=== PATIENT | male | born 1945 | race Caucasian/White ===

== ENCOUNTER 2020-05-25 10:49 | Inpatient (IN) | payer MEDICARE, OTHER, SELFPAY ==
[2020-05-25] VITALS (15 sets, daily range): BP systolic 106–139; BP diastolic 62–114; PULSE 78–140; RESP 18–20; TEMP 36.2–37.1; O2SAT 95–100; BMI 29.7
--- NOTE | ~2020-05-25 | XR_ITS ---
EXAMINATION: XR chest 1V portable INDICATION: Congestive heart failure and atrial fibrillation with RVR TECHNIQUE: Portable AP chest at 1322 hours COMPARISON: 03/06/2009 FINDINGS: The lung volumes are low. The lungs are free of acute opacities. There is no pleural effusi on or pneumothorax. The cardiomediastinal silhouette is normal for technique. There are partially aniya ged surgical changes in the neck and lower thoracic spine. Chronic left acromioclavicular joint separ ation is noted. IMPRESSION: 1. No acute cardiopulmonary abnormality. Reviewed, dictated and finalized at location A.
--- NOTE | 2020-05-25 11:02 | ECG_ITS ---
Measurements Intervals [place] Rate: 113 P: MD: 0 QRS: 28 QRSD: 132 T: 29 QT: 352 QTc: 483 Interpretive Statements ATRIAL FIBRILLATION WITH RAPID VENTRICULAR RESPONSE RIGHT BUNDLE BRANCH BLOCK INFERIOR INFARCT, AGE INDETERMINATE BASELINE ARTIFACT- I, II ABNORMAL ECG Electronically Signed On 05-25-2020 11:18:03 CDT by Ronny Elizondo D.O.
[2020-05-25 11:18] LABS: Basophils Absolute Auto 0.1 K/mm3 (0.0-0.1); Eosinophils Absolute Auto 0.5 K/mm3 (0-0.3); Eosinophils Percent Auto 4.4 % (0-4.4); Hemoglobin 11.1 g/dL (14.0-18.0); Immature Granulocyte Absolute 0.09 K/mm3 (0.00-0.031); Immature Granulocyte Percent A 0.8 % (0-0.5); Lymphocytes Absolute Auto 1.46 K/mm3 (0.9-3.2); Lymphocytes Percent Auto 13.7 % (18.3-44.2); Mean Corpuscular HGB Conc 31.7 g/dl (32-36); Mean Corpuscular Hemoglobin 29.2 pg (26-34); Mean Corpuscular Volume 92.1 fl (80-100); Mean Platelet Volume 9.2 fl (7.4-10.4); Monocytes Absolute Auto 0.7 K/mm3 (0.1-0.6); Monocytes Percent Auto 6.4 % (2.6-8.5); Neutrophils Absolute Auto 7.9 K/mm3 (1.3-6.7); Neutrophils Percent Auto 73.7 % (45.5-73.1); Platelet Count Result 326 k/mm3 (150-375); Red Cell Distribution Width 14.6 % (11.5-14.5); White Blood Count 10.7 K/mm3 (4.5-10.0)
[2020-05-25] MEDS: dilTIAZem HCl INJ 25 MG/5 ML VIAL 10 MG IV PUSH (11:18)
[2020-05-25 11:31] LABS: Anion Gap 12 mmol/L (8-16); Blood Urea Nitrogen 18 mg/dL (9-20); Carbon Dioxide 27 mmol/L (22-30); Chloride 99 mmol/L (98-107); Estimated CRCL calculation 71 ml/min; Estimated Glomerular Filt Rate > 60; Glucose 171 mg/dL (75-110); Potassium 4.1 mmol/L (3.4-5.0); Sodium 138 mmol/L (137-145)
[2020-05-25] MEDS: METOCLOPRAMIDE HCL INJ 10 MG/2 ML VIAL IV PUSH (11:35)
[2020-05-25] MEDS: SODIUM CHLORIDE 0.9% IV 1,000 ML 500 ML IV CONT (11:35)
[2020-05-25] MEDS: FAMOTIDINE 20 MG/2 ML VIAL IV PUSH (11:35)
[2020-05-25] MEDS: MORPHINE SULFATE 4 MG/ML INJ IV PUSH (11:35)
[2020-05-25 11:52] LABS: NT Pro B Type Natriuretic Pept 360 PG/ML (5-100); Troponin I < 0.012 ng/mL (0.000-0.034)
--- NOTE | 2020-05-25 11:54 | ED.SYNCOPE ---
HPI - Syncope General Chief Complaint: Syncope Stated Complaint: light headed Time Seen by Provider: 05/25/20 10:53 Source: patient Mode of arrival: ambulatory Limitations: no limitations History of Present Illness HPI narrative: Patient presents via EMS for near syncope at the rehab center today during physical therapy. His heart rate is A. fib rapid ventricular response, and continues to be high. He said he has had that before they gave him a medicine that stopped it. He does not have any chest pain or shortness of breath. He is in rehab for back surgery at 4 locations. He had the surgery 5 to 6 weeks ago at [facility]. He still in a lot of pain from that. He takes Percocet. complaint: felt faint and almost passed out Onset (ago): hour(s) -: minutes(s) Description of event: other (He sat in a chair at rehab and just felt faint.) Prodromal symptoms: other (Lightheaded and dizzy) Witnessed: Yes - by Bystander Context: during exertion Injuries sustained associated with event: none Current symptoms: lightheaded and other (Postop back pain) History: previous syncopal episode Treatments prior to arrival: other (Oxygen) Related Data Home Medications Medication Instructions Recorded Confirmed Tylenol Extra Strength 500 - 1,000 mg PO Q4-6H PRN 05/25/20 05/25/20 atorvastatin 40 mg PO DAILY 05/25/20 duloxetine 60 mg PO DAILY 05/25/20 enoxaparin 30 mg SUBCUT BID 05/25/20 gabapentin 600 mg PO TID 05/25/20 hydrochlorothiazide 25 mg PO DAILY 05/25/20 lidocaine [Lidoderm] 1 patch TOPICAL DAILY 05/25/20 metformin 1,000 mg PO DAILY 05/25/20 metoprolol succinate 50 mg PO DAILY 05/25/20 auhnukkwxucn-awg-nkvr-FA-vit K tablet PO 05/25/20 [Adults Multivitamin] polyethylene glycol 3350 [Miralax] 17 g PO DAILY 05/25/20 Allergies Allergy/AdvReac Type Severity Reaction Status Date / Time No Known Allergies Allergy Mild Unverified 07/24/18 10:06 Review of Systems Review of Systems: Narrative: CONSTITUTIONAL: Denies fever, chills, or sweats. EYES: Denies visual changes, redness, or discharge. ENT: Denies rhinorrhea, congestion, sore throat, or otalgia. CARDIOVASCULAR: Denies chest pain, palpitations, or edema. RESPIRATORY: Denies cough or dyspnea. GASTROINTESTINAL: Denies abdominal pain, nausea, vomiting, or diarrhea. GENITOURINARY: Denies dysuria or hematuria. SKIN: Denies rash or itching. MUSCULOSKELETAL: Denies back pain, joint pain, or myalgia. NEUROLOGIC: Denies headache, numbness, or weakness. He did have lightheadedness and dizziness. All systems reviewed & are unremarkable except as noted in HPI and below PMFSH Past Medical History Medical History Atrial fibrillation with RVR Surgical History Surgical History (Updated 05/25/20 @ 11:57 by Tashia Light MD) History of back surgery Exam Narrative: Exam Narrative: GENERAL: Looks pale, and sickly. HEAD: Normocephalic, atraumatic. EYES: PERRLA and EOMI. ENT: Nares clear, no rhinorrhea or epistaxis. Mucous membranes moist. NECK: Supple. CHEST: Clear to auscultation. No respiratory distress. Bandage on his upper right chest from the cervical surgery. HEART: Regular rate and rhythm. No murmur heard. Normal peripheral pulses. ABDOMEN: Soft, nontender, nondistended, normal active bowel sounds. EXTREMITIES: No edema. SKIN: Warm, dry, no rash. NEURO: No focal deficits. Alert and oriented x3. PSYCH: Unhappy and sad. 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 His heart rate slowed down his blood pressure was held he can be admitted. Date: 05/25/20 Time: 13:00 Consultations Consultation #1: Calling Mariela to admit to Dr. Arteaga. She accepts. Date: 05/25/20 Time: 13:00 Consultation #2: Calling Tereza Stephen to consult with Dr. Acosta. Date: 05/25/20 Time: 13:00 Vital Signs Vital signs: Vital Signs Temperature 98.7 F 05/25/20 10:49 Pulse Rate 140 H 05/25/20 10:49 Resp
--- NOTE | 2020-05-25 12:24 | PC.NURSE ---
patient refused orthostatic v/s stating he was in too much pain to move
[2020-05-25 14:50] LABS: Troponin I < 0.012 ng/mL (0.000-0.034)
--- NOTE | 2020-05-25 16:35 | ADMGEN ---
This patient, Ayo Judge, was admitted to IMU Room 211-01 on 05-25-2020 at 1555. Patient/family oriented to hospital policies and general routines including ID bracelet, bed and alarms, visiting hours, pain management, procedures, bathroom and other care routines, personal items, smoking policy, room service/diet, and visiting hours. Valuables list has been completed. Information on how to activate the Rapid Response Team has been discussed. Patient/Family are encouraged to report perceived risks to care and to ask questions if they do not understand what they are told or what they should do.
--- NOTE | 2020-05-25 17:16 | ECG_ITS ---
Measurements Intervals [place] Rate: 78 P: 56 HI: 284 QRS: 8 QRSD: 136 T: 63 QT: 401 QTc: 458 Interpretive Statements SINUS RHYTHM WITH FIRST DEGREE AV BLOCK RIGHT BUNDLE BRANCH BLOCK INFERIOR INFARCT, AGE INDETERMINATE ABNORMAL ECG Electronically Signed On 05-25-2020 19:22:41 CDT by Ronny Elizondo D.O.
[2020-05-25 18:03] LABS: Glucose Point of Care 105 (65-105)
--- NOTE | 2020-05-25 18:36 | PM.IMHP ---
H&P: HPI History of Present Illness Date/Time: 05/25/20 18:36 Chief complaint: A FIB RVR,POST OP PAIN,NEAR SYNCOPE Narrative: Ayo Judge is a 74 year old male the patient is currently at [facility] for rehab. Patient stated that he had back surgery approximately 6-8 weeks ago at [facility]. The patient is there for rehab facility. He is not quite sure if he had atrial fibrillation before but he thinks that he had something similar and they gave him Digoxin And then he said his heart rate was back to normal. patient had gotten up for physical therapy felt dizzy and had a near syncopal episode. Patient recently had back surgery in 4 different locations and had been wearing a neck brace. The patient stated that he is in a lot of pain and has been taking Percocet. He did not have any chest pain or palpitations but he felt lightheaded and dizzy. The patient stated that he is in pain today. The patient was found to be in AFib with RVR. The patient was started on a Cardizem drip. patient was given Reglan for nausea as well as Pepcid and IV fluids. Cardiology has been consulted. The patient had converted to sinus rhythm shortly after he was admitted to IMU. Cardiology has been called in orders received. The patient had been on metoprolol succinate are ready. However this dose has been changed by Cardiology. I have spent approximately 45 minutes in the patient's room. Date of service is 05/25/2020. Review of Systems Review of Systems: All systems reviewed & are unremarkable except as noted in HPI and below Constitutional: Constitutional: Reports as per HPI and Reports no additional constitutional complaints Eyes: Eyes: Reports as per HPI and Reports no additional eye complaints ENT: Reports system reviewed and no additional complaints, except as documented and Reports Normal hearing present Cardiovascular: Cardiovascular: Reports no additional cardiovascular complaints Respiratory: Respiratory: Reports no additional respiratory complaints and Reports no additional respiratory complaints Gastrointestinal: Gastrointestinal: Reports as per HPI and Reports no additional gastrointestinal complaints Musculoskeletal: Musculoskeletal: Reports no additional musculoskeletal complaints Integumentary/Breasts: Skin/Breast: Reports system reviewed and no additional complaints, except as docu and Reports as per HPI Neurologic: Reports system reviewed and no additional complaints, except as documented, Reports as per HPI and Reports Normal hearing present Psychiatric: Psychiatric: Reports no additional psychiatric complaints and Reports as per HPI Endocrine: Endocrine: Reports no additional endocrine complaints Hematologic/Lymphatic: Hematologic/Lymphatic: Reports no additional hematologic/lymphatic complaints Allergic/Immunologic: Allergic/Immunologic: Reports no additional allergic/immunologic complaints [facility] Past Medical History Medical History (Updated 05/25/20 @ 19:18 by Mariela Solomon NP) Aftercare following right shoulder joint replacement surgery Atrial fibrillation with RVR CAD (coronary artery disease) DM2 (diabetes mellitus, type 2) [id number] Hyperlipidemia Osteoarthritis Surgical History Surgical History (Updated 05/25/20 @ 19:18 by Mariela Solomon NP) H/O carotid endarterectomy bilat with focal cord injury H/O heart artery stent 2 cardiac stents 0 9 at [facility] History of back surgery for different area is for his back surgery. 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 His had a 3rd right total knee replacement in the s. Family History Family History (Updated 05/25/20 @ 19:03 by Mariela Solomon NP) Mother Cancer Father Cancer Hypertension Cerebrovascular accident Sibling Diabetes mellitus Social History Social History (Updated 05/25/20 @ 19:18 by Mariela Solomon NP) Social History: the [place]
[2020-05-25 18:55] LABS: Troponin I < 0.012 ng/mL (0.000-0.034)
[2020-05-25] MEDS: METOPROLOL TARTRATE 50 MG TAB PO (21:09)
[2020-05-25 21:17] LABS: Glucose Point of Care 134 (65-105)
[2020-05-26] VITALS (20 sets, daily range): BP systolic 99–147; BP diastolic 45–86; PULSE 81–101; RESP 18–85; TEMP 36–36.7; O2SAT 20–99; BMI 29.7
--- NOTE | 2020-05-26 | ECHO_ITS ---
Patient Info Name: Ayo Judge Age: 74 years : 1945 Gender: Male Ht: 68 in Wt: 196 lbs BSA: 2.09 m2 HR: 90 bpm BP: 99 / 74 mmHg Heart Rhythm: Sinus Rhythm Technical Quality: Fair Exam Date: 05/26/2020 11:34 AM Exam Location: [facility] Pulmonary Patient Status: Inpatient Admit Date: 05/25/2020 Staff Ordering Physician: Mariela Solomon NP Property Claims Adjuster: Shiv Kingston RDCS Attending Provider: Jose Arteaga MD Referring Physician: Juanito BEAUCHAMP; Exam Type: CA echo dop color flow w con Study Info Indications I48.0 - Paroxysmal atrial fibrillation Complete two-dimensional, color flow and Doppler transthoracic echocardiogram is performed with contrast to opacify the left ventricle and to improve the deliniation of the left ventricle endocardial borders. Contrast/Agitated Saline Contrast/Ag. Saline: Definity Amount: 3.00 ml Existing IV Access: Yes History/Risk Factors New onset of Afib; CAD s/p stents x2 2009, DM2. Summary 1. Left ventricular systolic function is normal, estimated at 55-60%. 2. There is mildly increased left ventricular wall thickness. 3. The left ventricular diastolic function is grade I diastolic dysfunction. 4. Right ventricular chamber dimension is mildly enlarged. 5. Right ventricular systolic function is normal. 6. Right atrial chamber dimension is mildly enlarged. 7. There is mild aortic valve stenosis with a peak velocity of 185.73 cm/s, mean gradient of 5 mmHg, and aortic valve area of 1.60 cm2. 8. Unable to estimate PA systolic pressure due to poor spectral resolution of tricuspid regurgitant jet velocity. 9. Technically difficult study with limited views despite definity echo contrast enhancement. Left Ventricle Left ventricular chamber dimension is normal. Left ventricular systolic function is normal, estimated at 55-60%. There is mildly increased left ventricular wall thickness. The left ventricular diastolic function is grade I diastolic dysfunction. Right Ventricle Right ventricular chamber dimension is mildly enlarged. Right ventricular systolic function is normal. Left Atria Left atrial chamber dimension is not well visualized. Right Atria Right atrial chamber dimension is mildly enlarged. Aortic Valve The aortic valve is not well visualized. There is mild aortic valve stenosis with a peak velocity of 185.73 cm/s, mean gradient of 5 mmHg, and aortic valve area of 1.60 cm2. Pulmonic Valve The pulmonic valve is not well visualized. Mitral Valve The mitral valve has normal leaflets. There is trace mitral valve regurgitation. The mitral valve annulus is mildly calcified. Tricuspid Valve The tricuspid valve leaflets are not well visualized. Unable to estimate PA systolic pressure due to poor spectral resolution of tricuspid regurgitant jet velocity. Pericardium/Pleural The pericardium appears not well visualized. Aorta The aortic root size at the sinus of Valsalva is normal. Left Ventricular Outflow Tract Name Value Normal LVOT 2D LVOT Diameter 1.96 cm LVOT Doppler LVOT Peak Gradient
[2020-05-26 07:38] LABS: Alanine Aminotransferase 14 U/L (4-50); Albumin Level 3.7 g/dL (3.5-5.1); Alkaline Phosphatase 108 U/L (38-126); Anion Gap 8 mmol/L (8-16); Aspartate Amino Transferase 26 U/L (17-59); Bilirubin,Total 0.6 mg/dL (0.2-1.3); Blood Urea Nitrogen 18 mg/dL (9-20); Calcium 9.1 mg/dL (8.4-10.2); Carbon Dioxide 29 mmol/L (22-30); Chloride 99 mmol/L (98-107); Estimated CRCL calculation 80 ml/min; Estimated Glomerular Filt Rate > 60; Glucose 123 mg/dL (75-110); Magnesium 1.5 mg/dL (1.6-2.3); Potassium 3.9 mmol/L (3.4-5.0); Sodium 136 mmol/L (137-145)
[2020-05-26 07:43] LABS: Glucose Point of Care 131 (65-105)
[2020-05-26 08:37] LABS: Basophils Absolute Auto 0.1 K/mm3 (0.0-0.1); Eosinophils Absolute Auto 0.5 K/mm3 (0-0.3); Eosinophils Percent Auto 4.2 % (0-4.4); Hematocrit 33.4 % (42.0-52.0); Hemoglobin 10.8 g/dL (14.0-18.0); Immature Granulocyte Percent A 0.9 % (0-0.5); Lymphocytes Absolute Auto 1.28 K/mm3 (0.9-3.2); Lymphocytes Percent Auto 11.2 % (18.3-44.2); Mean Corpuscular HGB Conc 32.3 g/dl (32-36); Mean Corpuscular Hemoglobin 29.6 pg (26-34); Mean Corpuscular Volume 91.5 fl (80-100); Mean Platelet Volume 9.1 fl (7.4-10.4); Monocytes Absolute Auto 0.6 K/mm3 (0.1-0.6); Monocytes Percent Auto 5.2 % (2.6-8.5); Neutrophils Absolute Auto 8.8 K/mm3 (1.3-6.7); Neutrophils Percent Auto 77.5 % (45.5-73.1); Platelet Count Result 361 k/mm3 (150-375); Red Blood Count 3.65 M/mm3 (4.6-6.20); Red Cell Distribution Width 14.5 % (11.5-14.5); White Blood Count 11.4 K/mm3 (4.5-10.0)
[2020-05-26] MEDS: ATORVASTATIN 40 MG TABLET PO (09:11)
[2020-05-26] MEDS: SENNA/DOCUSATE SODIUM TABLET 1 TAB PO ×2 (09:12→17:26)
[2020-05-26] MEDS: GABAPENTIN 300 MG CAPSULE 600 MG PO ×3 (09:12→17:26)
[2020-05-26] MEDS: ENOXAPARIN 30 MG/0.3 ML SYRINGE SUB-Q ×2 (09:12→17:26)
[2020-05-26] MEDS: MULTIVITAMINS /C LUTEIN (CENTRUM SILVER) TABLET *BKC 1 TAB PO (09:12)
[2020-05-26] MEDS: DULoxetine HCL 60 MG CAPSULE.DR PO (09:12)
[2020-05-26] MEDS: hydroCHLOROthiazide 25 MG TABLET PO (09:12)
[2020-05-26] MEDS: metFORMIN HCL 500 MG TABLET 1000 MG PO (09:12)
--- NOTE | 2020-05-26 09:12 | PM.IMPN ---
Progress Note: A&P Assessment and Plan (1) Atrial fibrillation with RVR: Code(s): I48.91 - Unspecified atrial fibrillation Status: Acute Assessment and Plan: Started on IV diltiazem from the emergency room which has been discontinued with patient receiving an additional dose of metoprolol overnight. On review of telemetry on 05/26/2020, patient is in sinus rhythm. Still having fluctuating heart rate with heart rate increased into 130s at times. Does also appear to have first-degree AV block. Cardiology consulted and appreciate input. Discussed with Dr. Garcia today. Already on metoprolol succinate ER but will increase dose. Continue to monitor heart rate and adjust treatment as needed. Currently on Lovenox but looking at Eliquis or Xarelto when ready for discharge. PT/OT ordered as patient was already in rehab. COVID-19 testing ordered as patient will need this to return to [facility]. Continue to monitor. Discharge when stable and cleared by Cardiology. (2) Hypomagnesemia: Code(s): E83.42 - Hypomagnesemia Status: Acute Assessment and Plan: Magnesium 1.5 today with IV replacement given. Continue to follow and replace as needed. (3) CAD (coronary artery disease): Qualifiers: Associated angina: without angina Coronary Disease-Associated Artery/Lesion type: [place] artery [place] vs. transplanted heart: [place] heart Qualified Code(s): I25.10 - Atherosclerotic heart disease of [place] coronary artery without angina pectoris Code(s): I25.10 - Atherosclerotic heart disease of [place] coronary artery without angina pectoris Status: Chronic Assessment and Plan: Known heart disease. Currently with no chest pain. Remains on metoprolol with dosage adjustment for heart rate as noted above. Continue atorvastatin. Will continue to monitor. (4) DM2 (diabetes mellitus, type 2): Qualifiers: Diabetes mellitus chcf insulin use: without chcf use Diabetes mellitus complication status: with other specified complication Qualified Code(s): E11.69 - Type 2 diabetes mellitus with other specified complication Code(s): E11.9 - Type 2 diabetes mellitus without complications Status: Chronic Assessment and Plan: Glucose reviewed on 05/26/2020 and presently stable. Remains on home metformin. Sliding scale insulin available as needed. Will continue to monitor and adjust treatment as needed. (5) CHF (congestive heart failure): Qualifiers: Heart failure chronicity: unspecified Heart failure type: unspecified Qualified Code(s): I50.9 - Heart failure, unspecified Code(s): I50.9 - Heart failure, unspecified Status: Acute Assessment and Plan: Echocardiogram has been ordered with results pending. Remains on metoprolol. No fluid overload at this point. (6) Hyperlipidemia: Qualifiers: Hyperlipidemia type: unspecified Qualified Code(s): E78.5 - Hyperlipidemia, unspecified Code(s): E78.5 - Hyperlipidemia, unspecified Status: Chronic Assessment and Plan: Continue atorvastatin. (7) Osteoarthritis: Qualifiers: Osteoarthritis location: unspecified site Osteoarthritis type: unspecified Qualified Code(s): M19.90 - Unspecified osteoarthritis, unspecified site Code(s): M19.90 - Unspecified osteoarthritis, unspecified site Status: Acute Assessment and Plan: No current issue. Will monitor. PT/OT to evaluate and treat. (8) DVT prophylaxis: Code(s): Z29.9 - Encounter for prophylactic measures, unspecified Status: Acute Assessment and Plan: Lovenox. Time Spent With Patient Time with patient: 15 - 25 minutes Subjective Date/time seen: 05/26/20 09:12 Interval history: Date of Service: 05/26/2020. Patient admitted with atrial fibrillation with RVR. Was on IV diltiazem last night but converted. Given additional oral metoprolol.
[2020-05-26] MEDS: METOPROLOL SUCCINATE EXT REL 100 MG TABCR PO (09:13)
[2020-05-26] MEDS: polyethylene glycoL 3350 17 GM POWD.PACK PO (09:13)
--- NOTE | 2020-05-26 11:14 | ECG_ITS ---
Measurements Intervals [place] Rate: 89 P: 66 NV: 304 QRS: 20 QRSD: 142 T: 48 QT: 393 QTc: 480 Interpretive Statements SINUS RHYTHM WITH FIRST DEGREE AV BLOCK FREQUENT ATRIAL PREMATURE COMPLEXES RIGHT BUNDLE BRANCH BLOCK INFERIOR INFARCT, AGE INDETERMINATE BASELINE WANDER- I, II, III, V1, V4-V5 ABNORMAL ECG Electronically Signed On 05-26-2020 16:39:45 CDT by Ronny Elizondo D.O.
[2020-05-26 12:02] LABS: Glucose Point of Care 124 (65-105)
[2020-05-26] MEDS: PERFLUTREN LIPID MICROSPHERES 1.5 ML VIAL DILUTED TO 10 ML TOTAL VOLUME IV PUSH (12:09)
--- NOTE | 2020-05-26 12:24 | PM.CNCAR ---
Assessment and Plan Assessment and plan (1) Atrial flutter with rapid ventricular response: Code(s): I48.92 - Unspecified atrial flutter Status: Acute Assessment and Plan: Paroxysmal. Sinus rhythm with first-degree AV block generally, however, while of episodes of RVR, tolerating reasonably well. Increase Toprol XL to 150 mg daily. Given additional 50 mg p.o. x1 in addition to 100 mg he already received. Systemic anticoagulation. CHADS2 Vasc score 4. discussed embolic stroke risk versus bleeding in great detail. All questions answered to his satisfaction. Discussed options including warfarin, and NOAC's with preference toward Eliquis 5mg BID or Xarelto 20mg daily if able to afford. In which case, we would discontinue enoxaparin and reduce aspirin to 81 mg daily. As he has paroxysmal no indication for cardioversion unless sustained with refractory rate. Medical management and rate control strategy advised at this time. Outpatient considerations for more advanced therapy including ablation of atrial flutter. Will review 2D echocardiogram when available. (2) CAD (coronary artery disease): Qualifiers: Coronary Disease-Associated Artery/Lesion type: [place] artery [place] vs. transplanted heart: [place] heart Associated angina: without angina Qualified Code(s): I25.10 - Atherosclerotic heart disease of [place] coronary artery without angina pectoris Code(s): I25.10 - Atherosclerotic heart disease of [place] coronary artery without angina pectoris Status: Chronic Assessment and Plan: stable, continue current medical therapy. continue statin, beta-huan (3) Hyperlipidemia: Qualifiers: Hyperlipidemia type: unspecified Qualified Code(s): E78.5 - Hyperlipidemia, unspecified Code(s): E78.5 - Hyperlipidemia, unspecified Status: Chronic Assessment and Plan: atorvastatin 40 mg at bedtime. check lipid panel. (4) DM2 (diabetes mellitus, type 2): Code(s): E11.9 - Type 2 diabetes mellitus without complications Status: Chronic Assessment and Plan: Per primary service History of Present Illness History of Present Illness Consult date/time: Date of service: 05/26/20 12:24 This is a cardiology consultation at the request of Mariela Solomon PA of the [facility] for our opinion regarding atrial flutter with RVR. Requesting physician: Mariela Solomon NP Consult reason: atrial fibrillation (atrial flutter) Reason For Visit: A FIB RVR,POST OP PAIN,NEAR SYNCOPE Narrative: Patient is a 74-year-old male past medical history significant for CAD hypertension, diabetes mellitus with recent [place] for rehabilitation after having undergone extensive back surgery at [facility] in the past 2 months. Was noted that prior to arrival he had been participating with physical therapy when he felt dizzy and experienced a near syncopal event. Patient denied palpitations, chest pain or significant shortness of breath and was sent to the emergency room for evaluation. He was found to be in atrial fibrillation w/ RVR, however, telemetry revealed atrial flutter with variable AV block. nonetheless, patient was initiated on a diltiazem infusion when he spontaneously converted to sinus rhythm with a first-degree AV block and PACs. As an outpatient patient was on Toprol XL 50 mg daily which was increased to 100 mg daily. Diltiazem infusion has been discontinued. He states he feels fine with exception of back and knee pain. No chest pain any time. Electrolytes have been stable with exception of magnesium 1.5. TSH 2.450 an troponins negative. He was on enoxaparin 30 mg subcutaneous twice daily at rehabilitation for DVT prophylaxis. Review of Systems Review of Systems: All systems reviewed & are unremarkable except as noted in HPI and below Constitutional: Constitutional: Reports as per HPI, Reports no additional constitutional complaints
[2020-05-26] MEDS: MAGNESIUM SULF 2 GM/WATER 50ML 2 GM/50 ML BAG IVPB (12:35)
[2020-05-26] MEDS: METOPROLOL SUCCINATE EXT REL 50 MG TABCR PO (12:35)
[2020-05-26] MEDS: SILVERGEL (ELTA) 45 ML 1 APPLIC TOPICAL (12:37)
--- NOTE | 2020-05-26 14:55 | PCOTNOTE ---
Attempted OT evaluation, Pt reports would rather do therapy tomorrow due to wanting to eat and having 10/10 pain. RN notified. Will attempt OT evaluation in AM.
[2020-05-26 17:32] LABS: Glucose Point of Care 110 (65-105)
[2020-05-26 20:36] LABS: Glucose Point of Care 152 (65-105)
[2020-05-27] VITALS (14 sets, daily range): BP systolic 116–136; BP diastolic 60–84; PULSE 83–106; RESP 16–20; TEMP 36.2–36.8; O2SAT 95–100
[2020-05-27 05:12] LABS: Anion Gap 8 mmol/L (8-16); Blood Urea Nitrogen 20 mg/dL (9-20); Calcium 8.8 mg/dL (8.4-10.2); Carbon Dioxide 29 mmol/L (22-30); Chloride 99 mmol/L (98-107); Estimated CRCL calculation 70 ml/min; Estimated Glomerular Filt Rate > 60; Glucose 133 mg/dL (75-110); Magnesium 1.7 mg/dL (1.6-2.3); Sodium 136 mmol/L (137-145)
[2020-05-27 08:22] LABS: Glucose Point of Care 121 (65-105)
--- NOTE | 2020-05-27 09:37 | P.CDI_ITS ---
CDI Query Clarification Request - CHF, type unspecified and chronicity unspecified has been documented - 05/26 Echo summary EF 55-60%, grade 1 diastolic dysfunction Please further specify type and acuity of CHF: * Systolic *Acute * Diastolic *Chronic * Both systolic and diastolic *Acute on chronic * Unable to determine *Unable to determine <Coleen Salomon RN - Last Filed: 05/27/20 09:40> ACUTE ON CHRONIC DIASTOLIC CHF EXACERBATION <Mariana Reno MD - Last Filed: 05/28/20 08:59>
--- NOTE | 2020-05-27 09:42 | PCOTNOTE ---
OT evaluation attempted. Per RN patient hold for therapy today. Will follow.
[2020-05-27] MEDS: SILVERGEL (ELTA) 45 ML 1 APPLIC TOPICAL (09:46)
[2020-05-27] MEDS: METOPROLOL SUCCINATE EXT REL 100 MG TABCR PO (09:47)
[2020-05-27] MEDS: MULTIVITAMINS /C LUTEIN (CENTRUM SILVER) TABLET *BKC 1 TAB PO (09:47)
[2020-05-27] MEDS: METOPROLOL SUCCINATE EXT REL 50 MG TABCR PO (09:47)
[2020-05-27] MEDS: hydroCHLOROthiazide 25 MG TABLET PO (09:48)
[2020-05-27] MEDS: metFORMIN HCL 500 MG TABLET 1000 MG PO (09:48)
[2020-05-27] MEDS: ATORVASTATIN 40 MG TABLET PO (09:49)
[2020-05-27] MEDS: ENOXAPARIN 30 MG/0.3 ML SYRINGE SUB-Q ×2 (09:49→17:27)
[2020-05-27] MEDS: DULoxetine HCL 60 MG CAPSULE.DR PO (09:49)
[2020-05-27] MEDS: GABAPENTIN 300 MG CAPSULE 600 MG PO ×3 (09:49→17:27)
[2020-05-27] MEDS: SENNA/DOCUSATE SODIUM TABLET 1 TAB PO ×2 (09:49→17:28)
--- NOTE | 2020-05-27 11:31 | PM.PNCARD ---
Progress Note: A&P Assessment and Plan (1) Atrial flutter with rapid ventricular response: Code(s): I48.92 - Unspecified atrial flutter Status: Acute Assessment and Plan: Paroxysmal. Sinus rhythm with first-degree AV block generally, however, while in episodes of RVR, tolerating reasonably well. Increased Toprol XL to 150 mg daily. Systemic anticoagulation. CHADS2 Vasc score 4. Dr Garcia discussed embolic stroke risk versus bleeding in great detail. Options were discussed as well. Discontinue enoxaparin and reduce aspirin to 81 mg daily when DOAC is started. Will hold off starting until neurological status is sorted out. Medical management and rate control strategy advised at this time. Outpatient considerations for more advanced therapy including ablation of atrial flutter. Echo 05/26/2020: 1. Left ventricular systolic function is normal, estimated at 55-60%. 2. There is mildly increased left ventricular wall thickness. 3. The left ventricular diastolic function is grade I diastolic dysfunction. 4. Right ventricular chamber dimension is mildly enlarged. 5. Right ventricular systolic function is normal. 6. Right atrial chamber dimension is mildly enlarged. 7. There is mild aortic valve stenosis with a peak velocity of 185.73 cm/s, mean gradient of 5 mmHg, and aortic valve area of 1.60 cm2. 8. Unable to estimate PA systolic pressure due to poor spectral resolution of tricuspid regurgitant jet velocity. 9. Technically difficult study with limited views despite definity echo contrast enhancement. (2) CAD (coronary artery disease): Qualifiers: Coronary Disease-Associated Artery/Lesion type: [place] artery [place] vs. transplanted heart: [place] heart Associated angina: without angina Qualified Code(s): I25.10 - Atherosclerotic heart disease of [place] coronary artery without angina pectoris Code(s): I25.10 - Atherosclerotic heart disease of [place] coronary artery without angina pectoris Status: Chronic Assessment and Plan: stable, continue current medical therapy. continue statin, beta-huan (3) Hyperlipidemia: Qualifiers: Hyperlipidemia type: unspecified Qualified Code(s): E78.5 - Hyperlipidemia, unspecified Code(s): E78.5 - Hyperlipidemia, unspecified Status: Chronic Assessment and Plan: atorvastatin 40 mg at bedtime. Check lipid panel. (4) DM2 (diabetes mellitus, type 2): Qualifiers: Diabetes mellitus termite control servicer insulin use: without detention use Diabetes mellitus complication status: with other specified complication Qualified Code(s): E11.69 - Type 2 diabetes mellitus with other specified complication Code(s): E11.9 - Type 2 diabetes mellitus without complications Status: Chronic Assessment and Plan: Per primary service Additional Plan Plan discussed with Dr Acosta [id number] 05/27/2020 Subjective Date/time seen: 05/27/20 11:31 Interval history: Follow up for: atrial flutter with rapid ventricular response. Converted on diltiazem overnight. Date of Service: 05/27/2020. Subjective: Denied chest discomfort or shortness of breath. Concerned about possible seizures. States he was lightheaded when they were trying to get him up this morning. Slightly agitated. Not sure about all the medications he received this morning. Review of Systems Review of Systems: All systems reviewed & are unremarkable except as noted in HPI and below Constitutional: Constitutional: Reports as per HPI and Reports fatigue Eyes: Eyes: Denies blurry vision ENT: Reports Normal hearing present and Denies headache(s) Cardiovascular: Cardiovascular: Denies chest pain, Denies leg edema, Reports lightheadedness ( Dizziness, near syncope), Denies palpitations and Denies dys
--- NOTE | 2020-05-27 12:28 | PM.IMPN ---
Progress Note: A&P Assessment and Plan (1) Atrial fibrillation with RVR: Code(s): I48.91 - Unspecified atrial fibrillation Status: Acute Assessment and Plan: Toprol XL to 150 mg daily. lovenox and ASA. COVID-19 testing ordered as patient will need this to return to [facility]. Continue to monitor. Discharge when stable and cleared by Cardiology. (2) Hypomagnesemia: Code(s): E83.42 - Hypomagnesemia Status: Acute Assessment and Plan: Magnesium is corrected. (3) CAD (coronary artery disease): Qualifiers: Coronary Disease-Associated Artery/Lesion type: [place] artery [place] vs. transplanted heart: [place] heart Associated angina: without angina Qualified Code(s): I25.10 - Atherosclerotic heart disease of [place] coronary artery without angina pectoris Code(s): I25.10 - Atherosclerotic heart disease of [place] coronary artery without angina pectoris Status: Chronic Assessment and Plan: Known heart disease. Continue home medications (4) DM2 (diabetes mellitus, type 2): Qualifiers: Diabetes mellitus nursing home insulin use: without long term care social worker use Diabetes mellitus complication status: with other specified complication Qualified Code(s): E11.69 - Type 2 diabetes mellitus with other specified complication Code(s): E11.9 - Type 2 diabetes mellitus without complications Status: Chronic Assessment and Plan: pt is on home metformin. SSI (5) CHF (congestive heart failure): Qualifiers: Heart failure chronicity: unspecified Heart failure type: unspecified Qualified Code(s): I50.9 - Heart failure, unspecified Code(s): I50.9 - Heart failure, unspecified Status: Acute Assessment and Plan: Left ventricular chamber dimension is normal. Left ventricular systolic function is normal, estimated at 55-60%. There is mildly increased left ventricular wall thickness. The left ventricular diastolic function is grade I diastolic dysfunction. (6) Hyperlipidemia: Qualifiers: Hyperlipidemia type: unspecified Qualified Code(s): E78.5 - Hyperlipidemia, unspecified Code(s): E78.5 - Hyperlipidemia, unspecified Status: Chronic Assessment and Plan: Continue atorvastatin. (7) Osteoarthritis: Qualifiers: Osteoarthritis location: unspecified site Osteoarthritis type: unspecified Qualified Code(s): M19.90 - Unspecified osteoarthritis, unspecified site Code(s): M19.90 - Unspecified osteoarthritis, unspecified site Status: Acute Assessment and Plan: No current issue. Will monitor. PT/OT to evaluate and treat. (8) DVT prophylaxis: Code(s): Z29.9 - Encounter for prophylactic measures, unspecified Status: Acute Assessment and Plan: Lovenox. (9) Seizure: Code(s): R56.9 - Unspecified convulsions Status: Acute Assessment and Plan: Witnessed seizure in bed sugars and mg levels are stable. IV keppra started, seizure precautions, neurology consulted. Subjective Date/time seen: 05/27/20 12:28 Interval history: Patient admitted with atrial fibrillation with RVR. Pt had a witness seizure at the bedside. Neurology consulted. IV keppra started pt has a history of back surgery. History of DM, CAD and CHF and HLD. Pt HR is in the 100s today Review of Systems Review of Systems: All systems reviewed & are unremarkable except as noted in HPI and below ROS unobtainable: Yes other (seizure generalised ) Exam Narrative: Exam Narrative: Awake and alert. Resp: Auscultation: clear to auscultation bilaterally, no rales and no wheezes Cardio: Palpation: normal PMI Heart sounds: S2 normal heart sound present GI: Inspection: other ( Surgical incision well approximated to right midline abdomen. Diagonal ) Auscultation: normal bowel sounds Skin: General skin exam: normal color and no rashes or lesions noted Lesions:
[2020-05-27 12:36] LABS: Glucose Point of Care 151 (65-105)
[2020-05-27 14:19] LABS: SARS-CoV-2 RNA PCR Negative
--- NOTE | 2020-05-27 14:54 | WPDNEURCNPN ---
Assessment and Plan Assessment and plan (1) Seizure: Code(s): R56.9 - Unspecified convulsions Status: Acute (2) Hypomagnesemia: Code(s): E83.42 - Hypomagnesemia Status: Acute (3) Atrial flutter with rapid ventricular response: Code(s): I48.92 - Unspecified atrial flutter Status: Acute (4) DVT prophylaxis: Code(s): Z29.9 - Encounter for prophylactic measures, unspecified Status: Acute (5) H/O heart artery stent: Code(s): Z95.5 - Presence of coronary angioplasty implant and graft Status: Acute (6) CAD (coronary artery disease): Qualifiers: Coronary Disease-Associated Artery/Lesion type: [place] artery [place] vs. transplanted heart: [place] heart Associated angina: without angina Qualified Code(s): I25.10 - Atherosclerotic heart disease of [place] coronary artery without angina pectoris Code(s): I25.10 - Atherosclerotic heart disease of [place] coronary artery without angina pectoris Status: Chronic (7) Osteoarthritis: Qualifiers: Osteoarthritis location: unspecified site Osteoarthritis type: unspecified Qualified Code(s): M19.90 - Unspecified osteoarthritis, unspecified site Code(s): M19.90 - Unspecified osteoarthritis, unspecified site Status: Acute (8) Hyperlipidemia: Qualifiers: Hyperlipidemia type: unspecified Qualified Code(s): E78.5 - Hyperlipidemia, unspecified Code(s): E78.5 - Hyperlipidemia, unspecified Status: Chronic (9) DM2 (diabetes mellitus, type 2): Qualifiers: Diabetes mellitus supervisor long goods insulin use: without fci use Diabetes mellitus complication status: with other specified complication Qualified Code(s): E11.69 - Type 2 diabetes mellitus with other specified complication Code(s): E11.9 - Type 2 diabetes mellitus without complications Status: Chronic (10) CHF (congestive heart failure): Qualifiers: Heart failure chronicity: unspecified Heart failure type: unspecified Qualified Code(s): I50.9 - Heart failure, unspecified Code(s): I50.9 - Heart failure, unspecified Status: Acute (11) Post-op pain: Code(s): G89.18 - Other acute postprocedural pain Status: Acute (12) Atrial fibrillation with RVR: Code(s): I48.91 - Unspecified atrial fibrillation Status: Acute Additional Plan discussed with the patient and also the attending nurse we should continue the Keppra and the present dosages and also recommended a brain MRI without contrast and an EEG I will be happy to follow while he is here Consult date: 05/27/20 Time Seen: 14:00 HPI: Ayo Judge is a 74 year old male this gentleman is right-handed make and alert and does not recall any of the seizure described by the attending nurse who was present at the time of the examination apparently while walking to the bathroom he had a brief spell of shaking lasting for about 5 seconds or so with a brief loss of consciousness and unresponsiveness and these seizure episode have reoccurred at least 4 times followed by a brief postictal confusion at the time of this examination the patient denies any headache nausea vomiting chest pain shortness of breath fever chills or sore throat he was primarily admitted because of the cardiac reasons and does not have any history of having had the seizures the question is whether the seizures related to the atrial fibrillation with rapid ventricular response or else are related to a 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
[2020-05-27 17:06] LABS: Glucose Point of Care 137 (65-105)
[2020-05-27] MEDS: levETIRAcetam 500MG/NACL 100ML 500 MG/100 ML BAG 400 MG IVPB (20:49)
[2020-05-27 20:59] LABS: Glucose Point of Care 183 (65-105)
[2020-05-28] VITALS (17 sets, daily range): BP systolic 101–113; BP diastolic 55–88; PULSE 59–118; RESP 16–20; TEMP 35.9–36.7; O2SAT 97–100
--- NOTE | 2020-05-28 02:27 | PC.NURSE ---
05/28/20:[id number]: patient yelling out for help. staff went in to see why patient was yelling. patient was angry that his neck brace was not on and was yelling that it was supposed to be on at all times per dr's orders. only off for 3 hours a day while eating. I told the patient that I was unaware of these orders. That there were no orders in the chart and the nurse did not pass this on to me about the neck brace. I did place the brace on for him. he said that I had twisted all around earlier and he was not supposed to be moved. Patient did not mention this all shift until now. The patient then asked if I was satisfied with my response for court. Then said that he was going to punch me in the face . Because I said he should stop being mean to me when I was just trying to help him. When he threatened me I told him that I was done with him for now and left the room. He then called me back to say that I had called him all kinds of horrible named, which I never did. And kept calling me a liar about the order. Telling me how horrible that I am and that I am a terrible nurse for not doing what he says. I changed nurses with him and alerted house shorer of his actions.
[2020-05-28 05:34] LABS: Basophils Absolute Auto 0.1 K/mm3 (0.0-0.1); Basophils Percent Auto 0.8 % (0.2-1.2); Eosinophils Absolute Auto 0.5 K/mm3 (0-0.3); Eosinophils Percent Auto 3.8 % (0-4.4); Hematocrit 30.9 % (42.0-52.0); Hemoglobin 9.7 g/dL (14.0-18.0); Immature Granulocyte Absolute 0.13 K/mm3 (0.00-0.031); Immature Granulocyte Percent A 1.1 % (0-0.5); Lymphocytes Absolute Auto 2.01 K/mm3 (0.9-3.2); Lymphocytes Percent Auto 16.9 % (18.3-44.2); Mean Corpuscular HGB Conc 31.4 g/dl (32-36); Mean Corpuscular Volume 92.5 fl (80-100); Mean Platelet Volume 9.4 fl (7.4-10.4); Monocytes Absolute Auto 0.8 K/mm3 (0.1-0.6); Monocytes Percent Auto 6.9 % (2.6-8.5); Neutrophils Absolute Auto 8.4 K/mm3 (1.3-6.7); Neutrophils Percent Auto 70.5 % (45.5-73.1); Platelet Count Result 357 k/mm3 (150-375); Red Blood Count 3.34 M/mm3 (4.6-6.20); Red Cell Distribution Width 14.6 % (11.5-14.5); White Blood Count 11.9 K/mm3 (4.5-10.0)
[2020-05-28 05:41] LABS: Cholesterol 85 mg/dL (0-200); HDL Direct 20 mg/dL; Triglycerides 119 mg/dL (<150)
[2020-05-28 05:44] LABS: Alanine Aminotransferase 14 U/L (4-50); Albumin Level 3.4 g/dL (3.5-5.1); Alkaline Phosphatase 90 U/L (38-126); Anion Gap 8 mmol/L (8-16); Aspartate Amino Transferase 24 U/L (17-59); Bilirubin,Total 0.2 mg/dL (0.2-1.3); Blood Urea Nitrogen 30 mg/dL (9-20); Calcium 8.7 mg/dL (8.4-10.2); Carbon Dioxide 29 mmol/L (22-30); Chloride 100 mmol/L (98-107); Estimated CRCL calculation 71 ml/min; Estimated Glomerular Filt Rate > 60; Glucose 151 mg/dL (75-110); Potassium 3.9 mmol/L (3.4-5.0); Sodium 137 mmol/L (137-145)
[2020-05-28 05:51] LABS: LDL Cholesterol Direct 40 mg/dL
--- NOTE | 2020-05-28 08:00 | NEURO_ITS ---
TEST: ELECTROENCEPHALOGRAM DIAGNOSIS: POSSIBLE SEIZURE PATIENT NUMBER: [id number] EEG NUMBER: [id number] RECORDING DATE: 05/28/20 CONDITION OF RECORDING: Awake; Patient was moving and talking throughout most of the tracing. EEG DESCRIPTION: Basic resting occipital frequency consists of moderate amount of poorly organized low voltage 8-10hz alpha mixed with low voltage 15-21hz beta. During drowsiness low voltage beta activity is seen diffusely mixed with waxing and waning posterior alpha rhythms. Multiple movement and muscle artifacts seen throughout the tracing. Nonparoxysmal. Nonfocal. Nonlateralizing. IMPRESSION: No significant abnormalities noted. [facility]
[2020-05-28] MEDS: GABAPENTIN 300 MG CAPSULE 600 MG PO ×3 (08:41→18:15)
[2020-05-28] MEDS: metFORMIN HCL 500 MG TABLET 1000 MG PO (08:43)
[2020-05-28] MEDS: MULTIVITAMINS /C LUTEIN (CENTRUM SILVER) TABLET *BKC 1 TAB PO (08:43)
[2020-05-28] MEDS: METOPROLOL SUCCINATE EXT REL 50 MG TABCR PO (08:44)
[2020-05-28] MEDS: SENNA/DOCUSATE SODIUM TABLET 1 TAB PO (08:44)
[2020-05-28] MEDS: ATORVASTATIN 40 MG TABLET PO (08:48)
[2020-05-28] MEDS: METOPROLOL SUCCINATE EXT REL 100 MG TABCR PO (08:48)
[2020-05-28] MEDS: ENOXAPARIN 30 MG/0.3 ML SYRINGE SUB-Q ×2 (08:48→18:16)
[2020-05-28] MEDS: DULoxetine HCL 60 MG CAPSULE.DR PO (08:49)
[2020-05-28] MEDS: hydroCHLOROthiazide 25 MG TABLET PO (08:49)
[2020-05-28] MEDS: SILVERGEL (ELTA) 45 ML 1 APPLIC TOPICAL (08:49)
[2020-05-28 08:55] LABS: Glucose Point of Care 119 (65-105)
--- NOTE | 2020-05-28 09:42 | PCPTNOTE ---
Spoke w/ Janay MCNEILL. She stated to hold therapy until she's able to talk w/
--- NOTE | 2020-05-28 10:17 | PCOTNOTE ---
Spoke w/ Janay MCNEILL. She stated to hold therapy until she's able to talk w/ due to change in patient medical status
[2020-05-28] MEDS: levETIRAcetam 500MG/NACL 100ML 500 MG/100 ML BAG 400 MG IVPB (10:18)
--- NOTE | 2020-05-28 11:03 | WPDNEUROPN ---
Progress Note: A&P Assessment and Plan (1) Seizure: Code(s): R56.9 - Unspecified convulsions Status: Acute (2) Atrial flutter with rapid ventricular response: Code(s): I48.92 - Unspecified atrial flutter Status: Acute (3) Osteoarthritis: Qualifiers: Osteoarthritis location: unspecified site Osteoarthritis type: unspecified Qualified Code(s): M19.90 - Unspecified osteoarthritis, unspecified site Code(s): M19.90 - Unspecified osteoarthritis, unspecified site Status: Acute Additional Plan neurologically he te is stable will follow along with the physician in case if any change Review of Systems Review of Systems: All systems reviewed & are unremarkable except as noted in HPI and below Exam Narrative: Exam Narrative: examination today reveals him to be awake alert cooperative somewhat nervous and interested in staying in the hospital until he goes back to the [facility] for the follow-up his speech is not dysphasic no dysarthric no dysphoric pupils round regular feels the vision full extraocular is full face symmetrical tongue midline motor examination revealed him to have decreased his friend particular in the lower extremities to sluggish reflexes and downgoing plantar responses Objective Data Vital Signs Vital Signs: Vital Signs - 24 hr 05/27/20 12:00 05/27/20 14:00 05/27/20 16:00 Temperature 36.3 C L 36.5 C Pulse Rate 99 104 H 91 Respiratory Rate 18 18 Blood Pressure 116/60 120/68 Pulse Oximetry 100 100 05/27/20 18:00 05/27/20 19:00 05/27/20 20:00 Temperature 36.8 C Pulse Rate 105 H 96 94 Respiratory Rate 18 18 Blood Pressure 121/72 Pulse Oximetry 97 97 05/27/20 22:00 05/28/20 00:00 05/28/20 02:00 Temperature 35.9 C L Pulse Rate 96 95 90 Respiratory Rate 18 Blood Pressure 113/66 Pulse Oximetry 97 05/28/20 04:00 05/28/20 04:13 05/28/20 06:00 Temperature 36.5 C Pulse Rate 90 90 79 Respiratory Rate 18 Blood Pressure 111/56 L Pulse Oximetry 100 05/28/20 08:00 05/28/20 08:44 05/28/20 08:48 Temperature 36.7 C Pulse Rate 84 79 78 Respiratory Rate 18 Blood Pressure 111/67 Pulse Oximetry 100 Intake/Output Intake/Output: Intake & Output 05/25/20 05/26/20 05/27/20 05/28/20 23:59 23:59 23:59 23:59 Intake Total 1049 800 970 390 Output Total 350 750 100 200 Balance 699 50 870 190 Meds/Results Medications: Active Medications Generic Name Dose Route Start Last Admin Trade Name Freq PRN Reason Stop Dose Admin Acetaminophen 650 mg 05/25/20 13:19 Tylenol Tablet PO Q4H PRN Mild Pain (1-3) or Fever Hydrocodone Bitart/Acetaminophen 2 tab 05/25/20 13:19 05/28/20 08:47 [place] 5-325 Mg PO 2 tab Q4H PRN Administration Pain Rated 4-6 Atorvastatin Calcium 40 mg 05/26/20 09:00 05/28/20 08:48 Lipitor PO 40 mg DAILY CARLITOS Administration Dextrose 12.5 gm 05/25/20 18:30 Dextrose 50% Syringe IV PUSH PRN PRN Hypoglycemia Protocol Duloxetine HCl 60 mg 05/26/20 09:00 05/28/20 08:49 Cymbalta PO 60 mg DAILY CARLITOS Administration Enoxaparin Sodium 30 mg 05/26/20 09:00 05/28/20 08:48 Lovenox SUB-Q 30 mg BID CARLITOS Administration Gabapentin 600 mg 05/26/20 09:00 05/28/20 08:41 Neurontin PO 600 mg TID CARLITOS Administration Glucagon 1 mg 05/25/20 18:30 Glucagon For Inj IM PRN PRN Hypoglycemia Protocol Glucose 15 gm 05/25/20 18:30 Glutose 15 PO PRN PRN Hypoglycemia Protocol Hydrochlorothiazide 25 mg 05/26/20 09:00 05/28/20 08:49 Hydrochlorothiazide PO 25 mg DAILY CARLITOS Administration Dextrose 1,000 mls @ 100 mls/hr 05/25/20 18:30 Dextrose 5% 1,000 Ml IVPB PRN PRN Hypoglycemia Protocol Levetiracetam 500 mg in 100 mls @ 400 mls/hr 05/27/20 21:00 05/28/20 10:18 Keppra Iv IVPB 400 mls/hr Q12HR CARLITOS Administration Insulin Aspart 2 - 5 units
--- NOTE | 2020-05-28 12:30 | PM.PNCARD ---
Progress Note: A&P Assessment and Plan (1) Atrial flutter with rapid ventricular response: Code(s): I48.92 - Unspecified atrial flutter Status: Acute Assessment and Plan: Paroxysmal. Sinus rhythm with first-degree AV block for the most part. Rare episodes of tachycardia. Continue Toprol XL to 150 mg daily. Tolerating thus far Systemic anticoagulation. CHADS2 Vasc score 4. Discontinue enoxaparin and reduce aspirin to 81 mg daily when DOAC is started. Awaiting head CT before starting. Unable to have MRI due to penile implant. Jose of Eliquis and Xarelto was checked. Has not yet met his deductible. Unable to tell him what the jose will be wants his deductible is met. Should be covered while he is in rehab. The other alternative is warfarin. Medical management and rate control strategy advised at this time. Outpatient considerations for more advanced therapy including ablation of atrial flutter. Echo 05/26/2020: 1. Left ventricular systolic function is normal, estimated at 55-60%. 2. There is mildly increased left ventricular wall thickness. 3. The left ventricular diastolic function is grade I diastolic dysfunction. 4. Right ventricular chamber dimension is mildly enlarged. 5. Right ventricular systolic function is normal. 6. Right atrial chamber dimension is mildly enlarged. 7. There is mild aortic valve stenosis with a peak velocity of 185.73 cm/s, mean gradient of 5 mmHg, and aortic valve area of 1.60 cm2. 8. Unable to estimate PA systolic pressure due to poor spectral resolution of tricuspid regurgitant jet velocity. 9. Technically difficult study with limited views despite definity echo contrast enhancement. (2) CAD (coronary artery disease): Qualifiers: Coronary Disease-Associated Artery/Lesion type: [place] artery [place] vs. transplanted heart: [place] heart Associated angina: without angina Qualified Code(s): I25.10 - Atherosclerotic heart disease of [place] coronary artery without angina pectoris Code(s): I25.10 - Atherosclerotic heart disease of [place] coronary artery without angina pectoris Status: Chronic Assessment and Plan: stable, continue current medical therapy. continue statin, beta-huan (3) Hyperlipidemia: Qualifiers: Hyperlipidemia type: unspecified Qualified Code(s): E78.5 - Hyperlipidemia, unspecified Code(s): E78.5 - Hyperlipidemia, unspecified Status: Chronic Assessment and Plan: atorvastatin 40 mg at bedtime. lipid panel as below. (4) DM2 (diabetes mellitus, type 2): Qualifiers: Diabetes mellitus roasterman insulin use: without roasterman use Diabetes mellitus complication status: with other specified complication Qualified Code(s): E11.69 - Type 2 diabetes mellitus with other specified complication Code(s): E11.9 - Type 2 diabetes mellitus without complications Status: Chronic Assessment and Plan: Per primary service Additional Plan Plan discussed with Dr Garcia 05/28/2020 Subjective Date/time seen: 05/28/20 12:30 Interval history: Follow up for: paroxysmal atrial flutter. Date of Service: 05/28/2020. Subjective: Again slightly agitated. Frustrated that he has to answer same questions about pain for everyone who enters the room. He states he always has pain. Denied shortness of breath. Getting ready to eat. Review of Systems Review of Systems: All systems reviewed & are unremarkable except as noted in HPI and below Constitutional: Constitutional: Reports as per HPI, Reports fatigue and Denies headache(s) Eyes: Eyes: Denies blurry vision ENT: Reports Normal hearing present and Denies headache(s) Cardiovascular: Cardiovascular: Denies chest pain, Denies leg edema, Denies lightheadedness, Denies pa
--- NOTE | 2020-05-28 12:38 | PM.IMPN ---
Progress Note: A&P Assessment and Plan (1) Atrial fibrillation with RVR: Code(s): I48.91 - Unspecified atrial fibrillation Status: Acute Assessment and Plan: Toprol XL to 150 mg daily. lovenox and ASA. COVID-19 testing ordered as patient will need this to return to [facility]. Continue to monitor. Discharge [place] tomorrow back to [facility] (2) Hypomagnesemia: Code(s): E83.42 - Hypomagnesemia Status: Acute Assessment and Plan: Magnesium is corrected. (3) CAD (coronary artery disease): Qualifiers: Coronary Disease-Associated Artery/Lesion type: [place] artery [place] vs. transplanted heart: [place] heart Associated angina: without angina Qualified Code(s): I25.10 - Atherosclerotic heart disease of [place] coronary artery without angina pectoris Code(s): I25.10 - Atherosclerotic heart disease of [place] coronary artery without angina pectoris Status: Chronic Assessment and Plan: Known heart disease. Continue home medications (4) DM2 (diabetes mellitus, type 2): Qualifiers: Diabetes mellitus senior living insulin use: without manager terminal use Diabetes mellitus complication status: with other specified complication Qualified Code(s): E11.69 - Type 2 diabetes mellitus with other specified complication Code(s): E11.9 - Type 2 diabetes mellitus without complications Status: Chronic Assessment and Plan: pt is on home metformin. SSI (5) CHF (congestive heart failure): Qualifiers: Heart failure chronicity: unspecified Heart failure type: unspecified Qualified Code(s): I50.9 - Heart failure, unspecified Code(s): I50.9 - Heart failure, unspecified Status: Acute Assessment and Plan: Left ventricular chamber dimension is normal. Left ventricular systolic function is normal, estimated at 55-60%. There is mildly increased left ventricular wall thickness. The left ventricular diastolic function is grade I diastolic dysfunction. (6) Hyperlipidemia: Qualifiers: Hyperlipidemia type: unspecified Qualified Code(s): E78.5 - Hyperlipidemia, unspecified Code(s): E78.5 - Hyperlipidemia, unspecified Status: Chronic Assessment and Plan: Continue atorvastatin. (7) Osteoarthritis: Qualifiers: Osteoarthritis location: unspecified site Osteoarthritis type: unspecified Qualified Code(s): M19.90 - Unspecified osteoarthritis, unspecified site Code(s): M19.90 - Unspecified osteoarthritis, unspecified site Status: Acute Assessment and Plan: No current issue. Will monitor. PT/OT to evaluate and treat. Pt had several back surgeries x4 in april for spinal stenosis Pt is due to go to [facility] on at 430pm to have sutures removed. Spoke to DR MORGAN FLOOR SCRUBBER we need to keep his back wounds clean. pt also has a pressure sore wound management already involved. (8) DVT prophylaxis: Code(s): Z29.9 - Encounter for prophylactic measures, unspecified Status: Acute Assessment and Plan: Lovenox. (9) Seizure: Code(s): R56.9 - Unspecified convulsions Status: Resolved Assessment and Plan: No further seizures Can stop keppra, EEG was negative Subjective Date/time seen: 05/28/20 12:38 Interval history: Patient admitted with atrial fibrillation with RVR which has resolved. Pt had a witness seizure at the bedside yesterday. no further seizures today.EEG is negative can stop iv keppra. Pt has a history of back surgery x4 in april 2020. Other history of DM, CAD and CHF and HLD. Review of Systems Review of Systems: ROS unobtainable: Yes other (generalised weakness, back pain ) Exam Const: General: tired appearing and uncomfortable Nutritional Appearance: well nourished Orientation/consciousness: oriented to person, oriented to place, oriented to time and patient oriented x3 Chest:
[2020-05-28 13:10] LABS: Glucose Point of Care 128 (65-105)
--- NOTE | 2020-05-28 14:20 | PCPTNOTE ---
Juan Jose w/ Janay RN, stated to hold therapy as pt going for CT scan. Will try again tomorrow.
[2020-05-28 16:26] LABS: Glucose Point of Care 147 (65-105)
[2020-05-28 20:42] LABS: Glucose Point of Care 161 (65-105)
[2020-05-29] VITALS (11 sets, daily range): BP systolic 99–121; BP diastolic 60–63; PULSE 65–77; RESP 12–18; TEMP 35.7–36.1; O2SAT 97–98
[2020-05-29] MEDS: GABAPENTIN 300 MG CAPSULE 600 MG PO ×2 (07:42→13:09)
[2020-05-29] MEDS: hydroCHLOROthiazide 25 MG TABLET PO (07:42)
[2020-05-29] MEDS: ATORVASTATIN 40 MG TABLET PO (07:43)
[2020-05-29] MEDS: SENNA/DOCUSATE SODIUM TABLET 1 TAB PO (07:43)
[2020-05-29] MEDS: metFORMIN HCL 500 MG TABLET 1000 MG PO (07:43)
[2020-05-29] MEDS: DULoxetine HCL 60 MG CAPSULE.DR PO (07:43)
[2020-05-29] MEDS: ENOXAPARIN 30 MG/0.3 ML SYRINGE SUB-Q (07:44)
[2020-05-29] MEDS: METOPROLOL SUCCINATE EXT REL 100 MG TABCR PO (07:44)
[2020-05-29] MEDS: MULTIVITAMINS /C LUTEIN (CENTRUM SILVER) TABLET *BKC 1 TAB PO (07:45)
[2020-05-29] MEDS: METOPROLOL SUCCINATE EXT REL 50 MG TABCR PO (07:45)
[2020-05-29] MEDS: polyethylene glycoL 3350 17 GM POWD.PACK PO (07:45)
[2020-05-29] MEDS: SILVERGEL (ELTA) 45 ML 1 APPLIC TOPICAL (07:46)
[2020-05-29 08:39] LABS: Glucose Point of Care 92 (65-105)
[2020-05-29 12:15] LABS: Glucose Point of Care 120 (65-105)
--- NOTE | 2020-05-29 12:27 | PM.DS ---
DS: Admitting Diagnosis Admitting Diagnosis Admitting Diagnosis: A FIB RVR,POST OP PAIN,NEAR SYNCOPE DS: Discharge Diagnosis Discharge Diagnosis (1) Atrial fibrillation with RVR: Code(s): I48.91 - Unspecified atrial fibrillation Status: Resolved Assessment and Plan: Pt has been on Toprol XL to 150 mg daily. lovenox and ASA while in the hospital. COVID-19 test is negative. Pt can be discharged back to [facility] for further rehab. I have stopped lovenox as per cardiology note. Pt did not want the CT of his head. Pt cannot have mRI because he has metal in his body. I started pt on eliquis, for AF. First dose given in the hospital prior to discharge. (2) Hypomagnesemia: Code(s): E83.42 - Hypomagnesemia Status: Acute Assessment and Plan: Magnesium is corrected. (3) CAD (coronary artery disease): Qualifiers: Associated angina: without angina Coronary Disease-Associated Artery/Lesion type: [place] artery [place] vs. transplanted heart: [place] heart Qualified Code(s): I25.10 - Atherosclerotic heart disease of [place] coronary artery without angina pectoris Code(s): I25.10 - Atherosclerotic heart disease of [place] coronary artery without angina pectoris Status: Chronic Assessment and Plan: Known heart disease. Continue home medications (4) DM2 (diabetes mellitus, type 2): Qualifiers: Diabetes mellitus complication status: with other specified complication Diabetes mellitus fpc insulin use: without truck terminal manager use Qualified Code(s): E11.69 - Type 2 diabetes mellitus with other specified complication Code(s): E11.9 - Type 2 diabetes mellitus without complications Status: Chronic Assessment and Plan: pt is on home metformin. SSI (5) CHF (congestive heart failure): Qualifiers: Heart failure chronicity: unspecified Heart failure type: unspecified Qualified Code(s): I50.9 - Heart failure, unspecified Code(s): I50.9 - Heart failure, unspecified Status: Acute Assessment and Plan: Left ventricular chamber dimension is normal. Left ventricular systolic function is normal, estimated at 55-60%. There is mildly increased left ventricular wall thickness. The left ventricular diastolic function is grade I diastolic dysfunction. (6) Hyperlipidemia: Qualifiers: Hyperlipidemia type: unspecified Qualified Code(s): E78.5 - Hyperlipidemia, unspecified Code(s): E78.5 - Hyperlipidemia, unspecified Status: Chronic Assessment and Plan: Continue atorvastatin. (7) Osteoarthritis: Qualifiers: Osteoarthritis location: unspecified site Osteoarthritis type: unspecified Qualified Code(s): M19.90 - Unspecified osteoarthritis, unspecified site Code(s): M19.90 - Unspecified osteoarthritis, unspecified site Status: Acute Assessment and Plan: Pt has history of OA of spine and spinal stenosis. Pt had several back surgeries x4 in april for spinal stenosis Pt is due to go to [facility] on at 430pm to have sutures removed. Spoke to DR EDDIE YARBROUGH we need to keep his back wounds clean. pt also has a pressure sore. Back wound and pressure sore must be kept clean. Due to have sutures removed on MONDAY. (8) DVT prophylaxis: Code(s): Z29.9 - Encounter for prophylactic measures, unspecified Status: Acute Assessment and Plan: Pt is on Lovenox. (9) Seizure: Code(s): R56.9 - Unspecified convulsions Status: Resolved Assessment and Plan: No further seizures, pt did have a seizure witness at the bedside 2 days ago. Pt seen by neurology pt is cleared, does not have seizure disorder. Can stop keppra, EEG was negative. DS: Summary Time Spent with Patient Time attestation: Total time spent providing and/or coordinating discharge services:40 minutes on day of dischrage Exam Narrative
[2020-05-29] MEDS: APIXABAN 5 MG TABLET PO (13:10)
--- NOTE | 2020-05-29 13:29 | PCDIET ---
Nutrition Follow-Up Complete: Nutrition Diagnosis: Increased protein needs related to increased demands for healing as evidenced by stage III ulcer on coccyx. Nutrition Goal: Patient to consume 75% of meals/supplements or greater. Goal in progress. Patient consuming 100% of meals on diabetic diet, but does not care for Kevin. Does not want to try alternate supplement, as he plans to discharge later today. Encouraged patient to focus on protein intake and reviewed dietary protein sources with patient. Last recorded weight is 89.1 kg which is stable. Bowel Motility: No documented BM. Labs Reviewed: Glu (120) Meds Noted: [place], Hydrochlorothiazide, Novolog, Glucophage, MVI/minerals, Miralax, Senna Additional Notes: No change in skin documented. Stage III ulcer to coccyx. Agree with above diet/plan. Will continue to monitor with same goal if patient remains in house. Nutrition Monitoring and Evaluation: Follow up in 5 days.
== END 2020-05-29 16:11 | DRG 308 ==
LOC: ANHED 12:19 → ANHIMU 13:58
PROVIDERS: Hospitalist; Nurse Practitioner; Nurse Practitioner Adult Health; Admitting Provider Family Medicine; Emergency Provider Emergency Medicine; PCP Physician Assistant; Visit Provider Family Medicine
DX: I48.91 Unspecified atrial fibrillation (principal); I50.33 Acute on chronic diastolic (congestive) heart failure; I11.0 Hypertensive heart disease with heart failure; I25.10 Atherosclerotic heart disease of native coronary artery without angina pectoris; Z95.5 Presence of coronary angioplasty implant and graft; Z96.651 Presence of right artificial knee joint; E11.9 Type 2 diabetes mellitus without complications; E78.5 Hyperlipidemia, unspecified; M19.90 Unspecified osteoarthritis, unspecified site; Z87.891 Personal history of nicotine dependence; Z20.828 Contact with and (suspected) exposure to other viral communicable diseases; I48.92 Unspecified atrial flutter; E83.42 Hypomagnesemia; R56.9 Unspecified convulsions; G89.18 Other acute postprocedural pain
CPT/HCPCS: 36415; 70450; 71045; 80048; 80053; 80061; 82728; 83735; 83880; 84443; 84484; 85025; 87635; 93005; 95816; 96361; 96365; 96366; 96372; 96375; 96376; 97161; 97165; 97530; 99285; A9270; C8929; C9803; G0378; J1650; J1953; J2270; J2765; J3475; J7030; Q9957; U0003

== ENCOUNTER 2020-08-04 20:12 | Emergency (ER) | payer MEDICARE, OTHER, SELFPAY ==
--- NOTE | ~2020-08-04 | XR_ITS ---
XR knee RT 3V, XR knee LT 3V 08/04/2020 22:29 Indication: Knee pain with swelling. Right knee wound Procedure: 3 views each knee Comparison: No prior studies for comparison. Findings: There is a right total knee arthroplasty. Prosthesis well seated. No acute fracture or trau matic malalignment. No right effusion. There is mild tricompartment osteoarthritis of the left knee. Small effusion. There is atherosclerotic change, left greater than right. There is mild prepatellar s oft tissue swelling. Impression: 1: No acute fracture. 2: Small effusions. Reviewed, dictated and finalized at location A. Impression: 1: No acute fracture. 2: Small effusions. Impression: 1: No acute fracture. 2: Small effusions.
[2020-08-04 20:21] VITALS: BP 154/85; PULSE 92; RESP 16; TEMP 36.3; O2SAT 100
--- NOTE | 2020-08-04 21:05 | ED.WOUNDLAC ---
HPI - Wound/Laceration General Chief Complaint: Wound/Laceration Stated Complaint: swollen painful feet Time Seen by Provider: 08/04/20 21:03 Source: patient and EMS Mode of arrival: EMS Limitations: no limitations History of Present Illness HPI narrative: Patient is a 74-year-old male with a history of congestive heart failure, atrial fibrillation on Eliquis, type 2 diabetes, history of spinal stenosis with 3 back surgeries in April, who presents for evaluation of wounds to bilateral lower extremities. Patient reports increasing redness over the wound on his right knee. He reports aching right heel pain. Patient denies scratching or itching. He reports that wounds have been there for quite some time. He states that he lives at home with care facility, was supposed to be scheduled to go home this week, but his ex- wanted him to get checked out for the redness and pain in the wounds. He also reports some mild lower extremity swelling. He denies any fever, chest pain, cough or shortness of breath. He reports history of cellulitis and skin infection in the past. Patient currently not taking any antibiotics. He denies recent fall or injury. When questioned how he obtained these wounds which I noticed are on his scalp, hands, thighs and legs, he states that he is unsure. Patient is mostly wheelchair-bound. Related Data Home Medications Medication Instructions Recorded Confirmed Adults Multivitamin 1 tablet PO DAILY 05/25/20 05/25/20 Tylenol Extra Strength 1,000 mg PO Q6H PRN 05/25/20 05/25/20 atorvastatin 40 mg PO DAILY 05/25/20 05/25/20 duloxetine 60 mg PO DAILY 05/25/20 05/25/20 gabapentin 600 mg PO TID 05/25/20 05/25/20 hydrochlorothiazide 25 mg PO DAILY 05/25/20 05/25/20 lidocaine [Lidoderm] 1 patch TOPICAL DAILY 05/25/20 05/25/20 metformin 1,000 mg PO DAILY 05/25/20 05/25/20 metoprolol succinate 50 mg PO DAILY 05/25/20 05/25/20 polyethylene glycol 3350 [Miralax] 17 g PO DAILY 05/25/20 05/25/20 sennosides-docusate sodium [Senna 1 tablet PO BID 05/25/20 05/25/20 with Docusate Sodium] Allergies Allergy/AdvReac Type Severity Reaction Status Date / Time No Known Allergies Allergy Mild Verified 05/25/20 17:45 Review of Systems Review of Systems: Narrative: CONSTITUTIONAL: Denies fever, chills, or sweats. EYES: Denies visual changes, redness, or discharge. ENT: Denies rhinorrhea, congestion, sore throat, or otalgia. CARDIOVASCULAR: Denies chest pain, palpitations, or edema. RESPIRATORY: Denies cough or dyspnea. GASTROINTESTINAL: Denies abdominal pain, nausea, vomiting, or diarrhea. GENITOURINARY: Denies dysuria or hematuria. SKIN: Reports rash, wounds to bilateral lower extremities, redness to right knee MUSCULOSKELETAL: Denies back pain, joint pain, or myalgia. NEUROLOGIC: Denies headache, numbness, or weakness. [facility] Past Medical History Medical History (Updated 08/04/20 @ 23:25 by Moriah Méndze MD) Aftercare following right shoulder joint replacement surgery Atrial fibrillation with RVR CAD (coronary artery disease) DM2 (diabetes mellitus, type 2) [id number] Hyperlipidemia Osteoarthritis Surgical History Surgical History H/O carotid endarterectomy bilat with focal cord injury H/O heart artery stent 2 cardiac stents 0 9 at [facility] History of back surgery for different area is for his back surgery. 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 His had a 3rd right total knee replacement in the s. Family History Family History Mother Cancer Father Cancer Hypertension Cerebrovascular accident Sibling Diabetes mellitus Social History Social History Social History: the patient desires to be a full code. He has 2 children a son and a daughter. His son
[2020-08-04 22:05] VITALS: BP 148/82; PULSE 87; RESP 16; O2SAT 96
[2020-08-04] MEDS: oxyCODONE/ACETAMINOPHEN (*CRX) 5-325 MG TABLET 1 TABLET PO (22:06)
[2020-08-04 22:36] VITALS: TEMP 36.3
[2020-08-04 22:42] LABS: Basophils Absolute Auto 0.1 K/mm3 (0.0-0.1); Basophils Percent Auto 0.8 % (0.2-1.2); Eosinophils Absolute Auto 0.1 K/mm3 (0-0.3); Eosinophils Percent Auto 1.6 % (0-4.4); Hematocrit 30.1 % (42.0-52.0); Hemoglobin 9.7 g/dL (14.0-18.0); Immature Granulocyte Absolute 0.04 K/mm3 (0.00-0.031); Immature Granulocyte Percent A 0.5 % (0-0.5); Lymphocytes Absolute Auto 1.12 K/mm3 (0.9-3.2); Lymphocytes Percent Auto 15.3 % (18.3-44.2); Mean Corpuscular HGB Conc 32.2 g/dl (32-36); Mean Corpuscular Volume 90.1 fl (80-100); Monocytes Absolute Auto 0.8 K/mm3 (0.1-0.6); Monocytes Percent Auto 10.9 % (2.6-8.5); Neutrophils Absolute Auto 5.2 K/mm3 (1.3-6.7); Neutrophils Percent Auto 70.9 % (45.5-73.1); Platelet Count Result 241 k/mm3 (150-375); Red Blood Count 3.34 M/mm3 (4.6-6.20); Red Cell Distribution Width 14.6 % (11.5-14.5); White Blood Count 7.3 K/mm3 (4.5-10.0)
[2020-08-04 23:10] LABS: Erythrocyte Sedimentation Rate 90 mm/hr (0-20)
[2020-08-04 23:19] LABS: Anion Gap 7 mmol/L (8-16); Blood Urea Nitrogen 28 mg/dL (9-20); CRP 3.6 mg/dL (<1.0); Calcium 8.8 mg/dL (8.4-10.2); Carbon Dioxide 24 mmol/L (22-30); Chloride 106 mmol/L (98-107); Estimated Glomerular Filt Rate > 60; Glucose 128 mg/dL (75-110); Potassium 3.8 mmol/L (3.4-5.0); Sodium 137 mmol/L (137-145)
[2020-08-04 23:24] LABS: NT Pro B Type Natriuretic Pept 1020 PG/ML (5-100)
[2020-08-05] VITALS: BP 156/78; PULSE 89; RESP 16; O2SAT 99
[2020-08-05] MEDS: CLINDAMYCIN HCL 150 MG CAP 300 MG PO (00:34)
--- NOTE | 2020-08-05 01:10 | PC.NURSE ---
Patient states he is trying to contact his neighbor for a ride home.
--- NOTE | 2020-08-05 01:39 | PC.NURSE ---
Patient states the only way he can get home and into his house is by his neighbor Goran. Patient states Goran wakes up at 0330 for work. ED charge nurse Coleen notified. Per Coleen, patient can stay in room at this time.
[2020-08-05 01:45] VITALS: BP 139/70; PULSE 83; RESP 16; O2SAT 97
[2020-08-05 03:40] VITALS: BP 139/63; PULSE 83; RESP 16; TEMP 36.7; O2SAT 100
[2020-08-05 04:57] VITALS: BP 139/69; PULSE 76; RESP 16; TEMP 36.7; O2SAT 97
== END 2020-08-05 04:59 | disposition home or self-care (01) ==
PROVIDERS: Emergency Provider Emergency Medicine; PCP Physician Assistant
DX: L98.8 Other specified disorders of the skin and subcutaneous tissue (principal); L03.115 Cellulitis of right lower limb; I50.9 Heart failure, unspecified; I48.91 Unspecified atrial fibrillation; Z79.01 Long term (current) use of anticoagulants; E11.9 Type 2 diabetes mellitus without complications; Z79.84 Long term (current) use of oral hypoglycemic drugs; I25.10 Atherosclerotic heart disease of native coronary artery without angina pectoris; E78.5 Hyperlipidemia, unspecified; M19.90 Unspecified osteoarthritis, unspecified site; Z95.5 Presence of coronary angioplasty implant and graft; Z96.651 Presence of right artificial knee joint
CPT/HCPCS: 36415; 73562; 80048; 83880; 85025; 85652; 86140; 99284; A9270

== ENCOUNTER → 2020-08-20 13:51 | Outpatient (CLI) | payer MEDICARE, OTHER, SELFPAY ==
--- NOTE | ~2020-08-20 | XR_ITS ---
EXAMINATION: XR chest 2V DATE: 08/20/2020 14:16 INDICATION: Cough. TECHNIQUE: Frontal and lateral views of the chest were obtained. COMPARISON: Chest single view 05/25/2020 FINDINGS: There is chronic mild elevation of right hemidiaphragm. The chest demonstrates clear lungs without pneumonia, pleural effusion, or pneumothorax. The heart size is normal. There are changes of posterior fusion procedure in thoracolumbar spine. There is a filter in the inferior vena cava. There are suture anchors in right humeral head. IMPRESSION: 1. No acute cardiopulmonary disease. Reviewed, dictated and finalized at location B. E DIGGER
== END ==
PROVIDERS: PCP Physician Assistant; Visit Provider Family Medicine
DX: R05 Cough (principal)
CPT/HCPCS: 71046

== ENCOUNTER 2021-03-30 11:14 | Emergency (ER) | payer MEDICARE, OTHER, SELFPAY ==
[2021-03-30 11:17] VITALS: BP 140/97; PULSE 101; RESP 12; TEMP 36; O2SAT 99
--- NOTE | 2021-03-30 11:21 | ECG_ITS ---
Measurements Intervals [place] Rate: 101 P: TN: 0 QRS: -62 QRSD: 163 T: -5 QT: 422 QTc: 549 Interpretive Statements SINUS TACHYCARDIA WITH FIRST DEGREE AV BLOCK VENTRICULAR COUPLET, VENTRICULAR PREMATURE COMPLEX AND FREQUENT ATRIAL PREMATURE COMPLEXES LEFT AXIS DEVIATION RIGHT BUNDLE BRANCH BLOCK INFERIOR INFARCT, AGE INDETERMINATE BASELINE ARTIFACT- I, II, III, AVR, AVL, AVF, V2-V6 ABNORMAL ECG Electronically Signed On 03-30-2021 11:26:22 CDT by Ronny Elizondo D.O.
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
[2021-03-30] MEDS: SODIUM CHLORIDE 0.9% IV 500 ML 999 ML IV CONT (11:54)
[2021-03-30 12:10] VITALS: PULSE 101
[2021-03-30 12:17] LABS: Basophils Percent Auto 0.4 % (0.2-1.2); Eosinophils Absolute Auto 0.1 K/mm3 (0-0.3); Eosinophils Percent Auto 0.4 % (0-4.4); Hematocrit 42.6 % (42.0-52.0); Hemoglobin 13.4 g/dL (14.0-18.0); Immature Granulocyte Absolute 0.04 K/mm3 (0.00-0.031); Immature Granulocyte Percent A 0.4 % (0-0.5); Lymphocytes Absolute Auto 1.05 K/mm3 (0.9-3.2); Lymphocytes Percent Auto 9.4 % (18.3-44.2); Mean Corpuscular HGB Conc 31.5 g/dl (32-36); Mean Corpuscular Hemoglobin 28.5 pg (26-34); Mean Corpuscular Volume 90.4 fl (80-100); Mean Platelet Volume 10.6 fl (7.4-10.4); Monocytes Absolute Auto 0.8 K/mm3 (0.1-0.6); Monocytes Percent Auto 7.3 % (2.6-8.5); Neutrophils Absolute Auto 9.2 K/mm3 (1.3-6.7); Neutrophils Percent Auto 82.1 % (45.5-73.1); Platelet Count Result 225 k/mm3 (150-375); Red Blood Count 4.71 M/mm3 (4.6-6.20); Red Cell Distribution Width 14.5 % (11.5-14.5); White Blood Count 11.2 K/mm3 (4.5-10.0)
[2021-03-30 12:30] LABS: Anion Gap 10 mmol/L (8-16); Blood Urea Nitrogen 19 mg/dL (9-20); Calcium 9.5 mg/dL (8.4-10.2); Carbon Dioxide 27 mmol/L (22-30); Chloride 105 mmol/L (98-107); Estimated CRCL calculation 56 ml/min; Estimated Glomerular Filt Rate > 60; Glucose 173 mg/dL (75-110); Partial Thromboplastin Time 27.4 SECONDS (22.3-36.8); Potassium 4.6 mmol/L (3.4-5.0); Sodium 142 mmol/L (137-145)
--- NOTE | 2021-03-30 12:54 | PC.NURSE ---
pt with medications at the bedside requesting to take because he has not taken them yesterday or today. EDP Jennie aware and verbalized okay to take to them.
[2021-03-30 13:25] VITALS: BP 155/105; PULSE 104; RESP 20; O2SAT 100
--- NOTE | 2021-03-30 13:40 | PC.NURSE ---
patient walked with walker and one assist without difficulty. patient states that he feels woozy and would like to have some food due to not eating dinner last night or breakfast today. Tray ordered for patient at this time.
[2021-03-30 14:32] VITALS: BP 108/78; PULSE 107; RESP 12; O2SAT 100
--- NOTE | 2021-03-30 14:59 | PC.NURSE ---
called lulu [phone] and left message that jax is ready
[2021-03-30 16:03] VITALS: BP 108/78; PULSE 104; RESP 20; O2SAT 100
== END 2021-03-30 16:07 | disposition home or self-care (01) ==
PROVIDERS: Emergency Provider Emergency Medicine; PCP Physician Assistant
DX: R55 Syncope and collapse (principal); R29.6 Repeated falls; Z98.1 Arthrodesis status; I25.10 Atherosclerotic heart disease of native coronary artery without angina pectoris; I48.91 Unspecified atrial fibrillation; E11.9 Type 2 diabetes mellitus without complications; E78.5 Hyperlipidemia, unspecified; M19.90 Unspecified osteoarthritis, unspecified site; Z79.84 Long term (current) use of oral hypoglycemic drugs; R00.0 Tachycardia, unspecified; I44.0 Atrioventricular block, first degree; I49.1 Atrial premature depolarization; I49.3 Ventricular premature depolarization; R00.8 Other abnormalities of heart beat; I45.10 Unspecified right bundle-branch block; R94.31 Abnormal electrocardiogram [ECG] [EKG]
CPT/HCPCS: 36415; 80048; 85025; 85610; 85730; 93005; 96360; 99283; J7040

== ENCOUNTER 2021-06-13 19:25 | Inpatient (IN) | payer MEDICARE, OTHER, SELFPAY ==
--- NOTE | ~2021-06-13 | CT_ITS ---
EXAMINATION: CT brain wo con DATE: 06/13/2021 20:00 INDICATION: Head injury. TECHNIQUE: Computed tomography (CT) of the head was performed without intravenous contrast. The mA wa s adjusted according to patient size. Iterative reconstruction technique was employed. The dose-lengt h product was 605.33 mGy-cm. COMPARISON: None FINDINGS: There are scattered areas of low attenuation in the cerebral white matter. There is no intr acranial hemorrhage, acute infarction, or abnormal intracranial mass lesion. The ventricles are bret l in size. There are likely changes of ocular lens replacement surgeries. There is left frontal scalp soft tissue swelling. There is mild mucosal thickening in the ethmoid sinuses. The mastoid air cells are normal. There is a left posterior scalp defect. IMPRESSION: 1. Mild nonspecific cerebral white matter disease, which likely represents chronic small vessel ische jodie disease. Reviewed, dictated and finalized at location A. IMPRESSION: 1. 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
--- NOTE | ~2021-06-13 | CT_ITS ---
EXAMINATION: CT cervical spine wo con DATE: 06/13/2021 20:00 INDICATION: Head injury. TECHNIQUE: Computed tomography (CT) of the cervical spine was performed without intravenous contrast. Automated exposure control and iterative reconstruction technique were employed. The dose-length pro duct was 448.80 mGy-cm. COMPARISON: Neck CTA 02/03/2009 FINDINGS: There is kyphosis of cervical spine. There is 5 degrees levocurvature of upper cervical spi ne. There is 2 mm anterolisthesis of C3 on C4 and 2 mm retrolisthesis of C5 and C6 and C6 on C7. Ther e are changes of posterior fusion procedure at C1-C2 with instrumentation. There are changes of left- sided laminectomies from C4 to C6 with instrumentation. There are changes of C1 and C3 laminectomies. There is mildly decreased disc height at C3-C4 and severely decreased disc height from C4-C5 through C7-T1. There is interbody fusion at C4-C5 and C5-C6. The following disc levels are specifically disc ussed: C2-C3: There is mild bilateral uncovertebral joint osteoarthritis. There is severe bilateral facet debbie int osteoarthritis. There is mild right and moderate left neural foraminal stenosis. There is no cent ral canal stenosis. C3-C4: There is severe right and mild left uncovertebral joint osteoarthritis. There is severe right and moderate left facet joint osteoarthritis. There is moderate bilateral neural foraminal stenosis. There is no central canal stenosis. C4-C5: There is mild right and severe left uncovertebral joint hypertrophy. There is mild right facet joint hypertrophy. There is mild bilateral neural foraminal stenosis. There is decompression of the left neural foramen posteriorly. There is mild central canal stenosis with posterior decompression. C5-C6: There is severe bilateral uncovertebral joint hypertrophy. There is mild bilateral facet joint osteoarthritis. There is mild bilateral neural foraminal stenosis. There is mild central canal steno sis with posterior decompression. C6-C7: There is severe bilateral uncovertebral joint osteoarthritis. There is moderate bilateral face t joint osteoarthritis. There is mild bilateral neural foraminal stenosis. There is mild central nils l stenosis with posterior decompression. C7-T1: There is mild right and severe left uncovertebral joint hypertrophy. There is mild bilateral f acet joint osteoarthritis. There is mild left neural foraminal stenosis. There is mild central canal stenosis. IMPRESSION: 1. No fracture. 2. Severe cervical spondylosis. 3. Posterior fusion procedure at C1-C2. Reviewed, dictated and finalized at location A.
--- NOTE | ~2021-06-13 | XR_ITS ---
EXAMINATION: XR knee LT min 4V DATE: 06/13/2021 20:09 INDICATION: Left knee pain. Fall. TECHNIQUE: 4 views of left knee were obtained. COMPARISON: Left knee radiographs 08/04/2020 FINDINGS: Bone alignment is normal. No fracture. There is mild osteoarthritis of medial and lateral c ompartments and moderate osteoarthritis of patellofemoral compartment. There is chondrocalcinosis of the menisci. There is a small knee joint effusion. There is prepatellar soft tissue swelling. IMPRESSION: 1. Moderate left knee osteoarthritis. 2. Small left knee joint effusion. Reviewed, dictated and finalized at location A.
--- NOTE | ~2021-06-13 | XR_ITS ---
EXAMINATION: XR chest 1V portable DATE: 06/13/2021 19:45 INDICATION: Syncope. TECHNIQUE: A single frontal view of the chest was obtained. COMPARISON: Chest 2 views 08/20/2020 FINDINGS: There is chronic elevation of right hemidiaphragm. No pneumonia, pleural effusion, or pneum othorax. The heart size is normal. There are changes of posterior fusion procedure in thoracic and amelia mbar spine. There are suture anchors in right humeral head. IMPRESSION: 1. No acute cardiopulmonary disease. Reviewed, dictated and finalized at location A.
[2021-06-13 19:23] VITALS: BP 167/122; PULSE 146; RESP 26; TEMP 36.7; O2SAT 100
--- NOTE | 2021-06-13 19:24 | ECG_ITS ---
Measurements Intervals [place] Rate: 140 P: [place]: 0 QRS: -14 QRSD: 178 T: 3 QT: 341 QTc: 521 Interpretive Statements ATRIAL FLUTTER/TACHYCARDIA WITH RAPID VENTRICULAR RESPONSE VENTRICULAR PREMATURE COMPLEXES RIGHT BUNDLE BRANCH BLOCK INFERIOR INFARCT, AGE INDETERMINATE BASELINE ARTIFACT- I, II, III, AVR, AVL, AVF ABNORMAL ECG Electronically Signed On 06-14-2021 7:50:40 CDT by Ronny Elizondo D.O.
[2021-06-13 19:35] VITALS: PULSE 143
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
[2021-06-13] MEDS: dilTIAZem HCl INJ 25 MG/5 ML VIAL 5 MG IV PUSH (19:43)
[2021-06-13 19:45] VITALS: BP 167/122; PULSE 147
--- NOTE | 2021-06-13 19:45 | PC.NURSE ---
pt. to ct.
[2021-06-13 19:47] LABS: Basophils Absolute Auto 0.1 K/mm3 (0.0-0.1); Basophils Percent Auto 0.4 % (0.2-1.2); Eosinophils Absolute Auto 0.1 K/mm3 (0-0.3); Eosinophils Percent Auto 0.4 % (0-4.4); Hematocrit 43.2 % (42.0-52.0); Immature Granulocyte Absolute 0.05 K/mm3 (0.00-0.031); Immature Granulocyte Percent A 0.4 % (0-0.5); Lymphocytes Absolute Auto 1.01 K/mm3 (0.9-3.2); Lymphocytes Percent Auto 7.3 % (18.3-44.2); Mean Corpuscular HGB Conc 32.4 g/dl (32-36); Mean Corpuscular Hemoglobin 29.5 pg (26-34); Mean Corpuscular Volume 90.9 fl (80-100); Mean Platelet Volume 10.3 fl (7.4-10.4); Monocytes Absolute Auto 1.4 K/mm3 (0.1-0.6); Monocytes Percent Auto 9.9 % (2.6-8.5); Neutrophils Absolute Auto 11.3 K/mm3 (1.3-6.7); Neutrophils Percent Auto 81.6 % (45.5-73.1); Platelet Count Result 250 k/mm3 (150-375); Red Blood Count 4.75 M/mm3 (4.6-6.20); Red Cell Distribution Width 14.2 % (11.5-14.5); White Blood Count 13.8 K/mm3 (4.5-10.0)
[2021-06-13 19:52] LABS: Prothrombin Time 13.3 Seconds (11.1-14.7)
[2021-06-13 19:53] LABS: Partial Thromboplastin Time 32.9 SECONDS (22.3-36.8)
[2021-06-13 20:01] LABS: Alanine Aminotransferase 28 U/L (4-50); Albumin Level 4.1 g/dL (3.5-5.1); Alkaline Phosphatase 90 U/L (38-126); Anion Gap 11 mmol/L (8-16); Aspartate Amino Transferase 74 U/L (17-59); Bilirubin,Total 2.2 mg/dL (0.2-1.3); Blood Urea Nitrogen 36 mg/dL (9-20); Calcium 9.4 mg/dL (8.4-10.2); Carbon Dioxide 23 mmol/L (22-30); Chloride 103 mmol/L (98-107); Estimated Glomerular Filt Rate 54; Glucose 167 mg/dL (65-110); Potassium 3.8 mmol/L (3.4-5.0); Sodium 137 mmol/L (137-145)
[2021-06-13] MEDS: SODIUM CHLORIDE 0.9% IV 1,000 ML 999 ML IV CONT ×2 (20:17→22:08)
[2021-06-13 20:21] VITALS: BP 102/56; PULSE 138; RESP 17; O2SAT 99
[2021-06-13 20:23] LABS: Creatine Kinase 1047 U/L (55-170)
[2021-06-13 20:24] LABS: Ethanol < 10 mg/dL (<10)
[2021-06-13 20:26] LABS: Magnesium 1.8 mg/dL (1.6-2.3)
[2021-06-13 20:39] LABS: NT Pro B Type Natriuretic Pept 2100 pg/mL (5-100)
[2021-06-13 20:54] LABS: Add Urine Microscopic? YES; Appearance Urine Clear (Clear); Bacteria Urine Trace /hpf; Bilirubin Urine Negative (Negative); Blood Urine 1+ (Negative); Color Urine Amber (Yellow); Glucose Urine UA Negative (Negative); Ketones Urine Trace mg/dL (Negative); Leukocyte Esterase Ur Negative LEU/UL (Negative); Mucus Urine Moderate /lpf; Nitrate Urine Negative (Negative); Protein Urine 3+ mg/dL (Negative); RBC Urine 0-2 /hpf (0-2); Specific Grav Ur 1.029 (1.001-1.035); Squamous Epithelial Cell Urine Occasional /hpf (Few); Urobilinogen Urine Negative mg/dL (<2.0); WBC Urine 0-3 /hpf
[2021-06-13] MEDS: APIXABAN 5 MG TABLET PO (22:21)
[2021-06-13 22:34] VITALS: BP 140/74; PULSE 102; RESP 20; O2SAT 100
--- NOTE | 2021-06-13 22:54 | PC.NURSE ---
spoke w/ Claudia pt. sister for update [phone]
[2021-06-13 23:05] VITALS: BP 130/81; PULSE 103; RESP 20; TEMP 36.2; O2SAT 100; BMI 28.4
--- NOTE | 2021-06-13 23:06 | PC.NURSE ---
This patient, Ayo Judge, was admitted to IMU Room 203-01 on 06/13/21 at 2306. Patient/family oriented to hospital policies and general routines including ID bracelet, bed and alarms, visiting hours, pain management, procedures, bathroom and other care routines, personal items, smoking policy, room service/diet, and visiting hours. Information on how to activate the Rapid Response Team has been discussed. Patient/Family are encouraged to report perceived risks to care and to ask questions if they do not understand what they are told or what they should do.
[2021-06-13 23:39] VITALS: BMI 28.4
[2021-06-14] VITALS (18 sets, daily range): BP systolic 92–126; BP diastolic 40–86; PULSE 76–98; RESP 12–20; TEMP 36.4–36.9; O2SAT 97–100
--- NOTE | 2021-06-14 00:21 | ECG_ITS ---
Measurements Intervals [place] Rate: 95 P: -35 [place]: 301 QRS: -21 QRSD: 193 T: 16 QT: 467 QTc: 589 Interpretive Statements SINUS RHYTHM WITH FIRST DEGREE AV BLOCK RIGHT BUNDLE BRANCH BLOCK INFERIOR INFARCT, AGE INDETERMINATE BASELINE ARTIFACT- I, II, III, AVR, AVL, AVF, V1-V6 ABNORMAL ECG Electronically Signed On 06-14-2021 17:06:34 CDT by Ronny Elizondo D.O.
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
[2021-06-14 03:11] LABS: Troponin I 0.598 ng/mL (0.000-0.034)
[2021-06-14] MEDS: ASPIRIN 81 MG CHEWABLE TABLET 324 MG PO (04:35)
[2021-06-14 05:32] LABS: Basophils Percent Auto 0.2 % (0.2-1.2); Eosinophils Absolute Auto 0.2 K/mm3 (0-0.3); Eosinophils Percent Auto 1.6 % (0-4.4); Hematocrit 36.3 % (42.0-52.0); Hemoglobin 11.8 g/dL (14.0-18.0); Immature Granulocyte Absolute 0.03 K/mm3 (0.00-0.031); Immature Granulocyte Percent A 0.3 % (0-0.5); Lymphocytes Absolute Auto 1.29 K/mm3 (0.9-3.2); Lymphocytes Percent Auto 13.5 % (18.3-44.2); Mean Corpuscular HGB Conc 32.5 g/dl (32-36); Mean Corpuscular Hemoglobin 29.5 pg (26-34); Mean Corpuscular Volume 90.8 fl (80-100); Mean Platelet Volume 10.5 fl (7.4-10.4); Neutrophils Absolute Auto 7.1 K/mm3 (1.3-6.7); Neutrophils Percent Auto 74.4 % (45.5-73.1); Platelet Count Result 203 k/mm3 (150-375); Red Cell Distribution Width 14.1 % (11.5-14.5); White Blood Count 9.5 K/mm3 (4.5-10.0)
[2021-06-14 05:47] LABS: Alanine Aminotransferase 23 U/L (4-50); Albumin Level 3.2 g/dL (3.5-5.1); Alkaline Phosphatase 70 U/L (38-126); Anion Gap 7 mmol/L (8-16); Aspartate Amino Transferase 64 U/L (17-59); Bilirubin,Total 1.5 mg/dL (0.2-1.3); Blood Urea Nitrogen 34 mg/dL (9-20); Calcium 8.2 mg/dL (8.4-10.2); Carbon Dioxide 22 mmol/L (22-30); Chloride 109 mmol/L (98-107); Estimated CRCL calculation 60 ml/min; Estimated Glomerular Filt Rate > 60; Glucose 169 mg/dL (65-110); Potassium 3.7 mmol/L (3.4-5.0); Sodium 138 mmol/L (137-145)
[2021-06-14 08:19] LABS: Glucose Point of Care 145 mg/dl (65-105)
[2021-06-14] MEDS: METOPROLOL SUCCINATE EXT REL 50 MG TABCR PO (08:29)
[2021-06-14] MEDS: DULoxetine HCL 60 MG CAPSULE.DR PO (08:29)
[2021-06-14] MEDS: INSULIN ASPART (*BKC) 100 UNITS/ML SUB-Q ×3 (08:29→18:01)
[2021-06-14] MEDS: GABAPENTIN 300 MG CAPSULE 600 MG PO ×3 (08:29→18:02)
[2021-06-14] MEDS: ATORVASTATIN 40 MG TABLET PO (08:30)
[2021-06-14] MEDS: APIXABAN 5 MG TABLET PO (08:30)
[2021-06-14] MEDS: hydroCHLOROthiazide 25 MG TABLET PO (08:30)
[2021-06-14] MEDS: ASPIRIN 81 MG CHEWABLE TABLET PO (08:30)
--- NOTE | 2021-06-14 08:46 | PM.CNCAR ---
Assessment and Plan Assessment and plan (1) Paroxysmal atrial flutter: Code(s): I48.92 - Unspecified atrial flutter Status: Acute Assessment and Plan: History of paroxysmal atrial flutter. Patient stopped taking his medications and was admitted with a flutter RVR. Converted to sinus rhythm on Cardizem. Will change IV Cardizem back to low dose p.o. metoprolol; may need amiodarone instead, if not able to tolerate metoprolol 2nd orthostasis, though he has mildly elevated LFTs at this time. CHeck LFTs in a.m. In view of his multiple falls and head contusions I think it is best not to continue anticoagulation. DC Eliquis. Use ASA for CAD. (2) Elevated troponin: Code(s): R77.8 - Other specified abnormalities of plasma proteins Status: Acute Assessment and Plan: Patient does have a mildly elevated troponin but no ischemic changes and apparently no chest pain. Doubt ACS. No ischemic workup needed. (3) Syncope: Code(s): R55 - Syncope and collapse Status: Acute Assessment and Plan: Multiple episodes of syncope versus falls. Documented hypotension by EMS, and history of orthostasis documented in the office, suggest that orthostatis may be the etiology tather than arrhythmias. Telemetry shows some PVCs but no pauses or sustained ventricular tachycardia. Echo at [facility] showed mild LV dysfunction, EF 45-50%. (Will cancel echo here since this was done in May. ) Carotid ultrasound at [facility] did not show any significant stenosis. Agree with hydration Will need to check orthostatics. Will need Ph Tx to evaluate for gait disturbance. If patient cannot tolerate metoprolol secondary to orthostasis, then may need to use amiodarone to control PAFlutter.. Avoid diuretics; DC HCTZ. (4) Confusion: Code(s): R41.0 - Disorientation, unspecified Status: Acute Assessment and Plan: Patient appears to have some dementia. Likely will need to move to some type of assisted living. (5) CAD (coronary artery disease): Qualifiers: Coronary Disease-Associated Artery/Lesion type: [place] artery [place] vs. transplanted heart: [place] heart Associated angina: without angina Qualified Code(s): I25.10 - Atherosclerotic heart disease of [place] coronary artery without angina pectoris Code(s): I25.10 - Atherosclerotic heart disease of [place] coronary artery without angina pectoris Status: Chronic Assessment and Plan: History of CAD and Left anterior descending stent, stable. History of Present Illness History of Present Illness Consult date/time: 06/14/21 08:46 Reason For Visit: A Fib w/RVR,Rhabdomyolysis,Syncope,Elevated Tropon Narrative: Date of service 06/14/2021: Mr. Ayo Judge is a 75-year-old white male whom I was asked to see at the request of hospitalist for my advice and in consultation. Troponins and recurrent falls versus syncope. He is followed by Dr. Acosta for history of CAD and atrial fibrillation. He has had multiple episodes of syncope versus falls over the last year. The patient was hospitalized at [facility] in [place] in early May for falls versus syncope. His echo showed EF of 45-50% with mild LVH, mild right ventricular enlargement. Carotid ultrasound showed no significant stenosis. An event monitor was placed. He was seen in our office 06/04/2021 reporting several falls and syncopal episodes since his last visit with a couple hospitalizations for this. He was advised not to drive until a cause could be found. He admitted to some medication noncompliance. He was orthostatic in the office but was not high orthostatic in the hospital. He was advised to discontinue the hydrochlorothiazide and we were going to follow-up on the event monitor. The patie
--- NOTE | 2021-06-14 10:01 | PM.IMPN ---
Progress Note: A&P Assessment and Plan (1) Atrial fibrillation with rapid ventricular response: Code(s): I48.91 - Unspecified atrial fibrillation Status: Acute Assessment and Plan: Patient with AFib/RVR on admission. He converted and follo up WKG showing NSR. Review of tele showing he is maintaining NSR. He is noncompliant with his medications related to his mental status. Continue Metoprolol home dose. Moniotr on tele. Eliquis stopped due to fall risk. Continue ASA. Check TSH (2) Syncope: Code(s): R55 - Syncope and collapse Status: Acute Assessment and Plan: Etiology unclear. This could be multifactorial. Patient is on numerous psychotropics and sedative medications that could have contributed to this. Consider also dehydration with orthostasis. IV fluids started. BP stable. Monitor on tele. PT/OT. (3) Rhabdomyolysis: Code(s): M62.82 - Rhabdomyolysis Status: Acute Assessment and Plan: Likely secondary to fall. TCK 1047. He was started on IV fluids. Renal function okay. Hold Lipitor. Follow (4) Elevated troponin: Code(s): R77.8 - Other specified abnormalities of plasma proteins Status: Acute Assessment and Plan: Trop elevated on admission and has climbed to 0.598. EKG showing AFib/RVR, Rt BBB, PVCs and probably old IMI but no acute ST changes. Repeat EKG when in NSR showing similar findings. Echo 1 year ago with EF 55% and Grade I DD. Elevated Trop possibly related to the rhabdo and from the AFib/RVR as a Type II myocardial injury. Cardiology following and appreciate their input. Repeat Echo (5) Confusion: Code(s): R41.0 - Disorientation, unspecified Status: Acute Assessment and Plan: Patient alert but confused. Concussion? CT brain showing no acute findings. Suspect more chronic issue possibly underlying dementia. Check TSH/B12. PT/OT. Monitor clinically. Check MRI given the AFib and noncompliant with Eliquis (6) CAD (coronary artery disease): Qualifiers: Associated angina: without angina Coronary Disease-Associated Artery/Lesion type: [place] artery [place] vs. transplanted heart: [place] heart Qualified Code(s): I25.10 - Atherosclerotic heart disease of [place] coronary artery without angina pectoris Code(s): I25.10 - Atherosclerotic heart disease of [place] coronary artery without angina pectoris Status: Chronic Assessment and Plan: Stable. Denies chest pain. Contineu Metoprolol and ASA. Hold Lipitor due to the rhabdo. (7) Spinal stenosis of lumbar region: Code(s): M48.061 - Spinal stenosis, lumbar region without neurogenic claudication Status: Acute Assessment and Plan: Status post fusion surgery. Start PT/OT (8) DM2 (diabetes mellitus, type 2): Qualifiers: Diabetes mellitus complication status: with other specified complication Diabetes mellitus fpc insulin use: without oil heaterman use Qualified Code(s): E11.69 - Type 2 diabetes mellitus with other specified complication Code(s): E11.9 - Type 2 diabetes mellitus without complications Status: Chronic Assessment and Plan: No A1c documented. The patient's blood glucose was reviewed on 06/14 Glucose remains well controlled. Continue AccuCheks covering with sliding scale. Hypoglycemia protocol available as needed. Continue to hold metformin (9) DVT prophylaxis: Code(s): Z29.9 - Encounter for prophylactic measures, unspecified Status: Acute Assessment and Plan: SCDs Subjective Date/time seen: 06/14/21 10:01 Interval history: 75yo male with hx of AFib, spinal stenosis s/p surgical repair, recurrent syncopal episodes with HoTN some related to medication noncompliance, DM, CHF and CAD here for syncopal episode. Patietn is alert but confused. He mentions that he vaccinated for COVID but does not remember when or what vaccine type. He denies CP, he
[2021-06-14] MEDS: SODIUM CHLORIDE 0.9% IV 1,000 ML 100 ML IV CONT ×3 (10:03→20:19)
--- NOTE | 2021-06-14 11:03 | PCOTNOTE ---
Attempted OT evaluation, despite education on benefits of working with therapy patient adamantly refused therapy, reporting I do not want to work with therapy and I do not want to talk to you . RN notified
--- NOTE | 2021-06-14 11:07 | PCPTNOTE ---
Attempted to perform PT evaluation today at 11:00. Patient was disinterested in answering history questions and kept asking me, to what end is all of this.? and repeatedly stated that I sound like a laywer, are we in court? I attempted to answer his questions to the best of my ability stating that I am with physical therapy and have an ultimate goal to help him be safe when he leaves the hospital and to help him prevent any falls and that today I would ask him to stand up with me or go for a short walk if he felt like he could and he continued state that he did not understand what end is all of this. Ayo then stated if I were you, I would not want to be me at which point I told him that that was hurtful to say and therapy would come back to work with him another time.
[2021-06-14 11:44] LABS: Glucose Point of Care 162 mg/dl (65-105)
[2021-06-14 16:16] LABS: Glucose Point of Care 148 mg/dl (65-105)
[2021-06-14 20:19] LABS: Glucose Point of Care 142 mg/dl (65-105)
[2021-06-14] MEDS: ACETAMINOPHEN 500 MG TABLET 1000 MG PO (21:07)
[2021-06-15] VITALS (14 sets, daily range): BP systolic 96–139; BP diastolic 62–78; PULSE 73–90; RESP 12–20; TEMP 36.4–37.1; O2SAT 93–100
--- NOTE | 2021-06-15 | ECHO_ITS ---
Patient Info Name: Ayo Judge Age: 75 years : 1945 Gender: Male Ht: 70 in Wt: 197 lbs BSA: 2.12 m2 HR: 84 bpm BP: 139 / 75 mmHg Heart Rhythm: Sinus Rhythm Exam Date: 06/15/2021 8:47 AM Exam Location: [facility] Patient Status: Inpatient Admit Date: 06/14/2021 Staff Ordering Physician: Marvin Grissom MD Band Saw Filer: [email or web address] Attending Provider: Winston Talbert MD Exam Type: CA echo doppler color flow Study Info Indications - ATRIAL FIB RVR Complete two-dimensional, color flow and Doppler transthoracic echocardiogram is performed. Summary 1. Complete two-dimensional, color flow and Doppler transthoracic echocardiogram is performed. 2. Normal left ventricular size and thickness with mild global hypokinesis and severe hypokinesis of the basal in for septal segment and mid anterolateral segment. Normal diastolic function. Visually the ejection fraction is about 40%. 3. Left atrial chamber dimension is mildly enlarged. 4. Right ventricular chamber dimension is mildly enlarged, with normal contractility. 5. Mildly calcified aortic valve with no significant stenosis. 6. No pulmonary hypertension, estimated pulmonary arterial systolic pressure is 34 mmHg. 7. Probable sinus rhythm. Left Ventricle Left ventricular chamber dimension is normal. Left ventricular systolic function is mildly reduced, estimated at 35-40%. There is no increased left ventricular wall thickness. Left ventricular septal wall motion is normal. The left ventricular diastolic function is normal. Right Ventricle Right ventricular chamber dimension is mildly enlarged, with normal contractility. Right ventricular systolic function is normal. Left Atria Left atrial chamber dimension is mildly enlarged. Right Atria Right atrial chamber dimension is normal. Aortic Valve The aortic valve is trileaflet. There is no aortic valve sclerosis. There is no aortic valve stenosis. There is no aortic valve regurgitation. There is mild aortic valve calcification. Pulmonic Valve The pulmonic valve is normal. There is no pulmonic valve stenosis. There is no pulmonic regurgitation. Mitral Valve The mitral valve has normal leaflets. There is no mitral valve stenosis. There is trace mitral valve regurgitation. Tricuspid Valve The tricuspid valve leaflets are normal. There is no significant tricuspid valve stenosis. There is trace tricuspid valve regurgitation. No pulmonary hypertension, estimated pulmonary arterial systolic pressure is 34 mmHg. Pericardium/Pleural The pericardium appears normal. There is no pericardial effusion. Inferior Vena Cava Normal inferior vena cava with >50% collapse upon inspiration consistent with Empty right atrial pressure, 10 mmHg. Aorta The aortic root size at the sinus of Valsalva is normal. The prox ascending aorta size is normal. Left Ventricular Outflow Tract Name Value Normal LVOT 2D LVOT Diameter 2.3 cm LVOT Doppler LVOT Peak Gradient 3 mmHg LVOT Mean Gradient 2 mmHg LVOT VTI
[2021-06-15 05:14] LABS: Alanine Aminotransferase 21 U/L (4-50); Albumin Level 2.9 g/dL (3.5-5.1); Alkaline Phosphatase 62 U/L (38-126); Anion Gap 1 mmol/L (8-16); Aspartate Amino Transferase 43 U/L (17-59); Blood Urea Nitrogen 25 mg/dL (9-20); Carbon Dioxide 26 mmol/L (22-30); Chloride 110 mmol/L (98-107); Creatine Kinase 339 U/L (55-170); Estimated CRCL calculation 75 ml/min; Estimated Glomerular Filt Rate > 60; Glucose 114 mg/dL (65-110); Potassium 3.6 mmol/L (3.4-5.0); Sodium 137 mmol/L (137-145)
[2021-06-15 06:07] LABS: Thyroid Stimulating Hormone Reflex 0.741 uIU/mL (0.465-4.68)
[2021-06-15] MEDS: SODIUM CHLORIDE 0.9% IV 1,000 ML 100 ML IV CONT (06:31)
[2021-06-15 08:11] LABS: Glucose Point of Care 112 mg/dl (65-105)
[2021-06-15] MEDS: GABAPENTIN 300 MG CAPSULE 600 MG PO ×3 (09:18→18:28)
[2021-06-15] MEDS: DULoxetine HCL 60 MG CAPSULE.DR PO (09:18)
[2021-06-15] MEDS: ASPIRIN 81 MG CHEWABLE TABLET PO (09:18)
[2021-06-15] MEDS: METOPROLOL SUCCINATE EXT REL 50 MG TABCR PO (09:18)
--- NOTE | 2021-06-15 10:56 | PM.PNCARD ---
Progress Note: A&P Assessment and Plan (1) Paroxysmal atrial flutter: Code(s): I48.92 - Unspecified atrial flutter Status: Acute Assessment and Plan: History of paroxysmal atrial flutter. Patient stopped taking his medications and was admitted with a flutter RVR; converted to NSR. Back on p.o. metoprolol; may need amiodarone instead, if not able to tolerate metoprolol 2nd orthostasis, though he has mildly elevated LFTs at this time. CHeck LFTs in a.m. In view of his multiple falls and head contusions I think it is best not to continue anticoagulation. DC Eliquis. Use ASA for CAD. Reviewed these changes with patient. (2) Elevated troponin: Code(s): R77.8 - Other specified abnormalities of plasma proteins Status: Acute Assessment and Plan: Patient does have a mildly elevated troponin but no ischemic changes and apparently no chest pain. Doubt ACS. No ischemic workup needed. (3) Syncope: Code(s): R55 - Syncope and collapse Status: Acute Assessment and Plan: Multiple episodes of syncope versus falls. Documented hypotension by EMS, and history of orthostasis documented in the office, suggest that orthostasis may be the etiology rather than arrhythmias. However with his decreased LV function arrhythmias are always a possibility. Telemetry shows some PVCs but significant pauses or sustained ventricular tachycardia. Apparently was wearing a monitor from [facility] prior to admission. Perhaps he can resume the patch montior on discharge, tough he doesn't know where it is and is unhappy w/ the company. (Wonder if he was wearing the monitor when he had his events [employer]?) Echo at [facility] showed mild LV dysfunction, EF 45-50%. Are echo showed EF of 40% with wall motion abnormalities. Carotid ultrasound at [place] did not show any significant stenosis. Hydrated. Continue to check orthostatics. Continue Ph Tx to evaluate for gait disturbance. If patient cannot tolerate metoprolol secondary to orthostasis, then may need to use amiodarone to control PAFlutter.. Avoid diuretics; DC HCTZ. (4) Confusion: Code(s): R41.0 - Disorientation, unspecified Status: Acute Assessment and Plan: Patient appears to have some dementia, but is more oriented than yesterday. Likely will need to move to some type of assisted living or rehab but patient is not agreeing to this. (5) CAD (coronary artery disease): Qualifiers: Associated angina: without angina Coronary Disease-Associated Artery/Lesion type: [place] artery [place] vs. transplanted heart: [place] heart Qualified Code(s): I25.10 - Atherosclerotic heart disease of [place] coronary artery without angina pectoris Code(s): I25.10 - Atherosclerotic heart disease of [place] coronary artery without angina pectoris Status: Chronic Assessment and Plan: History of CAD and Left anterior descending stent, stable. Since he is not have any obvious angina or ACS, continue medical therapy with aspirin, atorvastatin (will resume since LFTs improved), metoprolol. Doubt we can add an CLAUDIO-inhibitor for his cardiomyopathy because of his low blood pressure. Subjective Date/time seen: 06/15/21 10:56 Interval history: Follow-up atrial fibrillation, syncope versus falls, orthostasis. Date of service 06/15/2021: Telemetry shows NSR rate 70s to 80s. Brief pauses, PVCs. Soft blood pressure times, and the upper 90s, orthostatic at times but not consistently, and not this morning. Physical tx notes decreased strength, balance and endurance and recommends further rehab. Patient is adverse to going to a rehab facility, as he does not feel that they are very good and he does not want to be forced to do anything. Review of Systems
[2021-06-15 11:29] LABS: Folic Acid 5.6 ng/mL (2.76->20)
[2021-06-15 11:30] LABS: Glucose Point of Care 250 mg/dl (65-105)
[2021-06-15] MEDS: CYANOCOBALAMIN INJ 1,000 MCG/ML VIAL 1000 MCG IM (13:21)
[2021-06-15] MEDS: INSULIN ASPART (*BKC) 100 UNITS/ML SUB-Q (13:22)
--- NOTE | 2021-06-15 14:52 | PM.IMPN ---
Progress Note: A&P Assessment and Plan (1) Atrial fibrillation with rapid ventricular response: Code(s): I48.91 - Unspecified atrial fibrillation Status: Acute Assessment and Plan: Patient with AFib/RVR on admission. He converted and follow up EKG showing NSR. Review of tele showing he is maintaining NSR. He is noncompliant with his medications related to his mental status. TSH normal. Continue Metoprolol home dose. Continue to monitor on tele. Eliquis stopped due to fall risk. Continue ASA. Echo as mentioned below. (2) Syncope: Code(s): R55 - Syncope and collapse Status: Acute Assessment and Plan: Etiology unclear. This could be multifactorial. Patient is on numerous psychotropics and sedative medications that could have contributed to this. Consider also dehydration with orthostasis. Orthostatic vitals this morning showing BP stable (119/67 -> 103/73 -> 120/62). IV fluids stopped. Continue PT/OT. Continue to hold sedatives. (3) Rhabdomyolysis: Code(s): M62.82 - Rhabdomyolysis Status: Acute Assessment and Plan: Likely secondary to fall. TCK 1047. He was started on IV fluids. Renal function remains stable. TCK dropped to 339 now. Continue to hold Lipitor. Okay to stop IV fluids. (4) Elevated troponin: Code(s): R77.8 - Other specified abnormalities of plasma proteins Status: Acute Assessment and Plan: Trop elevated on admission and has climbed to 0.598. EKG showing AFib/RVR, Rt BBB, PVCs and probably old IMI but no acute ST changes. Repeat EKG when in NSR showing similar findings. Echo at [facility] showed mild LV dysfunction, EF 45-50%. Elevated Trop initially felt related to the rhabdo and from the AFib/RVR as a Type II myocardial injury. Echo here showing normal LV size and thickness with mild global hypokinesis and severe HK of the basal and septal segment and mid anterolateral segment with EF about 40%. The WM abnormalities were not present one year ago but unclear if they were there present by Echo last month at [facility]. Cardiology following and appreciate their input. (5) Confusion: Code(s): R41.0 - Disorientation, unspecified Status: Acute Assessment and Plan: Patient alert but confused. Concussion? CT brain showing no acute findings. TSH normal. B12 low which could be contributing to his confusion. Consider also underlying dementia. Monitor clinically. MRI brain ordered. Replace B12. (6) B12 deficiency: Code(s): E53.8 - Deficiency of other specified B group vitamins Status: Acute Assessment and Plan: As above. Replace (7) CAD (coronary artery disease): Qualifiers: Associated angina: without angina Coronary Disease-Associated Artery/Lesion type: [place] artery [place] vs. transplanted heart: [place] heart Qualified Code(s): I25.10 - Atherosclerotic heart disease of [place] coronary artery without angina pectoris Code(s): I25.10 - Atherosclerotic heart disease of [place] coronary artery without angina pectoris Status: Chronic Assessment and Plan: Stable. Denies chest pain. Continue Metoprolol and ASA. Holding Lipitor due to the rhabdo. (8) Spinal stenosis of lumbar region: Code(s): M48.061 - Spinal stenosis, lumbar region without neurogenic claudication Status: Acute Assessment and Plan: Status post fusion surgery. Continue PT/OT. Up to the chair today. 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 The patient's blood glucose was reviewed on 06/15 Glucose rem
[2021-06-15 16:11] LABS: Glucose Point of Care 199 mg/dl (65-105)
--- NOTE | 2021-06-15 17:45 | PC.NURSE ---
Addendum entered by Obdulia Jauregui RN 06/15/21 20:12: Patient denies pain at this time. Patient denies loss of consciousness. Will continue to monitor closely with Neurological checks q4hr. Original Note: Dr Grissom notified of patient fall.
[2021-06-15 21:35] LABS: Glucose Point of Care 135 mg/dl (65-105)
[2021-06-16] VITALS (13 sets, daily range): BP systolic 95–143; BP diastolic 54–92; PULSE 78–102; RESP 16–20; TEMP 36.1–37; O2SAT 98–100
[2021-06-16 05:36] LABS: Albumin Level 3.2 g/dL (3.5-5.1); Anion Gap 4 mmol/L (8-16); Blood Urea Nitrogen 23 mg/dL (9-20); Calcium 8.3 mg/dL (8.4-10.2); Carbon Dioxide 26 mmol/L (22-30); Chloride 107 mmol/L (98-107); Estimated CRCL calculation 76 ml/min; Estimated Glomerular Filt Rate > 60; Glucose 127 mg/dL (65-110); Magnesium 1.6 mg/dL (1.6-2.3); Phosphorus 2.9 mg/dL (2.5-4.5); Potassium 3.7 mmol/L (3.4-5.0); Sodium 137 mmol/L (137-145)
[2021-06-16 06:06] LABS: Basophils Percent Auto 0.5 % (0.2-1.2); Eosinophils Absolute Auto 0.2 K/mm3 (0-0.3); Eosinophils Percent Auto 3.1 % (0-4.4); Hematocrit 34.2 % (42.0-52.0); Hemoglobin 10.7 g/dL (14.0-18.0); Immature Granulocyte Absolute 0.03 K/mm3 (0.00-0.031); Immature Granulocyte Percent A 0.5 % (0-0.5); Lymphocytes Percent Auto 18.2 % (18.3-44.2); Mean Corpuscular HGB Conc 31.3 g/dl (32-36); Mean Corpuscular Hemoglobin 29.2 pg (26-34); Mean Corpuscular Volume 93.4 fl (80-100); Mean Platelet Volume 10.5 fl (7.4-10.4); Monocytes Absolute Auto 0.6 K/mm3 (0.1-0.6); Monocytes Percent Auto 10.1 % (2.6-8.5); Neutrophils Absolute Auto 4.1 K/mm3 (1.3-6.7); Neutrophils Percent Auto 67.6 % (45.5-73.1); Platelet Count Result 211 k/mm3 (150-375); Red Blood Count 3.66 M/mm3 (4.6-6.20); Red Cell Distribution Width 14.2 % (11.5-14.5); White Blood Count 6.1 K/mm3 (4.5-10.0)
[2021-06-16] MEDS: ATORVASTATIN 40 MG TABLET PO (08:47)
[2021-06-16] MEDS: GABAPENTIN 300 MG CAPSULE 600 MG PO ×3 (08:47→17:49)
[2021-06-16] MEDS: DULoxetine HCL 60 MG CAPSULE.DR PO (08:48)
[2021-06-16] MEDS: ASPIRIN 81 MG CHEWABLE TABLET PO (08:48)
[2021-06-16] MEDS: CYANOCOBALAMIN INJ 1,000 MCG/ML VIAL 1000 MCG IM (08:48)
[2021-06-16] MEDS: METOPROLOL SUCCINATE EXT REL 50 MG TABCR PO (08:48)
[2021-06-16 09:51] LABS: Glucose Point of Care 109 mg/dl (65-105)
[2021-06-16 10:31] LABS: Hemoglobin A1C 7.3 % (<5.7)
[2021-06-16] MEDS: ENOXAPARIN 40 MG/0.4 ML SYRINGE SUB-Q (12:49)
[2021-06-16] MEDS: INSULIN ASPART (*BKC) 100 UNITS/ML SUB-Q (12:49)
[2021-06-16 13:01] LABS: Glucose Point of Care 205 mg/dl (65-105)
--- NOTE | 2021-06-16 13:02 | PM.PNCARD ---
Progress Note: A&P Additional Plan 75-year-old man with: Paroxysmal atrial fibrillation on treatment with apixaban and metoprolol successfully maintaining sinus rhythm. He has no active cardiac problem. I told him there is not a cardiac reason that he needs to go to rehab but his general health has been poor and he takes falls with some frequency. He will consider going to [facility] since I told him that it was a new facility and he may benefit from mat. Camilo Acosta MD [facility] Subjective Date/time seen: Date of service: 06/16/21 13:02 Interval history: Follow-up atrial fibrillation, syncope versus falls, orthostasis. Date of service 06/15/2021: Telemetry shows NSR rate 70s to 80s. Brief pauses, PVCs. Soft blood pressure times, and the upper 90s, orthostatic at times but not consistently, and not this morning. Physical tx notes decreased strength, balance and endurance and recommends further rehab. Patient is adverse to going to a rehab facility, as he does not feel that they are very good and he does not want to be forced to do anything. Date of service 06/16/2021: Continues to maintain normal sinus rhythm no evidence of recurrent atrial fibrillation. Patient still is adverse to the idea of going to a rehab facility because he states he had a very bad experience of a patient had a previous rehab coming into his room and defecating on the floor. He will consider going to the new [facility] if that is an option. Exam Narrative: Sitting up in a chair today, a bit irritable and rambling. However more awake and aware of his situation than yesterday. Has contusions over the left eye and forehead, left forearm, left knee and minor scratches and contusions elsewhere. Const: General: comfortable, no acute distress and confusion Orientation/consciousness: confusion HENMT: General nose exam: no epistaxis Eyes: EOM: EOMs intact bilaterally Neck: Neck: supple Carotids: no bruits Resp: Effort & Inspection: normal respiratory effort Auscultation: rhonchi (Scattered coarse rhonchi) Cardio: Rate: regular rate Rhythm: regular rhythm Heart sounds: no murmurs Other: Intact pedal pulses GI: Inspection: non-distended Skin: Wounds: wounds noted (As above) Neuro: General: confusion Cognition (Neuro): abnormal cognition Speech: normal speech Other: He has extremely poor recollection of recent events although distant memory appears mostly intact. Extrem: General: no edema and no pedal edema Psych: Mental Status: mental status grossly abnormal Affect: No normal affect Other: Irritated and unhappy Objective Data Vital Signs Vital Signs: Vital Signs - 24 hr 06/15/21 14:00 06/15/21 16:00 06/15/21 18:00 Temperature 36.6 C Pulse Rate 83 78 80 Respiratory Rate 16 Blood Pressure 134/78 Pulse Oximetry 100 06/15/21 20:00 06/15/21 22:00 06/16/21 00:00 Temperature 36.4 C L 36.4 C Pulse Rate 84 86 90 Respiratory Rate 20 20 Blood Pressure 119/64 95/54 L Pulse Oximetry 99 100 06/16/21 02:00 06/16/21 04:00 06/16/21 06:00 Temperature 36.8 C Pulse Rate 91 92 86 Respiratory Rate 16 Blood Pressure 124/79 Pulse Oximetry 98 06/16/21 08:00 06/16/21 10:00 Temperature 36.2 C L Pulse Rate 57 L 86 Respiratory Rate 18 Blood Pressure 111/64 Pulse Oximetry 99 Intake/Output Intake/Output: Intake & Output 06/13/21 06/14/21 06/15/21 06/16/21 23:59 23:59 23:59 23:59 Intake Total 1000 2450.0 2510 230 Output Total 425 900 800 Balance 1000 2025.0 1610 -570 Meds/Results Medications: Active Medications Generic Name Dose Route Start Last Admin Trade Name Sukhjinderq PRN Reason Stop Dose Admin Acetaminophen 1,000 mg 06/14/21 02:21 06/14/21 21:07 Acetaminophen 500 Mg Tablet PO 1,000 mg Q6H PRN Administration Pain Rated 1-3 Aspirin 81 mg 06/14/21 08:00 06/16/21 08:48 Aspirin 81 Mg Chewable Tablet PO 81 mg DAILY@0800 CARLITOS Administration Atorvasta
--- NOTE | 2021-06-16 13:49 | PM.IMPN ---
Progress Note: A&P Assessment and Plan (1) Atrial fibrillation with rapid ventricular response: Code(s): I48.91 - Unspecified atrial fibrillation Status: Acute Assessment and Plan: Patient with AFib/RVR on admission. He converted and follow up EKG showing NSR. Review of tele showing he is maintaining NSR. He is noncompliant with his medications related to his mental status. TSH normal. Continue Metoprolol home dose. Continue to monitor on tele. Eliquis stopped due to fall risk. Continue ASA. Echo as mentioned below. Discussed with Cardiology (2) Syncope: Code(s): R55 - Syncope and collapse Status: Acute Assessment and Plan: Etiology unclear. This could be multifactorial. Patient is on numerous psychotropics and sedative medications that could have contributed to this. Consider also dehydration with orthostasis. Orthostatic vitals yesterday morning showing BP stable (119/67 -> 103/73 -> 120/62). IV fluids stopped yesterday. Continue PT/OT. Continue to hold sedatives. (3) Rhabdomyolysis: Code(s): M62.82 - Rhabdomyolysis Status: Acute Assessment and Plan: Likely secondary to fall. TCK 1047. He was started on IV fluids. Renal function remains stable. TCK dropped to 339. Fluids off and he is eating and drinking normally. Resolved. (4) Elevated troponin: Code(s): R77.8 - Other specified abnormalities of plasma proteins Status: Acute Assessment and Plan: Trop elevated on admission and has climbed to 0.598. EKG showing AFib/RVR, Rt BBB, PVCs and probably old IMI but no acute ST changes. Repeat EKG when in NSR showing similar findings. Echo May 2021 at [facility] showed mild LV dysfunction, EF 45-50%. Elevated Trop initially felt related to the rhabdo and from the AFib/RVR as a Type II myocardial injury. Echo here showing normal LV size and thickness with mild global hypokinesis and severe HK of the basal and septal segment and mid anterolateral segment with EF about 40%. The WM abnormalities were not present one year ago but unclear if they were there present by Echo last month at [facility]. Cardiology following and appreciate their input. Continue ASA, Lipitor and Toprol. (5) Confusion: Code(s): R41.0 - Disorientation, unspecified Status: Acute Assessment and Plan: Patient alert but confused. Concussion? CT brain showing no acute findings. TSH normal. B12 low which could be contributing to his confusion. Consider underlying dementia. Consider CVA given the AFib and his noncompliance with Eliquis prior to admission. He has had steady improvement since admission. Monitor clinically. (6) B12 deficiency: Code(s): E53.8 - Deficiency of other specified B group vitamins Status: Acute Assessment and Plan: B12 low at 183. This can contribute to confusion. B12 injection given yesterday and will repeat today. Repeat weekly x 4 doses then monthly. (7) CAD (coronary artery disease): Qualifiers: Associated angina: without angina Coronary Disease-Associated Artery/Lesion type: [place] artery [place] vs. transplanted heart: [place] heart Qualified Code(s): I25.10 - Atherosclerotic heart disease of [place] coronary artery without angina pectoris Code(s): I25.10 - Atherosclerotic heart disease of [place] coronary artery without angina pectoris Status: Chronic Assessment and Plan: Stable. Denies chest pain. Continue Metoprolol and ASA. Lipitor has been resumed (8) Spinal stenosis of lumbar region: Code(s): M48.061 - Spinal stenosis, lumbar region without neurogenic claudication Status: Acute Assessment and Plan: Status post spinal fusion surgery. Patietn had fall but without obvious injury. Continue PT/OT. (9) DM2 (diabetes mellitus, type 2): Qualifiers: Diabetes mellitus complication status: with other specified complication Diabetes mellitus long t
[2021-06-16] MEDS: MAGNESIUM OXIDE 400 MG TABLET PO (15:33)
[2021-06-16 17:25] LABS: Glucose Point of Care 113 mg/dl (65-105)
--- NOTE | 2021-06-16 18:31 | PC.NURSE ---
This patient, Ayo Judge, was received from [ IMU] on 06/16/21 at 1831. Patient oriented to unit policies and routines. I received report from María.
[2021-06-16 19:33] LABS: Glucose Point of Care 148 mg/dl (65-105)
[2021-06-16] MEDS: ACETAMINOPHEN 500 MG TABLET 1000 MG PO (22:19)
[2021-06-17] VITALS (9 sets, daily range): BP systolic 114–140; BP diastolic 69–78; PULSE 72–91; RESP 18; TEMP 35.6–36.6; O2SAT 96–100
--- NOTE | 2021-06-17 09:13 | PM.PNCARD ---
Progress Note: A&P Assessment and Plan (1) Paroxysmal atrial flutter: Code(s): I48.92 - Unspecified atrial flutter Status: Acute Assessment and Plan: History of paroxysmal atrial flutter. Patient stopped taking his medications and was admitted with a flutter RVR; converted to NSR. Back on p.o. metoprolol and maintaining sinus rhythm In view of his multiple falls and head contusions I think it is best not to continue anticoagulation. DC Eliquis. Use ASA for CAD. (2) Elevated troponin: Code(s): R77.8 - Other specified abnormalities of plasma proteins Status: Acute Assessment and Plan: Patient does have a mildly elevated troponin but no ischemic changes and apparently no chest pain. Doubt ACS. No ischemic workup needed. (3) Syncope: Code(s): R55 - Syncope and collapse Status: Acute Assessment and Plan: Multiple episodes of syncope versus falls. Documented hypotension by EMS, and history of orthostasis documented in the office, suggest that orthostasis may be the etiology rather than arrhythmias. However with his decreased LV function arrhythmias are always a possibility. Telemetry shows some PVCs but significant pauses or sustained ventricular tachycardia. Apparently was wearing a monitor from [facility] prior to admission. Perhaps he can resume the patch montior on discharge, tough he doesn't know where it is and is unhappy w/ the company. 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 Are echo showed EF of 40% with wall motion abnormalities. Carotid ultrasound at [place] did not show any significant stenosis. Hydrated. Continue to check orthostatics. Continue Ph Tx to evaluate for gait disturbance. If patient cannot tolerate metoprolol secondary to orthostasis, then may need to use amiodarone to control PAFlutter.. Avoid diuretics; DC HCTZ. (4) Confusion: Code(s): R41.0 - Disorientation, unspecified Status: Acute Assessment and Plan: Patient appears to have some dementia, but is more oriented than yesterday. Likely will need to move to some type of assisted living or rehab but patient is not agreeing to this. (5) CAD (coronary artery disease): Qualifiers: Coronary Disease-Associated Artery/Lesion type: [place] artery [place] vs. transplanted heart: [place] heart Associated angina: without angina Qualified Code(s): I25.10 - Atherosclerotic heart disease of [place] coronary artery without angina pectoris Code(s): I25.10 - Atherosclerotic heart disease of [place] coronary artery without angina pectoris Status: Chronic Assessment and Plan: History of CAD and Left anterior descending stent, stable. Since he is not have any obvious angina or ACS, continue medical therapy with aspirin, atorvastatin (will resume since LFTs improved), metoprolol. Doubt we can add an CLAUDIO-inhibitor for his cardiomyopathy because of his low blood pressure. Additional Plan 75-year-old male we were asked to see for the reason of paroxysmal atrial flutter. He has converted to sinus rhythm and is maintaining sinus rhythm on metoprolol. His Eliquis has been discontinued due to frequent falling. He does not have any active cardiac issues at this time. We will sign off for now. Thank you for asking us to be involved in the care of this patient. Please not hesitate to contact us if we can be of help in the care of this patient in any way. Subjective Date/time seen: 06/17/21 09:13 Interval history: Follow-up atrial fibrillation, syncope versus falls, orthostasis. Date of service 06/15/2021: Telemetry shows NSR rate 70s to 80s. Brief pauses, PVCs. Soft blood pressure times, an
[2021-06-17 10:00] LABS: Glucose Point of Care 110 mg/dl (65-105)
--- NOTE | 2021-06-17 10:59 | P.CDI_ITS ---
CDI Query Clarification Request -Type II myocardial injury has been documented -Troponins elevated but no ischemic changes and apparently no chest pain documented Please clarify diagnosis: * Type II myocardial ischemia/infarct * Non-ischemic myocardial injury * Unable to determine <Coleen Salomon RN - Last Filed: 06/17/21 11:03>
--- NOTE | 2021-06-17 10:59 | WPDCDIQUERY2 ---
CDI Query Clarification Request -Type II myocardial injury has been documented -Troponins elevated but no ischemic changes and apparently no chest pain documented Please clarify diagnosis: Type II myocardial ischemia/infarct Non-ischemic myocardial injury Unable to determine <Coleen Salomon RN - Last Filed: 06/17/21 11:03>
[2021-06-17 12:52] LABS: Glucose Point of Care 151 mg/dl (65-105)
--- NOTE | 2021-06-17 13:12 | PM.DS ---
DS: Admitting Diagnosis Discharge Date 06/17/21 Admitting Diagnosis Syncopal episodes, fall, AFib/RVR DS: Discharge Diagnosis Discharge Diagnosis (1) Atrial fibrillation with rapid ventricular response: Code(s): I48.91 - Unspecified atrial fibrillation Status: Acute Assessment and Plan: Patient with AFib/RVR on admission. He converted and a follow up EKG showing NSR. Review of tele showing he is maintaining NSR. He is noncompliant with his medications related to his mental status. TSH was normal. We continued his Metoprolol home dose. Eliquis was stopped due to fall risk. We continued ASA. Echo as mentioned below. Cardiology followed along (2) Syncope: Code(s): R55 - Syncope and collapse Status: Acute Assessment and Plan: Etiology unclear. This could be multifactorial. Patient is on numerous psychotropics and sedative medications that could have contributed to this. Consider also dehydration with orthostasis. Orthostatic vitals showing BP stable (119/67 -> 103/73 -> 120/62). Treated with IV fluids. He worked with PT/OT and did well but did have balance issues. Plan to continue to hold sedatives. (3) Rhabdomyolysis: Code(s): M62.82 - Rhabdomyolysis Status: Acute Assessment and Plan: Likely secondary to fall. TCK 1047 on admission. He was started on IV fluids. Renal function remained stable. TCK dropped to 339. Fluids stopped since he was eating and drinking normally. Lipitor was held but now resumed with resolution of the rhabdo. (4) Elevated troponin: Code(s): R77.8 - Other specified abnormalities of plasma proteins Status: Acute Assessment and Plan: Trop elevated on admission and climbed to 0.598. EKG showing AFib/RVR, Rt BBB, PVCs and probably old IMI but no acute ST changes. Repeat EKG when in NSR showing similar findings. Echo May 2021 at [facility] showed mild LV dysfunction, EF 45-50%. Elevated Trop felt related to the rhabdo and from the AFib/RVR as a Type II myocardial injury. Echo here showing normal LV size and thickness with mild global hypokinesis and severe HK of the basal and septal segment and mid anterolateral segment with EF about 40%. The WM abnormalities were not present one year ago but unclear if they were there present by Echo last month at [facility]. Cardiology following and were aware of these findings. We continued ASA, Lipitor and Toprol. (5) Confusion: Code(s): R41.0 - Disorientation, unspecified Status: Acute Assessment and Plan: Patient alert but confused. Concussion? CT brain showing no acute findings. TSH normal. B12 low which could be contributing to his confusion. Consider underlying dementia. Consider occult CVA given the AFib and his noncompliance with Eliquis prior to admission. Unable to obtain MRI. He has had steady improvement since admission. (6) B12 deficiency: Code(s): E53.8 - Deficiency of other specified B group vitamins Status: Acute Assessment and Plan: B12 low at 183. This can contribute to confusion and unsteady gait. B12 injection given with plans for weekly x 4 doses then monthly. (7) CAD (coronary artery disease): Qualifiers: Coronary Disease-Associated Artery/Lesion type: [place] artery [place] vs. transplanted heart: [place] heart Associated angina: without angina Qualified Code(s): I25.10 - Atherosclerotic heart disease of [place] coronary artery without angina pectoris Code(s): I25.10 - Atherosclerotic heart disease of [place] coronary artery without angina pectoris Status: Chronic Assessment and Plan: Stable. Denies chest pain. We continued Metoprolol and ASA. Lipitor was also resumed (8) Spinal stenosis of lumbar region: Code(s): M48.061 - Spinal stenosis, lumbar region without neurogenic claudication Status: Acute Assessment and Plan: Status post spinal fusion surgery. Deanne castaneda
[2021-06-17] MEDS: GABAPENTIN 300 MG CAPSULE 600 MG PO (13:53)
[2021-06-17] MEDS: ACETAMINOPHEN 500 MG TABLET 1000 MG PO (16:41)
== END 2021-06-17 16:50 | DRG 309 ==
LOC: ANHED 22:12 → ANHIMU 22:19 → ANH3MED 06-16 21:07 → ANHIMU 06-21 10:19
PROVIDERS: Internal Medicine Cardiovascular Disease; Admitting Provider Internal Medicine; Emergency Provider Emergency Medicine; PCP Physician Assistant; Visit Provider Internal Medicine
DX: I48.91 Unspecified atrial fibrillation (principal); I50.30 Unspecified diastolic (congestive) heart failure; M62.82 Rhabdomyolysis; I48.92 Unspecified atrial flutter; R77.8 Other specified abnormalities of plasma proteins; E11.69 Type 2 diabetes mellitus with other specified complication; R55 Syncope and collapse; R41.0 Disorientation, unspecified; G89.29 Other chronic pain; I25.10 Atherosclerotic heart disease of native coronary artery without angina pectoris; M48.061 Spinal stenosis, lumbar region without neurogenic claudication; E83.42 Hypomagnesemia; E53.8 Deficiency of other specified B group vitamins; R29.6 Repeated falls; Z91.14 Patient's other noncompliance with medication regimen; Z79.01 Long term (current) use of anticoagulants; Z79.84 Long term (current) use of oral hypoglycemic drugs; Z79.899 Other long term (current) drug therapy; Z95.5 Presence of coronary angioplasty implant and graft; Z98.1 Arthrodesis status
CPT/HCPCS: 36415; 70450; 71045; 72125; 73564; 80053; 80069; 80307; 81001; 82550; 82607; 82746; 82948; 83036; 83735; 83880; 84443; 84484; 85025; 85610; 85730; 93005; 93306; 96361; 96365; 96366; 96376; 97110; 97116; 97161; 97165; 97535; 99285; A9270; G0378; J1650; J1815; J3420; J7030

== ENCOUNTER 2021-11-12 13:51 | Inpatient (IN) | payer MEDICARE, OTHER, SELFPAY ==
--- NOTE | ~2021-11-12 | XR_ITS ---
EXAMINATION: XR chest 2V DATE: 11/15/2021 08:38 INDICATION: Shortness of breath. Congestive heart failure. Productive cough. TECHNIQUE: frontal and lateral views of the chest were obtained. COMPARISON: Chest radiograph dated 11/12/2021 FINDINGS: Unchanged elevation of the right hemidiaphragm. Small bilateral pleural effusions, left greater than right. Remainder of lungs are clear. No pulmonary edema or pneumothorax. The cardiomediastinal silhou ette is normal. Partially visualized combined instrumented anterior and posterior spinal fusion in th e lower thoracic and upper lumbar spine. Likely multilevel laminectomies in the cervical spine with p late and screws projecting along the left-sided posterior elements at 3 levels in the mid to lower ce rvical spine. There are bridging osteophytes at multiple levels in the thoracic and lumbar spine, con sistent with diffuse idiopathic skeletal hyperostosis (DISH). Partially visualized IVC filter. IMPRESSION: 1. Elevation of the right hemidiaphragm with small bilateral pleural effusions. Reviewed, dictated and finalized at location A. STANT BOILER OPERATOR
--- NOTE | ~2021-11-12 | XR_ITS ---
EXAMINATION: XR chest 2V DATE: 11/12/2021 15:00 INDICATION: Dyspnea TECHNIQUE: frontal and lateral views of the chest were obtained. COMPARISON: Chest radiograph dated 06/13/2021 FINDINGS: Evaluation on the lateral projection is limited by patient body habitus. Chronic elevation of the rig ht hemidiaphragm. There appears to be blunting at the lateral posterior sulci consistent with small b ilateral pleural effusions and associated atelectasis although pneumonia not excludable. Minimal amou nt of the pleural fluid is also seen tracking along the right minor fissure. Remainder the lungs appe ar clear with no pulmonary edema or pneumothorax. Heart size is normal. Partially visualized vertical kia and pedicle screw fixation for posterior spinal fusion at the upper lumbar spine. IMPRESSION: 1. Opacities at the posterior sulci consistent with small bilateral pleural effusions and associated atelectasis versus less likely pneumonia. Reviewed, dictated and finalized at location A. Y LIFT RIGGER IMPRESSION: 1. Opacities at the posterior sulci consistent with small bilateral pleural eff usions and associated atelectasis versus less likely pneumonia.
--- NOTE | ~2021-11-12 | US_ITS ---
EXAMINATION:US venous doppler LE BI INDICATION:Leg swelling TECHNIQUE: Multiple grayscale, color flow and Doppler images of the right and left lower extremity de ep venous systems were obtained and reviewed. COMPARISON:Ultrasound dated 03/26/2007 FINDINGS: The common femoral, superficial femoral and popliteal veins demonstrate normal respiratory variation, augmentation and compressibility. Color flow is also seen within the posterior tibial, pe roneal, greater saphenous and profunda veins. IMPRESSION: 1: No lower extremity deep venous thrombosis. Reviewed, dictated and finalized at location A. TER DIRECTOR
[2021-11-12 14:21] VITALS: BP 114/93; PULSE 107; RESP 24; TEMP 36.6; O2SAT 100
--- NOTE | 2021-11-12 14:40 | ECG_ITS ---
Measurements Intervals [place] Rate: 109 P: -31 TN: 261 QRS: 111 QRSD: 180 T: -12 QT: 398 QTc: 537 Interpretive Statements ATRIAL FLUTTER/TACHYCARDIA WITH RAPID VENTRICULAR RESPONSE RIGHT BUNDLE BRANCH BLOCK CANNOT RULE OUT SEPTAL INFARCT, AGE INDETERMINATE BASELINE ARTIFACT- I, II, III, AVF ABNORMAL ECG Electronically Signed On 11-12-2021 15:18:11 MOTOR INSPECTION MECHANIC by Ronny Elizondo D.O.
[2021-11-12 14:42] VITALS: BP 132/89; PULSE 110; RESP 20; O2SAT 100
[2021-11-12 15:22] LABS: Basophils Absolute Auto 0.1 K/mm3 (0.0-0.1); Basophils Percent Auto 0.7 % (0.2-1.2); Eosinophils Absolute Auto 0.2 K/mm3 (0-0.3); Eosinophils Percent Auto 2.5 % (0-4.4); Hematocrit 31.2 % (42.0-52.0); Hemoglobin 9.6 g/dL (14.0-18.0); Immature Granulocyte Absolute 0.03 K/mm3 (0.00-0.031); Immature Granulocyte Percent A 0.4 % (0-0.5); Lymphocytes Percent Auto 9.5 % (18.3-44.2); Mean Corpuscular HGB Conc 30.8 g/dl (32-36); Mean Corpuscular Hemoglobin 28.2 pg (26-34); Mean Corpuscular Volume 91.8 fl (80-100); Mean Platelet Volume 9.6 fl (7.4-10.4); Monocytes Absolute Auto 0.8 K/mm3 (0.1-0.6); Monocytes Percent Auto 9.9 % (2.6-8.5); Neutrophils Absolute Auto 6.5 K/mm3 (1.3-6.7); Platelet Count Result 241 k/mm3 (150-375); White Blood Count 8.5 K/mm3 (4.5-10.0)
[2021-11-12 15:30] LABS: Add Urine Microscopic? YES; Appearance Urine Clear (Clear); Bilirubin Urine Negative (Negative); Blood Urine Negative (Negative); Color Urine Yellow (Yellow); Glucose Urine UA Negative (Negative); Ketones Urine Negative (Negative); Leukocyte Esterase Ur Negative LEU/UL (Negative); Mucus Urine Rare /lpf; Nitrate Urine Negative (Negative); Protein Urine 1+ mg/dL (Negative); RBC Urine 0-2 /hpf (0-2); Specific Grav Ur 1.014 (1.001-1.035); Squamous Epithelial Cell Urine Rare /hpf (Few); Urobilinogen Urine Negative mg/dL (<2.0); WBC Urine 0-3 /hpf
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
[2021-11-12] MEDS: FUROSEMIDE INJ 40 MG/4 ML VIAL IV PUSH ×2 (15:41→16:29)
[2021-11-12 15:42] LABS: Alanine Aminotransferase 17 U/L (4-50); Albumin Level 3.7 g/dL (3.5-5.1); Alkaline Phosphatase 92 U/L (38-126); Anion Gap 8 mmol/L (8-16); Aspartate Amino Transferase 27 U/L (17-59); Bilirubin,Total 1.1 mg/dL (0.2-1.3); Blood Urea Nitrogen 31 mg/dL (9-20); Calcium 8.5 mg/dL (8.4-10.2); Carbon Dioxide 24 mmol/L (22-30); Chloride 102 mmol/L (98-107); Estimated CRCL calculation 49 ml/min; Estimated Glomerular Filt Rate 54; Glucose 207 mg/dL (65-110); Potassium 5.2 mmol/L (3.4-5.0); Sodium 134 mmol/L (137-145)
[2021-11-12 15:49] LABS: NT Pro B Type Natriuretic Pept 3940 pg/mL (5-100)
[2021-11-12] MEDS: GABAPENTIN 300 MG CAPSULE PO ×2 (16:29→18:55)
[2021-11-12 17:10] LABS: Troponin I 0.035 ng/mL (0.000-0.034)
[2021-11-12 17:46] VITALS: BP 114/67; PULSE 83; RESP 18; O2SAT 99
[2021-11-12 18:37] LABS: SARS-CoV-2 RNA PCR Negative
--- NOTE | 2021-11-12 19:21 | PC.NURSE ---
Report received from CHARITO Guardado. Assumed care of patient at this time.
[2021-11-12 20:12] VITALS: BP 113/83; PULSE 88; RESP 20; O2SAT 97
[2021-11-12 21:15] LABS: Troponin I 0.035 ng/mL (0.000-0.034)
[2021-11-12 21:54] VITALS: BP 113/83; PULSE 99; RESP 22; TEMP 36.8; O2SAT 97
[2021-11-12 22:00] VITALS: BP 118/53; PULSE 75; RESP 20; TEMP 35.8; O2SAT 100
[2021-11-12 22:14] VITALS: BMI 36.8
[2021-11-12 22:17] VITALS: BMI 36.9
--- NOTE | 2021-11-12 22:34 | ADMGEN ---
This patient, Ayo Judge, was admitted to Medical Room 241-. Patient/family oriented to hospital policies and general routines including ID bracelet, bed and alarms, visiting hours, pain management, procedures, bathroom and other care routines, personal items, smoking policy, room service/diet, and visiting hours. Information on how to activate the Rapid Response Team has been discussed. Patient/Family are encouraged to report perceived risks to care and to ask questions if they do not understand what they are told or what they should do.
[2021-11-12 23:38] LABS: Troponin I 0.034 ng/mL (0.000-0.034)
[2021-11-13] VITALS (11 sets, daily range): BP systolic 100–131; BP diastolic 49–85; PULSE 55–104; RESP 17–20; TEMP 35.9–36.6; O2SAT 97–100
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
[2021-11-13] MEDS: ACETAMINOPHEN 500 MG TABLET 1000 MG PO ×2 (01:24→20:12)
[2021-11-13] MEDS: MELATONIN 3 MG TABLET PO ×2 (01:25→20:12)
--- NOTE | 2021-11-13 06:00 | ECHO_ITS ---
Patient Info Name: Ayo Judge Age: 76 years : 1945 Gender: Male Ht: 68 in Wt: 242 lbs BSA: 2.34 m2 HR: 88 bpm BP: 124 / 61 mmHg Technical Quality: Fair Exam Date: 11/13/2021 7:07 AM Exam Location: [facility] Patient Status: Inpatient Admit Date: 11/12/2021 Staff Ordering Physician: Abbe Barron MD Court Commissioner: GINA Attending Provider: Jose Arteaga MD Referring Physician: Anderson KHOURY; Exam Type: CA echo dop color flow w con Study Info Complete two-dimensional, color flow and Doppler transthoracic echocardiogram is performed with contrast to opacify the left ventricle and to improve the deliniation of the left ventricle endocardial borders. Contrast/Agitated Saline Contrast/Ag. Saline: Definity Amount: 4.00 ml Summary 1. Mild LVH, borderline LV enlargement; severe global LV systolic dysfunction, ejection fraction measured at 30%; diastolic dysfunction is present. Paradoxical septal motion. Morb-my-jbsxplhn RV enlargement with hypokinesis. Moderate left and mild right atrial enlargement. Normal mitral valve structure, mild MR. Aortic valve appears calcified with restricted leaflet mobility or suboptimal opening due to LV systolic dysfunction; mild stenosis by Doppler; maximum velocity 1.6 m/sec, mean gradient 5 mmHg. Trace aortic regurgitation. Swtq-qz-tuxgmauo TR, mild pulmonary hypertension, RVSP 44 mmHg. Mild pulmonic regurgitation. Left Ventricle Left ventricular chamber dimension is mildly enlarged. Left ventricular systolic function is severely reduced, estimated at 25-30%. There is mildly increased left ventricular wall thickness. The left ventricular diastolic function is abnormal. Right Ventricle Right ventricular chamber dimension is mildly enlarged. Right ventricular systolic function is reduced. Left Atria Left atrial chamber dimension is moderately enlarged. Right Atria Right atrial chamber dimension is mildly enlarged. Aortic Valve There is trace aortic valve regurgitation. There is moderate aortic valve calcification. Pulmonic Valve The pulmonic valve is normal. There is mild pulmonic regurgitation. Mitral Valve The mitral valve has normal leaflets. There is mild mitral valve regurgitation. Tricuspid Valve The tricuspid valve leaflets are normal. There is mild to moderate tricuspid valve regurgitation. Mild pulmonary hypertension, estimated pulmonary arterial systolic pressure is 44 mmHg. Pericardium/Pleural The pericardium appears normal. Inferior Vena Cava Dilated inferior vena cava with >50% collapse upon inspiration consistent with elevated right atrial pressure, 10 mmHg. Aorta The aortic root size at the sinus of Valsalva is normal. Left Ventricular Outflow Tract Name Value Normal LVOT 2D LVOT Diameter 2.48 cm LVOT Doppler LVOT Peak Gradient 2 mmHg LVOT Mean Gradient 1 mmHg LVOT VTI 13.95 cm LVOT VTI/AV VTI Ratio 0.48 LVOT Stroke Volume 67.38 ml
[2021-11-13] MEDS: PERFLUTREN LIPID MICROSPHERES 1.5 ML VIAL DILUTED TO 10 ML TOTAL VOLUME IV PUSH (08:03)
--- NOTE | 2021-11-13 08:04 | IVDEFINITY ---
Prior to administration of IV Definity the patient was educated on the risks and benefits of the imaging enhancing agent including potential adverse side effects. The patient verbalized understanding. Allergies were verified. No exclusion criteria were identified and at least one of the following inclusion criteria were met: 1) physician request, 2) patient technically difficult to image (per the [place] [employer] Echocardi[employer] guidelines of two or more segments not discernable within the apical view), or 3) questionable left ventricular function. ?
[2021-11-13 08:09] LABS: Glucose Point of Care 189 mg/dl (65-105)
[2021-11-13] MEDS: ENOXAPARIN 40 MG/0.4 ML SYRINGE SUB-Q (08:52)
[2021-11-13] MEDS: INSULIN ASPART (*BKC) 100 UNITS/ML 6 UNITS SUB-Q ×3 (08:53→17:04)
[2021-11-13] MEDS: FUROSEMIDE INJ 40 MG/4 ML VIAL IV PUSH ×2 (08:56→17:06)
--- NOTE | 2021-11-13 09:19 | PM.CNCAR ---
Assessment and Plan Assessment and plan (1) Acute on chronic systolic heart failure: Code(s): I50.23 - Acute on chronic systolic (congestive) heart failure Status: Acute Assessment and Plan: 76 year old male with CAD status post remote PCI/stenting-intervention report not available; CHF with reduced ejection fraction (LVEF 40% with segmental wall motion abnormality from 06/15/2021 echo); PAD; paroxysmal atrial fibrillation/flutter, type 2 diabetes mellitus, history of falls. Patient presents with 10 day history of worsening lower extremity and scrotal swelling. Clinical presentation consistent with acute on chronic CHF with reduced ejection fraction. Last LVEF was about 40% with segmental wall motion abnormality. Patient has not been on diuretics as an outpatient. -continue IV diuresis with furosemide with close monitoring of electrolytes and renal function. Patient will need maintenance diuresis at discharge. -keep legs elevated. Venous duplex has been ordered, results are pending. -resume metoprolol succinate at a lower dose of 25 mg p.o. daily. Add ACEI or ARB, or preferably ARNI when renal function stabilizes. Also consider adding SGLT2 inhibitor. -repeat echocardiogram with Doppler has been ordered. (2) Atrial flutter with rapid ventricular response: Code(s): I48.92 - Unspecified atrial flutter Status: Acute Assessment and Plan: Patient has history of paroxysmal atrial fibrillation/flutter. Heart rates are slightly elevated. Resume metoprolol succinate. Due to recurrent falls, patient has not been deemed to be an appropriate candidate for chronic anticoagulation. His candidacy for left atrial appendage occlusion can be determined as an outpatient when patient follows up with his primary director asset. (3) CAD (coronary artery disease): Qualifiers: Coronary Disease-Associated Artery/Lesion type: [place] artery [place] vs. transplanted heart: [place] heart Associated angina: without angina Qualified Code(s): I25.10 - Atherosclerotic heart disease of [place] coronary artery without angina pectoris Code(s): I25.10 - Atherosclerotic heart disease of [place] coronary artery without angina pectoris Status: Chronic Assessment and Plan: No active ischemic symptoms at present. Troponins are minimally elevated and essentially flat in the setting of CHF exacerbation. Patient has history of remote PCI/stenting. Resume low-dose aspirin; resume beta-huan and statin. Further ischemic evaluation and/or surveillance for progression of CAD can be done as an outpatient. History of Present Illness History of Present Illness Consult date/time: 11/13/21 09:19 DATE OF CONSULT: 11/13/2021 REASON FOR CONSULT: Anasarca REQUESTING PHYSICIAN:Abbe Barron MD CHIEF COMPLAINT: Leg swelling HPI: 76 year old male with CAD status post remote PCI/stenting-intervention report not available; CHF with reduced ejection fraction (LVEF 40% with segmental wall motion abnormality from 06/15/2021 echo); PAD; paroxysmal atrial fibrillation/flutter, type 2 diabetes mellitus, history of falls. Patient pres[facility] to [facility] on 11/12/2021 with complaints leg and scrotal swelling for about 10 days. Patient has limited mobility at baseline, uses cane for walking. He states that he has not been able to move much in last several days due to worsening lower extremity swelling. He also had a fall with abrasions in his right forehead. Patient denies chest pain, dyspnea at rest, any recent palpitations, dizziness or syncope. He follows up with Dr. Acosta [facility] area. As per patient, he has not been on outpatient diuretics. He was previously seen by Cardiology on 06/14/2021 in the setting of syncope, atrial fibrillation with RVR, rhabdomyolysis. Due to fall risk, his anticoagulation with apixaban was discontinued. On this admission, EKG on presentation which I personally evaluated showed prob
[2021-11-13 09:23] LABS: Anion Gap 7 mmol/L (8-16); Blood Urea Nitrogen 32 mg/dL (9-20); Calcium 8.3 mg/dL (8.4-10.2); Carbon Dioxide 25 mmol/L (22-30); Chloride 101 mmol/L (98-107); Estimated CRCL calculation 50 ml/min; Estimated Glomerular Filt Rate 50; Glucose 226 mg/dL (65-110); Potassium 4.7 mmol/L (3.4-5.0); Sodium 133 mmol/L (137-145)
--- NOTE | 2021-11-13 10:49 | PM.IMPN ---
Progress Note: A&P Assessment and Plan (1) Acute on chronic systolic heart failure: Code(s): I50.23 - Acute on chronic systolic (congestive) heart failure Status: Acute Assessment and Plan: Admit to regular medical floor with telemetry Fluid restriction to 1500 cc daily Aggressive diuresis Daily intake and output Supportive care Continue to monitor Echocardiogram in a.m. (2) Anasarca: Code(s): R60.1 - Generalized edema Status: Acute Assessment and Plan: Secondary to congestive heart failure exacerbation (3) Paroxysmal atrial flutter: Code(s): I48.92 - Unspecified atrial flutter Status: Acute Assessment and Plan: Rate controlled (4) Spinal stenosis of lumbar region: Code(s): M48.061 - Spinal stenosis, lumbar region without neurogenic claudication Status: Acute Assessment and Plan: Status post spinal fusion surgery Homebound (5) CAD (coronary artery disease): Qualifiers: Coronary Disease-Associated Artery/Lesion type: [place] artery [place] vs. transplanted heart: [place] heart Associated angina: without angina Qualified Code(s): I25.10 - Atherosclerotic heart disease of [place] coronary artery without angina pectoris Code(s): I25.10 - Atherosclerotic heart disease of [place] coronary artery without angina pectoris Status: Chronic Assessment and Plan: EKG with no acute changes (6) DM2 (diabetes mellitus, type 2): Qualifiers: Diabetes mellitus termite treater helper insulin use: without half-way use Diabetes mellitus complication status: with other specified complication Qualified Code(s): E11.69 - Type 2 diabetes mellitus with other specified complication Code(s): E11.9 - Type 2 diabetes mellitus without complications Status: Chronic Assessment and Plan: On oral medications Will hold metformin Accu-Cheks AC and HS Insulin sliding scale as needed Subjective Date/time seen: 11/13/21 10:49 Interval history: I agree with current assessment and plan. Will continue to monitor. Objective Data Vital Signs Vital Signs: Vital Signs - 24 hr 11/12/21 14:21 11/12/21 14:42 11/12/21 17:46 Temperature 36.6 C Pulse Rate 107 H 110 H 83 Respiratory Rate 24 H 20 18 Blood Pressure 114/93 H 132/89 114/67 Pulse Oximetry 100 100 99 11/12/21 20:12 11/12/21 21:54 11/12/21 22:00 Temperature 36.8 C 35.8 C L Pulse Rate 88 99 75 Respiratory Rate 20 22 H 20 Blood Pressure 113/83 113/83 118/53 L Pulse Oximetry 97 97 100 11/13/21 00:00 11/13/21 04:00 11/13/21 04:19 Temperature 35.9 C L 35.9 C L 35.9 C L Pulse Rate 93 74 76 Respiratory Rate 20 20 Blood Pressure 100/49 L 124/61 124/61 Pulse Oximetry 100 98 98 11/13/21 08:00 Temperature Pulse Rate 104 H Respiratory Rate Blood Pressure Pulse Oximetry Intake/Output Intake/Output: Intake & Output 11/10/21 11/11/21 11/12/21 11/13/21 23:59 23:59 23:59 23:59 Intake Total 590 Output Total 1400 Balance -810 Meds/Results Medications: Active Medications Generic Name Dose Route Start Last Admin Trade Name Freq PRN Reason Stop Dose Admin Acetaminophen 1,000 mg 11/13/21 00:55 11/13/21 01:24 Acetaminophen 500 Mg Tablet PO 1,000 mg Q6H PRN Administration Mild Pain (1-3) or Fever Aspirin 81 mg 11/14/21 09:00 Aspirin 81 Mg Enteric Tablet PO QAM [facility] Atorvastatin Calcium 40 mg 11/13/21 21:00 Atorvastatin 40 Mg Tablet PO HS [facility] Enoxaparin Sodium 40 mg 11/13/21 09:00 11/13/21 08:52 Enoxaparin 40 Mg/0.4 Ml Syringe SUB-Q 40 mg DAILY CARLITOS Administration Furosemide 40 mg 11/13/21 09:00 11/13/21 08:56 Furosemide Inj 40 Mg/4 Ml Vial IV PUSH 40 mg BID CARLITOS Administration Insulin Aspart 6 units 11/13/21 08:00 11/13/21 08:53 Insulin Aspart (*Bkc) 100 Units/Ml 0.05 units/kg (6 units) 6 units SUB-Q Administration TIDWM [facility] Melatonin 3 mg 11/13/21 01:00
[2021-11-13 11:50] LABS: Glucose Point of Care 137 mg/dl (65-105)
[2021-11-13 16:30] LABS: Glucose Point of Care 111 mg/dl (65-105)
[2021-11-13] MEDS: ATORVASTATIN 40 MG TABLET PO (20:12)
[2021-11-13 20:27] LABS: Glucose Point of Care 101 mg/dl (65-105)
[2021-11-14] VITALS (14 sets, daily range): BP systolic 91–136; BP diastolic 67–99; PULSE 79–93; RESP 16–19; TEMP 36.4–36.6; O2SAT 93–100
[2021-11-14 05:49] LABS: Hematocrit 31.4 % (42.0-52.0); Hemoglobin 9.4 g/dL (14.0-18.0); Mean Corpuscular HGB Conc 29.9 g/dl (32-36); Mean Corpuscular Hemoglobin 27.4 pg (26-34); Mean Corpuscular Volume 91.5 fl (80-100); Mean Platelet Volume 9.7 fl (7.4-10.4); Platelet Count Result 228 k/mm3 (150-375); Red Blood Count 3.43 M/mm3 (4.6-6.20); Red Cell Distribution Width 16.1 % (11.5-14.5); White Blood Count 7.1 K/mm3 (4.5-10.0)
[2021-11-14 06:23] LABS: Anion Gap 5 mmol/L (8-16); Blood Urea Nitrogen 34 mg/dL (9-20); Calcium 8.6 mg/dL (8.4-10.2); Carbon Dioxide 32 mmol/L (22-30); Chloride 100 mmol/L (98-107); Estimated CRCL calculation 50 ml/min; Estimated Glomerular Filt Rate 50; Glucose 127 mg/dL (65-110); Potassium 3.5 mmol/L (3.4-5.0); Sodium 137 mmol/L (137-145)
[2021-11-14 08:10] LABS: Glucose Point of Care 189 mg/dl (65-105)
--- NOTE | 2021-11-14 08:29 | P.PN_ITS ---
Progress Note: A&P Assessment and Plan (1) Acute on chronic systolic heart failure: Code(s): I50.23 - Acute on chronic systolic (congestive) heart failure Status: Acute Assessment and Plan: * [id number]>todays pending * CHF with reduced ejection fraction (LVEF 40% with segmental wall motion abnormality from 06/15/2021 echo) on 06/15/2021 * continue telemetry * continue Fluid restriction to 1500 cc daily * cardiology consulted * continue lasix , closely monitor electrolytes and renal function * Pt will maintenance diuresis day of discharge per cardio * Continue metoprolol 25 mg daily. ACEI and ARB or preferably ARNI .Also consider adding SGLT2 inhibitor.will be added once renal function improve per cardio * intake and output reviewed -3780 * Supportive care * Continue to monitor * Repeat Echocardiogram pending * Venous Doppler no DVTs indicated * Chest x-ray indicates small bilateral pleural effusion (2) Anasarca: Code(s): R60.1 - Generalized edema Status: Acute Assessment and Plan: * Secondary to congestive heart failure exacerbation (3) Paroxysmal atrial flutter: Code(s): I48.92 - Unspecified atrial flutter Status: Acute Assessment and Plan: * Rate controlled * Continue metoprolol 25 mg daily * hx of fall , not candidate for anticoagulation * ekg omn admission ATRIAL FLUTTER/TACHYCARDIA WITH RAPID VENTRICULAR RESPONSE with hr 109 currently * trop 0.035>0.035>0.034 * Cardiology consulted. (4) Spinal stenosis of lumbar region: Code(s): M48.061 - Spinal stenosis, lumbar region without neurogenic claudication Status: Acute Assessment and Plan: * Status post spinal fusion surgery * F/u with pcp (5) CAD (coronary artery disease): Qualifiers: Associated angina: without angina Coronary Disease-Associated Artery/Lesion type: [place] artery [place] vs. transplanted heart: [place] heart Qualified Code(s): I25.10 - Atherosclerotic heart disease of [place] coronary artery without angina pectoris Code(s): I25.10 - Atherosclerotic heart disease of [place] coronary artery without angina pectoris Status: Chronic Assessment and Plan: * continue statin beta huan and ASA * hx of stent placement * f/u with primary glove parts inspector (6) DM2 (diabetes mellitus, type 2): Qualifiers: Diabetes mellitus complication status: with other specified complication Diabetes mellitus ferry terminal supervisor insulin use: without prison use Qualified Code(s): E11.69 - Type 2 diabetes mellitus with other specified complication Code(s): E11.9 - Type 2 diabetes mellitus without complications Status: Chronic Assessment and Plan: * bs 189 * continue hypoglycemia medication, accuchecks, and sliding scle * Will hold metformin * will adjust medications as needed (7) PER (acute kidney injury): Code(s): N17.9 - Acute kidney failure, unspecified Status: Acute Assessment and Plan: * BUN/CR 32/1.40>34>1.40 base line appear to be at 30-32/100-1.30 * Will closely monitor renal function due to the use of diuretics * Renal dose medication * Avoid nephrotoxic agent * CMP in a.m. Subjective Date/time seen: 11/14/21 08:29 patient notes that his groin area remains swollen, he also pointed out that his lower extremities are swollen. Patient notes that he did not sleep well overnight. Patient also notes that he has chronic pain but declines pain medication because he has a higher threshold for pain. Patient appears to be eating his meals fine. Is also having bowel
--- NOTE | 2021-11-14 08:29 | WPDPN ---
Progress Note: A&P Assessment and Plan (1) Acute on chronic systolic heart failure: Code(s): I50.23 - Acute on chronic systolic (congestive) heart failure Status: Acute Assessment and Plan: [id number]>todays pending CHF with reduced ejection fraction (LVEF 40% with segmental wall motion abnormality from 06/15/2021 echo) on 06/15/2021 continue telemetry continue Fluid restriction to 1500 cc daily cardiology consulted continue lasix , closely monitor electrolytes and renal function Pt will maintenance diuresis day of discharge per cardio Continue metoprolol 25 mg daily. ACEI and ARB or preferably ARNI .Also consider adding SGLT2 inhibitor.will be added once renal function improve per cardio intake and output reviewed -3780 Supportive care Continue to monitor Repeat Echocardiogram pending Venous Doppler no DVTs indicated Chest x-ray indicates small bilateral pleural effusion (2) Anasarca: Code(s): R60.1 - Generalized edema Status: Acute Assessment and Plan: Secondary to congestive heart failure exacerbation (3) Paroxysmal atrial flutter: Code(s): I48.92 - Unspecified atrial flutter Status: Acute Assessment and Plan: Rate controlled Continue metoprolol 25 mg daily hx of fall , not candidate for anticoagulation ekg omn admission ATRIAL FLUTTER/TACHYCARDIA WITH RAPID VENTRICULAR RESPONSE with hr 109 currently trop 0.035>0.035>0.034 Cardiology consulted. (4) Spinal stenosis of lumbar region: Code(s): M48.061 - Spinal stenosis, lumbar region without neurogenic claudication Status: Acute Assessment and Plan: Status post spinal fusion surgery F/u with pcp (5) CAD (coronary artery disease): Qualifiers: Associated angina: without angina Coronary Disease-Associated Artery/Lesion type: [place] artery [place] vs. transplanted heart: [place] heart Qualified Code(s): I25.10 - Atherosclerotic heart disease of [place] coronary artery without angina pectoris Code(s): I25.10 - Atherosclerotic heart disease of [place] coronary artery without angina pectoris Status: Chronic Assessment and Plan: continue statin beta huan and ASA hx of stent placement f/u with primary prism measurer (6) DM2 (diabetes mellitus, type 2): Qualifiers: Diabetes mellitus complication status: with other specified complication Diabetes mellitus snf insulin use: without snf use Qualified Code(s): E11.69 - Type 2 diabetes mellitus with other specified complication Code(s): E11.9 - Type 2 diabetes mellitus without complications Status: Chronic Assessment and Plan: bs 189 continue hypoglycemia medication, accuchecks, and sliding scle Will hold metformin will adjust medications as needed (7) PER (acute kidney injury): Code(s): N17.9 - Acute kidney failure, unspecified Status: Acute Assessment and Plan: BUN/CR 32/1.40>34>1.40 base line appear to be at 30-32/100-1.30 Will closely monitor renal function due to the use of diuretics Renal dose medication Avoid nephrotoxic agent CMP in a.m. Subjective Date/time seen: 11/14/21 08:29 patient notes that his groin area remains swollen, he also pointed out that his lower extremities are swollen. Patient notes that he did not sleep well overnight. Patient also notes that he has chronic pain but declines pain medication because he has a higher threshold for pain. Patient appears to be eating his meals fine. Is also having bowel movement. He did note slight shortness of breath chest x-ray pending. Appears to be overall unhappy but notes that his condition has improved. The patient denies CP, palpitation, extremity numbness, lightheadedness, dizziness, constipation, diarrhea, chills, or fever. Review of Systems Review of Systems: All systems reviewed & are unremarkable except as noted in HPI and below Exam Narrative: GEN
[2021-11-14 09:04] LABS: NT Pro B Type Natriuretic Pept 3190 pg/mL (5-100)
[2021-11-14] MEDS: INSULIN ASPART (*BKC) 100 UNITS/ML 6 UNITS SUB-Q ×3 (09:12→17:17)
[2021-11-14] MEDS: METOPROLOL SUCCINATE EXT REL 25 MG TABCR PO (09:17)
[2021-11-14] MEDS: ASPIRIN 81 MG ENTERIC TABLET PO (09:17)
[2021-11-14] MEDS: FUROSEMIDE INJ 40 MG/4 ML VIAL IV PUSH ×2 (09:18→17:18)
[2021-11-14] MEDS: ENOXAPARIN 40 MG/0.4 ML SYRINGE SUB-Q (09:18)
[2021-11-14 11:32] LABS: Glucose Point of Care 103 mg/dl (65-105)
--- NOTE | 2021-11-14 11:34 | PM.PNCARD ---
Progress Note: A&P Assessment and Plan (1) Acute on chronic systolic heart failure: Code(s): I50.23 - Acute on chronic systolic (congestive) heart failure Status: Acute Assessment and Plan: 76 year old male with CAD status post remote PCI/stenting-intervention report not available; CHF with reduced ejection fraction, PAD; paroxysmal atrial fibrillation/flutter, type 2 diabetes mellitus, history of falls. Patient presented with 10 day history of worsening lower extremity and scrotal swelling. Clinical presentation consistent with acute on chronic CHF with reduced ejection fraction. Echo during this hospitalization which I personally evaluated showed biventricular failure, with LVEF about 30%. -continue IV diuresis with furosemide with close monitoring of electrolytes and renal function. Patient will need maintenance diuresis at discharge. -continue metoprolol succinate at a lower dose of 25 mg p.o. daily. Add ACEI or ARB, or preferably ARNI when renal function stabilizes. Also consider adding SGLT2 inhibitor in near future. - keep legs elevated as much as possible. No DVT on venous duplex. DVT prophylaxis. . (2) Atrial flutter with rapid ventricular response: Code(s): I48.92 - Unspecified atrial flutter Status: Acute Assessment and Plan: Patient has history of paroxysmal atrial fibrillation/flutter. Heart rates improved with metoprolol succinate. Due to recurrent falls, patient has not been deemed to be an appropriate candidate for chronic anticoagulation. He had a fall before hospitalization and has bruising and abrasions in the right forehead. His candidacy for left atrial appendage occlusion can be determined as an outpatient when patient follows up with his primary admeasurer. (3) CAD (coronary artery disease): Qualifiers: Associated angina: without angina Coronary Disease-Associated Artery/Lesion type: [place] artery [place] vs. transplanted heart: [place] heart Qualified Code(s): I25.10 - Atherosclerotic heart disease of [place] coronary artery without angina pectoris Code(s): I25.10 - Atherosclerotic heart disease of [place] coronary artery without angina pectoris Status: Chronic Assessment and Plan: No active ischemic symptoms at present. Troponins are minimally elevated and essentially flat in the setting of CHF exacerbation. Patient has history of remote PCI/stenting. Resume low-dose aspirin; beta-huan and statin. Further ischemic evaluation for progression of CAD can be considered as an outpatient. Subjective Date/time seen: 11/14/21 11:34 Date of Service: 11/14/2021 Interval history: Patient remains short of breath and continues to have significant swelling in the lower extremities and scrotum. Denies chest pain. Exam Narrative: PHYSICAL EXAMINATION: GENERAL: Alert, oriented, no acute distress; sitting in the chair MENTAL STATUS: Irritable EYES: Extraocular movements intact, no pallor EARS: External ears appear normal, hearing grossly normal NOSE: Normal and patent, no discharge MOUTH: Mucous membranes moist, tongue normal NECK: Supple, JVD CHEST: Scattered crackles HEART: Normal rate, irregular rhythm ABDOMEN: Soft, nontender NEUROLOGICAL: Alert, oriented, normal speech MUSCULOSKELETAL: no amputation EXTREMITIES: Bilateral pedal edema extending to the knees; scrotal edema present SKIN: Erythema bilateral lower extremities; bruising and abrasions right forehead PSYCHIATRIC: Irritable mood Objective Data Vital Signs Vital Signs: Vital Signs - 24 hr 11/13/21 12:00 11/13/21 14:00 11/13/21 16:00 Temperature 36.1 C L 36.2 C L Pulse Rate 89 85 84 Respiratory Rate 20 19 Blood Pressure 103/56 L 108/77 Pulse Oximetry 100 100 11/13/21 18:08 11/13/21 19:23 11/13/21 20:00 Temperature 36.4 C L 36.6 C Pulse Rate 89 87 81 Respiratory Rate 20 17 Blood Pressure 112/53 L 101/75 Pulse Oximetry 97 99 11/13
[2021-11-14] MEDS: GABAPENTIN 300 MG CAPSULE 600 MG PO ×2 (15:17→21:03)
[2021-11-14 16:37] LABS: Glucose Point of Care 118 mg/dl (65-105)
[2021-11-14] MEDS: MELATONIN 3 MG TABLET PO (21:03)
[2021-11-14] MEDS: ATORVASTATIN 40 MG TABLET PO (21:04)
[2021-11-14 21:43] LABS: Glucose Point of Care 116 mg/dl (65-105)
[2021-11-14] MEDS: ACETAMINOPHEN 500 MG TABLET 1000 MG PO (21:54)
[2021-11-15] VITALS (12 sets, daily range): BP systolic 109–120; BP diastolic 54–87; PULSE 79–93; RESP 14–20; TEMP 36.1–36.6; O2SAT 94–100
[2021-11-15] MEDS: GABAPENTIN 300 MG CAPSULE 600 MG PO ×3 (05:03→21:09)
[2021-11-15 05:37] LABS: Hematocrit 32.6 % (42.0-52.0); Hemoglobin 9.6 g/dL (14.0-18.0); Mean Corpuscular HGB Conc 29.4 g/dl (32-36); Mean Corpuscular Hemoglobin 27.7 pg (26-34); Mean Corpuscular Volume 94.2 fl (80-100); Mean Platelet Volume 9.7 fl (7.4-10.4); Platelet Count Result 216 k/mm3 (150-375); Red Blood Count 3.46 M/mm3 (4.6-6.20); Red Cell Distribution Width 16.2 % (11.5-14.5); White Blood Count 6.7 K/mm3 (4.5-10.0)
[2021-11-15 05:54] LABS: Alanine Aminotransferase 15 U/L (4-50); Albumin Level 3.5 g/dL (3.5-5.1); Alkaline Phosphatase 95 U/L (38-126); Anion Gap 6 mmol/L (8-16); Aspartate Amino Transferase 21 U/L (17-59); Bilirubin,Total 1.3 mg/dL (0.2-1.3); Blood Urea Nitrogen 38 mg/dL (9-20); Calcium 8.2 mg/dL (8.4-10.2); Carbon Dioxide 30 mmol/L (22-30); Chloride 98 mmol/L (98-107); Estimated CRCL calculation 47 ml/min; Estimated Glomerular Filt Rate 46; Glucose 259 mg/dL (65-110); Potassium 3.5 mmol/L (3.4-5.0); Sodium 134 mmol/L (137-145)
[2021-11-15 05:58] LABS: NT Pro B Type Natriuretic Pept 3350 pg/mL (5-100)
--- NOTE | 2021-11-15 08:23 | PM.PNCARD ---
Progress Note: A&P Assessment and Plan (1) Acute on chronic systolic heart failure: Code(s): I50.23 - Acute on chronic systolic (congestive) heart failure Status: Acute Assessment and Plan: 76 year old male with CAD status post remote PCI/stenting-intervention report not available; CHF with reduced ejection fraction, PAD; paroxysmal atrial fibrillation/flutter, type 2 diabetes mellitus, history of falls. Patient presented with 10 day history of worsening lower extremity and scrotal swelling. Clinical presentation consistent with acute on chronic CHF with reduced ejection fraction. Echo from this admission shows LVEF 30%. Improving, but still c/o shortness of breath and still has pitting edema. Continue IV furosemide today with close monitoring of renal function and electrolytes GDMT for HFrEF with metoprolol, addition of ARNI when renal function stabilizes, addition of SGLT2 inhibitor when volume status is stable. Add spironolactone Fluid restriction Compression stockings, keep feet elevated as much as possible Daily weights Accurate I&O (2) Atrial flutter with rapid ventricular response: Code(s): I48.92 - Unspecified atrial flutter Status: Acute Assessment and Plan: Patient has history of paroxysmal atrial fibrillation/flutter. Heart rates improved with metoprolol succinate. Due to recurrent falls, patient has not been deemed to be an appropriate candidate for chronic anticoagulation. He had a fall before hospitalization and has bruising and abrasions in the right forehead. His candidacy for left atrial appendage occlusion can be determined as an outpatient when patient follows up with his primary iron molder helper. (3) CAD (coronary artery disease): Qualifiers: Associated angina: without angina Coronary Disease-Associated Artery/Lesion type: [place] artery [place] vs. transplanted heart: [place] heart Qualified Code(s): I25.10 - Atherosclerotic heart disease of [place] coronary artery without angina pectoris Code(s): I25.10 - Atherosclerotic heart disease of [place] coronary artery without angina pectoris Status: Chronic Assessment and Plan: No active ischemic symptoms at present. Troponins are minimally elevated and essentially flat in the setting of CHF exacerbation. Patient has history of remote PCI/stenting. Resume low-dose aspirin; beta-huan and statin. Further ischemic evaluation for progression of CAD can be considered as an outpatient. Subjective Date/time seen: 11/15/21 08:23 Cardiology follow up for CHF Feeling better since admission. Still complaining of some shortness of breath. Has questions regarding his diagnosis of heart failure and treatment plan. Review of Systems Review of Systems: All systems reviewed & are unremarkable except as noted in HPI and below Exam Const: General: comfortable and no acute distress Orientation/consciousness: patient oriented x3 Eyes: General: appearance abnormal, both eyes (R periorbital contusion ) Pupils: Equal, round and reactive pupils present Neck: Neck: normal visual inspection and no JVD Resp: Effort & Inspection: normal respiratory effort Auscultation: clear to auscultation bilaterally, no crackles and no rales Cardio: Rate: regular rate Rhythm: abnormal rhythm irregularly irregular Heart sounds: no murmurs Peripheral pulses: Peripheral pulses 2+ throughout GI: Inspection: distended Auscultation: normal bowel sounds : Scrotum: edematous Urinary Catheter: Urinary Catheter: patent and draining and urine clear Neuro: General: patient oriented x3 Extrem: General: edema bilateral Psych: Appearance: grossly normal Mental Status: mental status grossly normal Affect: Irritable affect present Objective Data Vital Signs Vital Signs: Vital Signs - 24 hr 11/14/21 09:00 11/14/21 09:17 11/14/21 09:20 Temperature Pulse Rate 90 90 Respiratory Rate Blood Pressure Pulse Ox
[2021-11-15 08:39] LABS: Glucose Point of Care 200 mg/dl (65-105)
[2021-11-15] MEDS: INSULIN ASPART (*BKC) 100 UNITS/ML 6 UNITS SUB-Q ×2 (09:32→12:15)
[2021-11-15] MEDS: FUROSEMIDE INJ 40 MG/4 ML VIAL IV PUSH ×2 (09:33→17:14)
[2021-11-15] MEDS: ASPIRIN 81 MG ENTERIC TABLET PO (09:33)
[2021-11-15] MEDS: METOPROLOL SUCCINATE EXT REL 25 MG TABCR PO (09:33)
[2021-11-15] MEDS: ENOXAPARIN 40 MG/0.4 ML SYRINGE SUB-Q (09:33)
--- NOTE | 2021-11-15 11:08 | PCCCNOTE ---
On 11/15/21, the student, [Elida Cruz ], provided care and completed [facility] documentation on this patient. I have reviewed the student's documentation and agree with the findings.
--- NOTE | 2021-11-15 12:05 | PM.IMPN ---
Progress Note: A&P Assessment and Plan (1) Acute on chronic systolic heart failure: Code(s): I50.23 - Acute on chronic systolic (congestive) heart failure Status: Acute Assessment and Plan: [id number]>3190-->3350 today CHF with reduced ejection fraction (LVEF 40% with segmental wall motion abnormality from 06/15/2021 echo) on 06/15/2021 continue telemetry continue Fluid restriction to 1500 cc daily cardiology consulted, recommendations appreciated continue Lasix , closely monitor electrolytes and renal function. spironolactone added per cardiology Continue metoprolol 25 mg daily. ACEI and ARB or preferably ARNI. Also consider adding SGLT2 inhibitor.will be added once renal function improve per cardio Monitor I/O Daily weights Continue to monitor Repeat Echocardiogram-->EF 30% Venous Doppler no DVTs indicated Chest x-ray indicates small bilateral pleural effusion (2) Anasarca: Code(s): R60.1 - Generalized edema Status: Acute Assessment and Plan: Secondary to congestive heart failure exacerbation (3) Paroxysmal atrial flutter: Code(s): I48.92 - Unspecified atrial flutter Status: Acute Assessment and Plan: Rate controlled Continue metoprolol 25 mg daily hx of fall , not candidate for anticoagulation ekg omn admission ATRIAL FLUTTER/TACHYCARDIA WITH RAPID VENTRICULAR RESPONSE with hr 109 currently trop 0.035>0.035>0.034 Cardiology consulted Tele monitoring (4) Spinal stenosis of lumbar region: Code(s): M48.061 - Spinal stenosis, lumbar region without neurogenic claudication Status: Acute Assessment and Plan: Status post spinal fusion surgery F/u with pcp (5) CAD (coronary artery disease): Qualifiers: Coronary Disease-Associated Artery/Lesion type: [place] artery [place] vs. transplanted heart: [place] heart Associated angina: without angina Qualified Code(s): I25.10 - Atherosclerotic heart disease of [place] coronary artery without angina pectoris Code(s): I25.10 - Atherosclerotic heart disease of [place] coronary artery without angina pectoris Status: Chronic Assessment and Plan: continue statin. BB, ASA hx of stent placement f/u with primary dental assistant teacher (6) DM2 (diabetes mellitus, type 2): Qualifiers: Diabetes mellitus lead level designer insulin use: without lead level designer use Diabetes mellitus complication status: with other specified complication Qualified Code(s): E11.69 - Type 2 diabetes mellitus with other specified complication Code(s): E11.9 - Type 2 diabetes mellitus without complications Status: Chronic Assessment and Plan: Last Hgb A1c 7.2 06/16/21, will check current Hold orals continue hypoglycemia medication, accuchecks, and SSI Monitor (7) PER (acute kidney injury): Code(s): N17.9 - Acute kidney failure, unspecified Status: Acute Assessment and Plan: BUN/CR 32/1.40>34/1.40-->38/1.5 today base line appear to be at 30-32/100-1.30 Will closely monitor renal function due to the use of diuretics Renally dose medication Avoid nephrotoxic agents Monitor Subjective Date/time seen: 11/15/21 12:05 Interval history: Pt seen and evaluated; labs, vs, diagnostic results, consult notes reviewed; per nursing staff pt had a fall this morning without injury; the pt states that he was trying to get back in bed; he expresses that he is upset because of the current fluid restriction order Review of Systems Review of Systems: All systems reviewed & are unremarkable except as noted in HPI and below Exam Const: General: no acute distress, alert and awake Orientation/consciousness: patient oriented x3 HENMT: Head: normocephalic and atraumatic Ears: hearing grossly normal bilaterally and external ears normal Face and sinus: face symmetric Mouth: Yes Normal oral and palatal mucosa present Eyes: EOM: EOMs intact bilaterally Neck: Neck: full ROM, trachea midline and no JVD
[2021-11-15 12:07] LABS: Glucose Point of Care 124 mg/dl (65-105)
[2021-11-15 16:27] LABS: Glucose Point of Care 81 mg/dl (65-105)
[2021-11-15] MEDS: INSULIN ASPART (*BKC) 100 UNITS/ML SUB-Q (17:13)
[2021-11-15] MEDS: MELATONIN 3 MG TABLET PO (21:08)
[2021-11-15] MEDS: ATORVASTATIN 40 MG TABLET PO (21:09)
[2021-11-15] MEDS: ACETAMINOPHEN 500 MG TABLET 1000 MG PO (21:09)
[2021-11-15 21:33] LABS: Glucose Point of Care 192 mg/dl (65-105)
[2021-11-16] VITALS (12 sets, daily range): BP systolic 111–129; BP diastolic 55–74; PULSE 68–93; RESP 18–20; TEMP 35.9–36.4; O2SAT 94–100
[2021-11-16] MEDS: ACETAMINOPHEN 500 MG TABLET 1000 MG PO ×2 (05:07→21:02)
[2021-11-16] MEDS: GABAPENTIN 300 MG CAPSULE 600 MG PO ×3 (05:07→20:37)
[2021-11-16 05:53] LABS: Hemoglobin 9.6 g/dL (14.0-18.0); Mean Corpuscular HGB Conc 29.1 g/dl (32-36); Mean Corpuscular Hemoglobin 26.8 pg (26-34); Mean Corpuscular Volume 92.2 fl (80-100); Mean Platelet Volume 9.9 fl (7.4-10.4); Platelet Count Result 224 k/mm3 (150-375); Red Blood Count 3.58 M/mm3 (4.6-6.20); Red Cell Distribution Width 15.9 % (11.5-14.5); White Blood Count 7.2 K/mm3 (4.5-10.0)
[2021-11-16 06:06] LABS: Hemoglobin A1C 7.5 % (<5.7)
[2021-11-16 06:08] LABS: Anion Gap 6 mmol/L (8-16); Blood Urea Nitrogen 41 mg/dL (9-20); Calcium 8.3 mg/dL (8.4-10.2); Carbon Dioxide 33 mmol/L (22-30); Chloride 99 mmol/L (98-107); Estimated CRCL calculation 47 ml/min; Estimated Glomerular Filt Rate 46; Glucose 187 mg/dL (65-110); Potassium 3.6 mmol/L (3.4-5.0); Sodium 138 mmol/L (137-145)
[2021-11-16 08:32] LABS: Glucose Point of Care 146 mg/dl (65-105)
--- NOTE | 2021-11-16 08:47 | PM.PNCARD ---
Progress Note: A&P Assessment and Plan (1) Acute on chronic systolic heart failure: Code(s): I50.23 - Acute on chronic systolic (congestive) heart failure Status: Acute Assessment and Plan: 76 year old male with CAD status post remote PCI/stenting-intervention report not available; CHF with reduced ejection fraction, PAD; paroxysmal atrial fibrillation/flutter, type 2 diabetes mellitus, history of falls. Patient presented with 10 day history of worsening lower extremity and scrotal swelling. Clinical presentation consistent with acute on chronic CHF with reduced ejection fraction. Echo from this admission shows LVEF 30%. Improving, but still has some edema...Continue IV furosemide today with close monitoring of renal function and electrolytes GDMT for HFrEF with metoprolol, spironolactone. Addition of ARNI when renal function stabilizes, addition of SGLT2 inhibitor when volume status is stable. Fluid restriction Compression stockings, keep feet elevated as much as possible Daily weights Accurate I&O (2) Atrial flutter with rapid ventricular response: Code(s): I48.92 - Unspecified atrial flutter Status: Acute Assessment and Plan: Patient has history of paroxysmal atrial fibrillation/flutter. Heart rates improved with metoprolol succinate. Due to recurrent falls, patient has not been deemed to be an appropriate candidate for chronic anticoagulation. He had a fall before hospitalization and has bruising and abrasions in the right forehead. His candidacy for left atrial appendage occlusion can be determined as an outpatient when patient follows up with his primary rn diabetes. (3) CAD (coronary artery disease): Qualifiers: Associated angina: without angina Coronary Disease-Associated Artery/Lesion type: [place] artery [place] vs. transplanted heart: [place] heart Qualified Code(s): I25.10 - Atherosclerotic heart disease of [place] coronary artery without angina pectoris Code(s): I25.10 - Atherosclerotic heart disease of [place] coronary artery without angina pectoris Status: Chronic Assessment and Plan: No active ischemic symptoms at present. Troponins are minimally elevated and essentially flat in the setting of CHF exacerbation. Patient has history of remote PCI/stenting. Resume low-dose aspirin; beta-huan and statin. Further ischemic evaluation for progression of CAD can be considered as an outpatient. Subjective Date/time seen: 11/16/21 08:47 cardiology follow-up for CHF Feels about the same today. He is not complaining of shortness of breath he does say that he has a cough. Denies any chest pain palpitations. On telemetry is having some ventricular bigeminy, frequent PVC's and some short runs of NSVT Review of Systems Review of Systems: All systems reviewed & are unremarkable except as noted in HPI and below Exam Const: General: comfortable and no acute distress Orientation/consciousness: patient oriented x3 Eyes: General: appearance abnormal, both eyes (R periorbital contusion ) Pupils: Equal, round and reactive pupils present Neck: Neck: normal visual inspection and no JVD Resp: Effort & Inspection: normal respiratory effort Auscultation: clear to auscultation bilaterally, no crackles and no rales Cardio: Rate: regular rate Rhythm: abnormal rhythm irregularly irregular Heart sounds: no murmurs Peripheral pulses: Peripheral pulses 2+ throughout GI: Inspection: distended Auscultation: normal bowel sounds : Scrotum: edematous Urinary Catheter: Urinary Catheter: patent and draining and urine clear Neuro: General: patient oriented x3 Cranial nerves: Yes Equal, round and reactive pupils present Extrem: General: edema bilateral Psych: Appearance: grossly normal Mental Status: mental status grossly normal Affect: Irritable affect present Objective Data Vital Signs Vital Signs: Vital Signs - 24 hr 11/15/21 10:00 11/15/21 10:2
[2021-11-16] MEDS: ASPIRIN 81 MG ENTERIC TABLET PO (09:14)
[2021-11-16] MEDS: ENOXAPARIN 40 MG/0.4 ML SYRINGE SUB-Q (09:15)
[2021-11-16] MEDS: SPIRONOLACTONE 25 MG TABLET PO (09:15)
[2021-11-16] MEDS: METOPROLOL SUCCINATE EXT REL 25 MG TABCR PO (09:15)
[2021-11-16] MEDS: FUROSEMIDE INJ 40 MG/4 ML VIAL IV PUSH ×2 (09:15→16:42)
[2021-11-16] MEDS: INSULIN ASPART (*BKC) 100 UNITS/ML 6 UNITS SUB-Q ×3 (09:24→16:41)
[2021-11-16 10:26] LABS: Magnesium 2.1 mg/dL (1.6-2.3)
[2021-11-16 11:28] LABS: Hematocrit 35.5 % (42.0-52.0); Hemoglobin 10.3 g/dL (14.0-18.0); Mean Corpuscular Hemoglobin 27.6 pg (26-34); Mean Corpuscular Volume 95.2 fl (80-100); Platelet Count Result 226 k/mm3 (150-375); Red Blood Count 3.73 M/mm3 (4.6-6.20); Red Cell Distribution Width 16.2 % (11.5-14.5); White Blood Count 7.7 K/mm3 (4.5-10.0)
[2021-11-16 11:36] LABS: Glucose Point of Care 205 mg/dl (65-105)
[2021-11-16] MEDS: POTASSIUM CHLORIDE 20 MEQ TABLET 40 MEQ PO (11:43)
--- NOTE | 2021-11-16 11:43 | PM.IMPN ---
Progress Note: A&P Assessment and Plan (1) Acute on chronic systolic heart failure: Code(s): I50.23 - Acute on chronic systolic (congestive) heart failure Status: Acute Assessment and Plan: [id number]>3940>3190-->3350 today CHF with reduced ejection fraction (LVEF 40% with segmental wall motion abnormality from 06/15/2021 echo) on 06/15/2021 continue telemetry continue Fluid restriction to 1500 cc daily cardiology consulted, recommendations appreciated continue Lasix , closely monitor electrolytes and renal function. spironolactone added per cardiology Continue metoprolol 25 mg daily. ACEI and ARB or preferably ARNI. Also consider adding SGLT2 inhibitor.will be added once renal function improve per cardio Monitor I/O Daily weights Continue to monitor Repeat Echocardiogram-->EF 30% Venous Doppler no DVTs indicated Chest x-ray indicates small bilateral pleural effusion 11/16/2021 Interval history: patient is 76-year-old male presented with shortness of breath is found to have acute on chronic systolic congestive Heart failure with ejection fraction of 30% patient is seen by Cardiology patient being diuresed with Lasix 40 mg IV b.i.d., also metoprolol, spironolactone, seen by roaster operator and added 1 time dose metolazone 2.5 mg, patient is sitting in the chair eating his lunch is feeling much better not a short of breath as when he arrived his lower extremity edema is also improving, patient also participated in PT and OT will continue to monitor and further recommendation to follow. (2) Anasarca: Code(s): R60.1 - Generalized edema Status: Acute Assessment and Plan: Secondary to congestive heart failure exacerbation (3) Paroxysmal atrial flutter: Code(s): I48.92 - Unspecified atrial flutter Status: Acute Assessment and Plan: Rate controlled Continue metoprolol 25 mg daily hx of fall , not candidate for anticoagulation ekg omn admission ATRIAL FLUTTER/TACHYCARDIA WITH RAPID VENTRICULAR RESPONSE with hr 109 currently trop 0.035>0.035>0.034 Cardiology consulted Tele monitoring (4) Spinal stenosis of lumbar region: Code(s): M48.061 - Spinal stenosis, lumbar region without neurogenic claudication Status: Acute Assessment and Plan: Status post spinal fusion surgery F/u with pcp (5) CAD (coronary artery disease): Qualifiers: Associated angina: without angina Coronary Disease-Associated Artery/Lesion type: [place] artery [place] vs. transplanted heart: [place] heart Qualified Code(s): I25.10 - Atherosclerotic heart disease of [place] coronary artery without angina pectoris Code(s): I25.10 - Atherosclerotic heart disease of [place] coronary artery without angina pectoris Status: Chronic Assessment and Plan: continue statin. BB, ASA hx of stent placement f/u with primary roaster operator (6) DM2 (diabetes mellitus, type 2): Qualifiers: Diabetes mellitus complication status: with other specified complication Diabetes mellitus mcc insulin use: without mcc use Qualified Code(s): E11.69 - Type 2 diabetes mellitus with other specified complication Code(s): E11.9 - Type 2 diabetes mellitus without complications Status: Chronic Assessment and Plan: Last Hgb A1c 7.2 06/16/21, will check current Hold orals continue hypoglycemia medication, accuchecks, and SSI Monitor (7) PER (acute kidney injury): Code(s): N17.9 - Acute kidney failure, unspecified Status: Acute Assessment and Plan: BUN/CR 32/1.40>34/1.40-->38/1.5 today base line appear to be at 30-32/100-1.30 Will closely monitor renal function due to the use of diuretics Renally dose medication Avoid nephrotoxic agents Monitor Subjective Date/time seen: 11/16/21 11:43 11/16/2021 Interval history: patient is 76-year-old male presented with shortness of breath is found to have acute on chronic systolic congestive Heart failure with eject
[2021-11-16] MEDS: metOLazone 2.5 MG TABLET PO (13:22)
[2021-11-16 16:19] LABS: Glucose Point of Care 188 mg/dl (65-105)
[2021-11-16] MEDS: ATORVASTATIN 40 MG TABLET PO (20:37)
[2021-11-16 20:59] LABS: Glucose Point of Care 219 mg/dl (65-105)
[2021-11-17] VITALS (13 sets, daily range): BP systolic 95–130; BP diastolic 60–68; PULSE 76–111; RESP 12–20; TEMP 35.8–36.6; O2SAT 95–99
[2021-11-17] MEDS: MELATONIN 3 MG TABLET PO (02:35)
[2021-11-17] MEDS: GABAPENTIN 300 MG CAPSULE 600 MG PO ×3 (05:12→20:57)
[2021-11-17 05:45] LABS: Basophils Absolute Auto 0.1 K/mm3 (0.0-0.1); Basophils Percent Auto 0.9 % (0.2-1.2); Eosinophils Absolute Auto 0.2 K/mm3 (0-0.3); Eosinophils Percent Auto 3.7 % (0-4.4); Hematocrit 33.4 % (42.0-52.0); Immature Granulocyte Absolute 0.02 K/mm3 (0.00-0.031); Immature Granulocyte Percent A 0.3 % (0-0.5); Lymphocytes Absolute Auto 0.88 K/mm3 (0.9-3.2); Lymphocytes Percent Auto 13.7 % (18.3-44.2); Mean Corpuscular HGB Conc 29.9 g/dl (32-36); Mean Corpuscular Hemoglobin 28.2 pg (26-34); Mean Corpuscular Volume 94.1 fl (80-100); Monocytes Absolute Auto 0.7 K/mm3 (0.1-0.6); Monocytes Percent Auto 11.3 % (2.6-8.5); Neutrophils Absolute Auto 4.5 K/mm3 (1.3-6.7); Neutrophils Percent Auto 70.1 % (45.5-73.1); Platelet Count Result 208 k/mm3 (150-375); Red Blood Count 3.55 M/mm3 (4.6-6.20); Red Cell Distribution Width 15.9 % (11.5-14.5); White Blood Count 6.4 K/mm3 (4.5-10.0)
[2021-11-17 06:02] LABS: Anion Gap 9 mmol/L (8-16); Blood Urea Nitrogen 44 mg/dL (9-20); Calcium 8.4 mg/dL (8.4-10.2); Carbon Dioxide 32 mmol/L (22-30); Chloride 98 mmol/L (98-107); Estimated CRCL calculation 44 ml/min; Estimated Glomerular Filt Rate 42; Glucose 238 mg/dL (65-110); Magnesium 2.2 mg/dL (1.6-2.3); Potassium 3.9 mmol/L (3.4-5.0); Sodium 139 mmol/L (137-145)
[2021-11-17 07:54] LABS: Glucose Point of Care 172 mg/dl (65-105)
[2021-11-17] MEDS: INSULIN ASPART (*BKC) 100 UNITS/ML 6 UNITS SUB-Q ×3 (08:15→17:12)
[2021-11-17] MEDS: ASPIRIN 81 MG ENTERIC TABLET PO (08:16)
[2021-11-17] MEDS: FUROSEMIDE INJ 40 MG/4 ML VIAL IV PUSH ×2 (08:16→17:12)
[2021-11-17] MEDS: ENOXAPARIN 40 MG/0.4 ML SYRINGE SUB-Q (08:16)
[2021-11-17] MEDS: METOPROLOL SUCCINATE EXT REL 25 MG TABCR PO (08:16)
[2021-11-17] MEDS: SPIRONOLACTONE 25 MG TABLET PO (08:18)
[2021-11-17 11:55] LABS: Glucose Point of Care 254 mg/dl (65-105)
--- NOTE | 2021-11-17 13:07 | PM.PNCARD ---
Progress Note: A&P Assessment and Plan (1) Acute on chronic systolic heart failure: Code(s): I50.23 - Acute on chronic systolic (congestive) heart failure Status: Acute Assessment and Plan: 76 year old male with CAD status post remote PCI/stenting-intervention report not available; CHF with reduced ejection fraction, PAD; paroxysmal atrial fibrillation/flutter, type 2 diabetes mellitus, history of falls. Patient presented with 10 day history of worsening lower extremity and scrotal swelling. Clinical presentation consistent with acute on chronic CHF with reduced ejection fraction. Echo from this admission shows LVEF 30%. Improving, but still has some edema...Continue IV furosemide today with close monitoring of renal function and electrolytes GDMT for HFrEF with metoprolol, spironolactone. Addition of ARNI when renal function stabilizes, addition of SGLT2 inhibitor when volume status is stable. Fluid restriction Compression stockings, keep feet elevated as much as possible Daily weights Accurate I&O Will give another dose of metolazone 5 mg p.o. x1 now (2) Atrial flutter with rapid ventricular response: Code(s): I48.92 - Unspecified atrial flutter Status: Acute Assessment and Plan: Patient has history of paroxysmal atrial fibrillation/flutter. Heart rates improved with metoprolol succinate. Due to recurrent falls, patient has not been deemed to be an appropriate candidate for chronic anticoagulation. He had a fall before hospitalization and has bruising and abrasions in the right forehead. His candidacy for left atrial appendage occlusion can be determined as an outpatient when patient follows up with his primary temper mill roller. (3) CAD (coronary artery disease): Qualifiers: Coronary Disease-Associated Artery/Lesion type: [place] artery [place] vs. transplanted heart: [place] heart Associated angina: without angina Qualified Code(s): I25.10 - Atherosclerotic heart disease of [place] coronary artery without angina pectoris Code(s): I25.10 - Atherosclerotic heart disease of [place] coronary artery without angina pectoris Status: Chronic Assessment and Plan: No active ischemic symptoms at present. Troponins are minimally elevated and essentially flat in the setting of CHF exacerbation. Patient has history of remote PCI/stenting. Resume low-dose aspirin; beta-huan and statin. Further ischemic evaluation for progression of CAD can be considered as an outpatient. Subjective Date/time seen: 11/17/21 13:07 Interval history: Pt seen and evaluated; labs, vs, diagnostic results, consult notes reviewed; per nursing staff pt had a fall this morning without injury; the pt states that he was trying to get back in bed; he expresses that he is upset because of the current fluid restriction order Review of Systems Review of Systems: All systems reviewed & are unremarkable except as noted in HPI and below Constitutional: Constitutional: Reports weakness Eyes: Eyes: Denies blurry vision ENT: Reports Normal hearing present Cardiovascular: Cardiovascular: Denies chest pain and Reports leg edema Respiratory: Respiratory: Reports dyspnea Gastrointestinal: Gastrointestinal: Denies abdominal pain Genitourinary: Genitourinary: Denies dysuria Musculoskeletal: Musculoskeletal: Denies neck pain Integumentary/Breasts: Skin/Breast: Denies dry skin Neurologic: Denies headache(s) Psychiatric: Psychiatric: Denies anxiety Endocrine: Endocrine: Denies excessive sweating Hematologic/Lymphatic: Hematologic/Lymphatic: Denies easy bruising Allergic/Immunologic: Allergic/Immunologic: Denies GI upset with certain foods Exam Narrative: PHYSICAL EXAMINATION: GENERAL: Alert, oriented, no acute distress; sitting in the chair MENTAL STATUS: Irritable EYES: Extraocular movements intact, no pallor EARS: External ears appear normal, hearing grossly normal NOSE: Normal and
--- NOTE | 2021-11-17 13:47 | PM.IMPN ---
Progress Note: A&P Assessment and Plan (1) Acute on chronic systolic heart failure: Code(s): I50.23 - Acute on chronic systolic (congestive) heart failure Status: Acute Assessment and Plan: [id number]>3940>3190-->3350 today CHF with reduced ejection fraction (LVEF 40% with segmental wall motion abnormality from 06/15/2021 echo) on 06/15/2021 continue telemetry continue Fluid restriction to 1500 cc daily cardiology consulted, recommendations appreciated continue Lasix , closely monitor electrolytes and renal function. spironolactone added per cardiology Continue metoprolol 25 mg daily. ACEI and ARB or preferably ARNI. Also consider adding SGLT2 inhibitor.will be added once renal function improve per cardio Monitor I/O Daily weights Continue to monitor Repeat Echocardiogram-->EF 30% Venous Doppler no DVTs indicated Chest x-ray indicates small bilateral pleural effusion 11/16/2021 Interval history: patient is 76-year-old male presented with shortness of breath is found to have acute on chronic systolic congestive Heart failure with ejection fraction of 30% patient is seen by Cardiology patient being diuresed with Lasix 40 mg IV b.i.d., also metoprolol, spironolactone, seen by ampoule filler and added 1 time dose metolazone 2.5 mg, patient is sitting in the chair eating his lunch is feeling much better not a short of breath as when he arrived his lower extremity edema is also improving, patient also participated in PT and OT will continue to monitor and further recommendation to follow. 11/17/2021 Interval history: patient is 76-year-old male presented with shortness of breath is found to have acute on chronic systolic congestive Heart failure with ejection fraction of 30% patient is seen by Cardiology patient being diuresed with Lasix 40 mg IV b.i.d., also metoprolol, spironolactone, seen by ampoule filler and on 11/16 added 1 time dose metolazone 2.5 mg, today increased it to 5mg x1 today, patient is feeling much better not a short of breath as when he arrived his lower extremity edema is also improving, patient also participated in PT and OT will continue to monitor and further recommendation to follow. (2) Anasarca: Code(s): R60.1 - Generalized edema Status: Acute Assessment and Plan: Secondary to congestive heart failure exacerbation (3) Paroxysmal atrial flutter: Code(s): I48.92 - Unspecified atrial flutter Status: Acute Assessment and Plan: Rate controlled Continue metoprolol 25 mg daily hx of fall , not candidate for anticoagulation ekg omn admission ATRIAL FLUTTER/TACHYCARDIA WITH RAPID VENTRICULAR RESPONSE with hr 109 currently trop 0.035>0.035>0.034 Cardiology consulted Tele monitoring (4) Spinal stenosis of lumbar region: Code(s): M48.061 - Spinal stenosis, lumbar region without neurogenic claudication Status: Acute Assessment and Plan: Status post spinal fusion surgery F/u with pcp (5) CAD (coronary artery disease): Qualifiers: Coronary Disease-Associated Artery/Lesion type: [place] artery [place] vs. transplanted heart: [place] heart Associated angina: without angina Qualified Code(s): I25.10 - Atherosclerotic heart disease of [place] coronary artery without angina pectoris Code(s): I25.10 - Atherosclerotic heart disease of [place] coronary artery without angina pectoris Status: Chronic Assessment and Plan: continue statin. BB, ASA hx of stent placement f/u with primary ampoule filler (6) DM2 (diabetes mellitus, type 2): Qualifiers: Diabetes mellitus assisted insulin use: without assisted use Diabetes mellitus complication status: with other specified complication Qualified Code(s): E11.69 - Type 2 diabetes mellitus with other specified complication Code(s): E11.9 - Type 2 diabetes mellitus without complications Status: Chronic Assessment and Plan: Last Hgb A1c 7.2 06/16/21, will check current Hold ora
--- NOTE | 2021-11-17 14:45 | PCOTNOTE ---
Attempted to see patient twice this date. First attempt, patient was eating lunch. Second attempt, patient was unavailable with nursing staff.
[2021-11-17 16:33] LABS: Glucose Point of Care 121 mg/dl (65-105)
[2021-11-17] MEDS: metOLazone 5 MG TABLET PO (17:11)
[2021-11-17] MEDS: ONDANSETRON INJ 4 MG/2 ML VIAL IV PUSH (18:51)
[2021-11-17] MEDS: ACETAMINOPHEN 500 MG TABLET 1000 MG PO (20:57)
[2021-11-17] MEDS: ATORVASTATIN 40 MG TABLET PO (20:57)
[2021-11-17 21:03] LABS: Glucose Point of Care 182 mg/dl (65-105)
[2021-11-18] VITALS (14 sets, daily range): BP systolic 95–119; BP diastolic 51–77; PULSE 67–99; RESP 16–20; TEMP 36.3–36.6; O2SAT 93–99
[2021-11-18] MEDS: GABAPENTIN 300 MG CAPSULE 600 MG PO ×3 (05:39→21:56)
[2021-11-18 07:36] LABS: Glucose Point of Care 212 mg/dl (65-105)
[2021-11-18] MEDS: ASPIRIN 81 MG ENTERIC TABLET PO (08:21)
[2021-11-18] MEDS: ENOXAPARIN 40 MG/0.4 ML SYRINGE SUB-Q (08:21)
[2021-11-18] MEDS: INSULIN ASPART (*BKC) 100 UNITS/ML 6 UNITS SUB-Q ×3 (08:21→17:02)
[2021-11-18] MEDS: FUROSEMIDE INJ 40 MG/4 ML VIAL IV PUSH ×2 (08:22→17:03)
[2021-11-18] MEDS: METOPROLOL SUCCINATE EXT REL 25 MG TABCR PO (08:22)
[2021-11-18] MEDS: SPIRONOLACTONE 25 MG TABLET PO (08:22)
[2021-11-18 08:57] LABS: Basophils Absolute Auto 0.1 K/mm3 (0.0-0.1); Basophils Percent Auto 0.8 % (0.2-1.2); Eosinophils Absolute Auto 0.2 K/mm3 (0-0.3); Eosinophils Percent Auto 2.1 % (0-4.4); Hematocrit 35.8 % (42.0-52.0); Hemoglobin 10.3 g/dL (14.0-18.0); Immature Granulocyte Absolute 0.03 K/mm3 (0.00-0.031); Immature Granulocyte Percent A 0.4 % (0-0.5); Lymphocytes Absolute Auto 1.06 K/mm3 (0.9-3.2); Lymphocytes Percent Auto 14.2 % (18.3-44.2); Mean Corpuscular HGB Conc 28.8 g/dl (32-36); Mean Corpuscular Hemoglobin 27.6 pg (26-34); Monocytes Percent Auto 13.1 % (2.6-8.5); Neutrophils Absolute Auto 5.2 K/mm3 (1.3-6.7); Neutrophils Percent Auto 69.4 % (45.5-73.1); Platelet Count Result 222 k/mm3 (150-375); Red Blood Count 3.73 M/mm3 (4.6-6.20); White Blood Count 7.5 K/mm3 (4.5-10.0)
[2021-11-18 09:10] LABS: Anion Gap 7 mmol/L (8-16); Blood Urea Nitrogen 50 mg/dL (9-20); Calcium 8.6 mg/dL (8.4-10.2); Carbon Dioxide 31 mmol/L (22-30); Chloride 99 mmol/L (98-107); Estimated CRCL calculation 36 ml/min; Estimated Glomerular Filt Rate 35; Glucose 206 mg/dL (65-110); Magnesium 2.3 mg/dL (1.6-2.3); Potassium 4.7 mmol/L (3.4-5.0); Sodium 137 mmol/L (137-145)
[2021-11-18 09:16] LABS: Platelet Estimate Adequate (Adequate)
[2021-11-18 09:17] LABS: Anisocytosis 1+ (NORMAL); Ovalocytes 1+ (NORMAL); Poikilocytosis 1+ (NORMAL)
[2021-11-18 11:22] LABS: Glucose Point of Care 267 mg/dl (65-105)
--- NOTE | 2021-11-18 14:31 | PM.PNCARD ---
Progress Note: A&P Assessment and Plan (1) Acute on chronic systolic heart failure: Code(s): I50.23 - Acute on chronic systolic (congestive) heart failure Status: Acute Assessment and Plan: 76 year old male with CAD status post remote PCI/stenting-intervention report not available; CHF with reduced ejection fraction, PAD; paroxysmal atrial fibrillation/flutter, type 2 diabetes mellitus, history of falls. Patient presented with 10 day history of worsening lower extremity and scrotal swelling. Clinical presentation consistent with acute on chronic CHF with reduced ejection fraction. Echo from this admission shows LVEF 30%. Continues to make slow improvement. GDMT for HFrEF with metoprolol, spironolactone. Addition of ARNI when renal function stabilizes, Unfortunately his creatinine continues to rise. Addition of SGLT2 inhibitor when volume status is stable. Fluid restriction Compression stockings, keep feet elevated as much as possible Daily weights Accurate I&O I talked to him at length about the concept of a LifeVest as he is at increased risk for sudden cardiac because of his cardiomyopathy. After some consideration patient states like to proceed with a LifeVest. (2) Atrial flutter with rapid ventricular response: Code(s): I48.92 - Unspecified atrial flutter Status: Acute Assessment and Plan: Patient has history of paroxysmal atrial fibrillation/flutter. Heart rates improved with metoprolol succinate. Due to recurrent falls, patient has not been deemed to be an appropriate candidate for chronic anticoagulation. He had a fall before hospitalization and has bruising and abrasions in the right forehead. He has also had a fall while in the hospital. His candidacy for left atrial appendage occlusion can be determined as an outpatient when patient follows up with his primary tombstone carver. (3) CAD (coronary artery disease): Qualifiers: Associated angina: without angina Coronary Disease-Associated Artery/Lesion type: [place] artery [place] vs. transplanted heart: [place] heart Qualified Code(s): I25.10 - Atherosclerotic heart disease of [place] coronary artery without angina pectoris Code(s): I25.10 - Atherosclerotic heart disease of [place] coronary artery without angina pectoris Status: Chronic Assessment and Plan: No active ischemic symptoms at present. Troponins are minimally elevated and essentially flat in the setting of CHF exacerbation. Patient has history of remote PCI/stenting. Resume low-dose aspirin; beta-huan and statin. Further ischemic evaluation for progression of CAD can be considered as an outpatient. Subjective Date/time seen: 11/18/21 14:31 Cardiology follow up for CHF Interval history: Feels a little better today. Does still have some lower extremity edema and BERMUDEZ. He states he is irritated and wants to go home. No chest pain, palpitations. Review of Systems Review of Systems: All systems reviewed & are unremarkable except as noted in HPI and below Constitutional: Constitutional: Denies excessive sweating, Denies headache(s) and Reports weakness Eyes: Eyes: Denies blurry vision ENT: Reports Normal hearing present, Denies headache(s) and Denies neck pain Cardiovascular: Cardiovascular: Denies chest pain, Reports leg edema and Reports dyspnea Respiratory: Respiratory: Reports dyspnea Gastrointestinal: Gastrointestinal: Denies abdominal pain Genitourinary: Genitourinary: Denies dysuria Musculoskeletal: Musculoskeletal: Denies neck pain Integumentary/Breasts: Skin/Breast: Denies dry skin Neurologic: Reports Normal hearing present, Denies headache(s) and Reports weakness Psychiatric: Psychiatric: Denies anxiety Endocrine: Endocrine: Denies excessive sweating Hematologic/Lymphatic: Hematologic/Lymphatic: Denies easy bruising Allergic/Immunologic: Allergic/Immunologic: Denies GI upset with certain foods Exam Con
--- NOTE | 2021-11-18 16:08 | PM.IMPN ---
Progress Note: A&P Assessment and Plan (1) Acute on chronic systolic heart failure: Code(s): I50.23 - Acute on chronic systolic (congestive) heart failure Status: Acute Assessment and Plan: [id number]>3940>3190-->3350 today CHF with reduced ejection fraction (LVEF 40% with segmental wall motion abnormality from 06/15/2021 echo) on 06/15/2021 continue telemetry continue Fluid restriction to 1500 cc daily cardiology consulted, recommendations appreciated continue Lasix , closely monitor electrolytes and renal function. spironolactone added per cardiology Continue metoprolol 25 mg daily. ACEI and ARB or preferably ARNI. Also consider adding SGLT2 inhibitor.will be added once renal function improve per cardio Monitor I/O Daily weights Continue to monitor Repeat Echocardiogram-->EF 30% Venous Doppler no DVTs indicated Chest x-ray indicates small bilateral pleural effusion 11/16/2021 Interval history: patient is 76-year-old male presented with shortness of breath is found to have acute on chronic systolic congestive Heart failure with ejection fraction of 30% patient is seen by Cardiology patient being diuresed with Lasix 40 mg IV b.i.d., also metoprolol, spironolactone, seen by software design manager and added 1 time dose metolazone 2.5 mg, patient is sitting in the chair eating his lunch is feeling much better not a short of breath as when he arrived his lower extremity edema is also improving, patient also participated in PT and OT will continue to monitor and further recommendation to follow. 11/17/2021 Interval history: patient is 76-year-old male presented with shortness of breath is found to have acute on chronic systolic congestive Heart failure with ejection fraction of 30% patient is seen by Cardiology patient being diuresed with Lasix 40 mg IV b.i.d., also metoprolol, spironolactone, seen by software design manager and on 11/16 added 1 time dose metolazone 2.5 mg, today increased it to 5mg x1 today, patient is feeling much better not a short of breath as when he arrived his lower extremity edema is also improving, patient also participated in PT and OT will continue to monitor and further recommendation to follow. 11/18/2021 Interval history: patient is 76-year-old male presented with shortness of breath is found to have acute on chronic systolic congestive Heart failure with ejection fraction of 30% patient is seen by Cardiology patient being diuresed with Lasix 40 mg IV b.i.d., also metoprolol, spironolactone, seen by software design manager and on 11/16 added 1 time dose metolazone 2.5 mg, on 11/17 increased it to 5mg x1, today patient seen by Cardiology recommended to continue present management, patient is feeling much better not as short of breath as when he arrived, his lower extremity edema is also improving, patient also participated in PT and OT will continue to monitor and further recommendation to follow. (2) Anasarca: Code(s): R60.1 - Generalized edema Status: Acute Assessment and Plan: Secondary to congestive heart failure exacerbation (3) Paroxysmal atrial flutter: Code(s): I48.92 - Unspecified atrial flutter Status: Acute Assessment and Plan: Rate controlled Continue metoprolol 25 mg daily hx of fall , not candidate for anticoagulation ekg omn admission ATRIAL FLUTTER/TACHYCARDIA WITH RAPID VENTRICULAR RESPONSE with hr 109 currently trop 0.035>0.035>0.034 Cardiology consulted Tele monitoring (4) Spinal stenosis of lumbar region: Code(s): M48.061 - Spinal stenosis, lumbar region without neurogenic claudication Status: Acute Assessment and Plan: Status post spinal fusion surgery F/u with pcp (5) CAD (coronary artery disease): Qualifiers: Coronary Disease-Associated Artery/Lesion type: [place] artery [place] vs. transplanted heart: [place] heart Associated angina: without angina Qualified Code(s): I25.10 - Atherosclerotic heart disease of [place] coronary artery without angina p
[2021-11-18 16:39] LABS: Glucose Point of Care 145 mg/dl (65-105)
[2021-11-18] MEDS: MELATONIN 3 MG TABLET PO (21:56)
[2021-11-18] MEDS: ATORVASTATIN 40 MG TABLET PO (21:56)
[2021-11-18 22:20] LABS: Glucose Point of Care 124 mg/dl (65-105)
[2021-11-19] VITALS (14 sets, daily range): BP systolic 97–115; BP diastolic 50–79; PULSE 70–98; RESP 16–20; TEMP 36.2–37; O2SAT 93–100
[2021-11-19] MEDS: GABAPENTIN 300 MG CAPSULE 600 MG PO ×3 (06:06→21:04)
[2021-11-19 06:13] LABS: Basophils Absolute Auto 0.1 K/mm3 (0.0-0.1); Basophils Percent Auto 0.9 % (0.2-1.2); Eosinophils Absolute Auto 0.1 K/mm3 (0-0.3); Eosinophils Percent Auto 1.1 % (0-4.4); Hematocrit 34.1 % (42.0-52.0); Hemoglobin 10.1 g/dL (14.0-18.0); Immature Granulocyte Absolute 0.04 K/mm3 (0.00-0.031); Immature Granulocyte Percent A 0.5 % (0-0.5); Lymphocytes Absolute Auto 1.37 K/mm3 (0.9-3.2); Lymphocytes Percent Auto 15.7 % (18.3-44.2); Mean Corpuscular HGB Conc 29.6 g/dl (32-36); Mean Corpuscular Hemoglobin 27.5 pg (26-34); Mean Corpuscular Volume 92.9 fl (80-100); Monocytes Absolute Auto 1.1 K/mm3 (0.1-0.6); Monocytes Percent Auto 12.4 % (2.6-8.5); Neutrophils Percent Auto 69.4 % (45.5-73.1); Platelet Count Result 253 k/mm3 (150-375); Red Blood Count 3.67 M/mm3 (4.6-6.20); Red Cell Distribution Width 15.9 % (11.5-14.5); White Blood Count 8.7 K/mm3 (4.5-10.0)
[2021-11-19 06:21] LABS: Anion Gap 7 mmol/L (8-16); Blood Urea Nitrogen 57 mg/dL (9-20); Calcium 8.6 mg/dL (8.4-10.2); Carbon Dioxide 33 mmol/L (22-30); Chloride 97 mmol/L (98-107); Estimated CRCL calculation 35 ml/min; Estimated Glomerular Filt Rate 33; Glucose 114 mg/dL (65-110); Magnesium 2.2 mg/dL (1.6-2.3); Potassium 4.5 mmol/L (3.4-5.0); Sodium 137 mmol/L (137-145)
[2021-11-19 07:59] LABS: Glucose Point of Care 105 mg/dl (65-105)
[2021-11-19] MEDS: METOPROLOL SUCCINATE EXT REL 25 MG TABCR PO (08:16)
[2021-11-19] MEDS: ENOXAPARIN 40 MG/0.4 ML SYRINGE SUB-Q (08:16)
[2021-11-19] MEDS: ASPIRIN 81 MG ENTERIC TABLET PO (08:16)
[2021-11-19] MEDS: FUROSEMIDE INJ 40 MG/4 ML VIAL IV PUSH (08:16)
[2021-11-19] MEDS: SPIRONOLACTONE 25 MG TABLET PO (08:16)
--- NOTE | 2021-11-19 08:41 | PM.IMPN ---
Progress Note: A&P Assessment and Plan (1) Acute on chronic systolic heart failure: Code(s): I50.23 - Acute on chronic systolic (congestive) heart failure Status: Acute Assessment and Plan: [id number]>3940>3190-->3350 CHF with reduced ejection fraction (LVEF 40% with segmental wall motion abnormality from 06/15/2021 echo) on 06/15/2021 continue telemetry continue Fluid restriction to 1500 cc daily cardiology consulted, recommendations appreciated continue Lasix , closely monitor electrolytes and renal function. spironolactone added per cardiology Continue metoprolol 25 mg daily. ACEI and ARB or preferably ARNI. Also consider adding SGLT2 inhibitor.will be added once renal function improve per cardio Monitor I/O Daily weights Continue to monitor Repeat Echocardiogram-->EF 30% Venous Doppler no DVTs indicated Chest x-ray indicates small bilateral pleural effusion 11/16/2021 Interval history: patient is 76-year-old male presented with shortness of breath is found to have acute on chronic systolic congestive Heart failure with ejection fraction of 30% patient is seen by Cardiology patient being diuresed with Lasix 40 mg IV b.i.d., also metoprolol, spironolactone, seen by resources representative and added 1 time dose metolazone 2.5 mg, patient is sitting in the chair eating his lunch is feeling much better not a short of breath as when he arrived his lower extremity edema is also improving, patient also participated in PT and OT will continue to monitor and further recommendation to follow. 11/17/2021 Interval history: patient is 76-year-old male presented with shortness of breath is found to have acute on chronic systolic congestive Heart failure with ejection fraction of 30% patient is seen by Cardiology patient being diuresed with Lasix 40 mg IV b.i.d., also metoprolol, spironolactone, seen by resources representative and on 11/16 added 1 time dose metolazone 2.5 mg, today increased it to 5mg x1 today, patient is feeling much better not a short of breath as when he arrived his lower extremity edema is also improving, patient also participated in PT and OT will continue to monitor and further recommendation to follow. 11/18/2021 Interval history: patient is 76-year-old male presented with shortness of breath is found to have acute on chronic systolic congestive Heart failure with ejection fraction of 30% patient is seen by Cardiology patient being diuresed with Lasix 40 mg IV b.i.d., also metoprolol, spironolactone, seen by resources representative and on 11/16 added 1 time dose metolazone 2.5 mg, on 11/17 increased it to 5mg x1, today patient seen by Cardiology recommended to continue present management, patient is feeling much better not as short of breath as when he arrived, his lower extremity edema is also improving, patient also participated in PT and OT will continue to monitor and further recommendation to follow. 11/19/21 presented with shortness of breath with elevated BNP chest x-ray with bilateral effusion suggestive of acute on chronic congestive heart failure. Ejection fraction 30% worsened from last year when it was 40%. Diurese with Lasix 40 mg IV b.i.d. and intermittent metolazone. Renal function 1.3 creatinine on admission now up to 2. Diuresed well. He is negative almost 10 L 5 kilos weight down since admission. Cardiology on board. On beta-huan metoprolol 25 every a.m. spironolactone 25 every a.m. addition of AR and I planned when renal function stabilizes addition of SGOT 2 inhibitor is also planned in future. LifeVest has been recommended and he is willing to use revaluation of ejection fraction in short follow-up to check any improvement otherwise consideration of ICD will be made at that point. Plan to switch to oral Lasix and monitor renal function on oral diuretic if weight remains stable plan for discharge in 1-2 days (2) Anasarca: Code(s): R60.1 - Generalized edema Status: Acute Assessment and Plan: Secondary to congestive heart
--- NOTE | 2021-11-19 08:45 | PCOTNOTE ---
Attempted to see pt for occupational therapy this AM, however, when attempting to explain to pt that therapy would return once he was done with breakfast, pt was very agitated due to not being able to enjoy his breakfast in peace and stating You are a pain in my ass...leave and don't come back. INTEGRATED CIRCUIT DESIGN ENGINEER was notified of pt's response and refusal. Will continue per poc duration/frequency tomorrow.
--- NOTE | 2021-11-19 09:26 | PCNWS ---
Weekly nutritional screen. Patient is tolerating current diet with adequate intake. No weight loss reported. No nutritional needs at this time.
--- NOTE | 2021-11-19 10:09 | PM.PNCARD ---
Progress Note: A&P Assessment and Plan (1) Acute on chronic systolic heart failure: Code(s): I50.23 - Acute on chronic systolic (congestive) heart failure Status: Acute Assessment and Plan: 76 year old male with CAD status post remote PCI/stenting-intervention report not available; CHF with reduced ejection fraction, PAD; paroxysmal atrial fibrillation/flutter, type 2 diabetes mellitus, history of falls. Patient presented with 10 day history of worsening lower extremity and scrotal swelling. Clinical presentation consistent with acute on chronic CHF with reduced ejection fraction. Echo from this admission shows LVEF 30%. Continues to make slow improvement. Will shift him from IV to oral furosemide today. GDMT for HFrEF with metoprolol, spironolactone. He is having frequent ventricular ectopy increase metoprolol to 37.5 mg daily. Electrolytes within normal limits. Addition of ARNI when renal function stabilizes, Unfortunately his creatinine continues to rise. Addition of SGLT2 inhibitor when volume status is stable. Fluid restriction Compression stockings, keep feet elevated as much as possible Daily weights Accurate I&O I talked to him at length about the concept of a LifeVest as he is at increased risk for sudden cardiac because of his cardiomyopathy. LifeVest has been ordered Possible discharge tomorrow (2) Atrial flutter with rapid ventricular response: Code(s): I48.92 - Unspecified atrial flutter Status: Acute Assessment and Plan: Patient has history of paroxysmal atrial fibrillation/flutter. Heart rates improved with metoprolol succinate. Due to recurrent falls, patient has not been deemed to be an appropriate candidate for chronic anticoagulation. He had a fall before hospitalization and has bruising and abrasions in the right forehead. He has also had a fall while in the hospital. His candidacy for left atrial appendage occlusion can be determined as an outpatient when patient follows up with his primary circuit design engineer. (3) CAD (coronary artery disease): Qualifiers: Associated angina: without angina Coronary Disease-Associated Artery/Lesion type: [place] artery [place] vs. transplanted heart: [place] heart Qualified Code(s): I25.10 - Atherosclerotic heart disease of [place] coronary artery without angina pectoris Code(s): I25.10 - Atherosclerotic heart disease of [place] coronary artery without angina pectoris Status: Chronic Assessment and Plan: No active ischemic symptoms at present. Troponins are minimally elevated and essentially flat in the setting of CHF exacerbation. Patient has history of remote PCI/stenting. Resume low-dose aspirin; beta-huan and statin. Further ischemic evaluation for progression of CAD can be considered as an outpatient. Subjective Date/time seen: 11/19/21 10:09 Cardiology follow-up for CHF He is feeling better today. Has less swelling in his lower extremities, breathing is okay though he has not been out of bed yet today. He is complaining of feeling weak. Review of Systems Review of Systems: All systems reviewed & are unremarkable except as noted in HPI and below Constitutional: Constitutional: Denies excessive sweating, Denies headache(s) and Reports weakness Eyes: Eyes: Denies blurry vision ENT: Reports Normal hearing present, Denies headache(s) and Denies neck pain Cardiovascular: Cardiovascular: Denies chest pain, Reports leg edema and Reports dyspnea Respiratory: Respiratory: Reports dyspnea Gastrointestinal: Gastrointestinal: Denies abdominal pain Genitourinary: Genitourinary: Denies dysuria Musculoskeletal: Musculoskeletal: Denies neck pain Integumentary/Breasts: Skin/Breast: Denies dry skin Neurologic: Reports Normal hearing present, Denies headache(s) and Reports weakness Psychiatric: Psychiatric: Denies anxiety Endocrine: Endocrine: Denies excessive sweating Hematologic/Ly
[2021-11-19 11:35] LABS: Glucose Point of Care 158 mg/dl (65-105)
[2021-11-19] MEDS: INSULIN ASPART (*BKC) 100 UNITS/ML 6 UNITS SUB-Q ×2 (13:04→17:38)
[2021-11-19] MEDS: ACETAMINOPHEN 500 MG TABLET 1000 MG PO (16:07)
[2021-11-19] MEDS: FUROSEMIDE 40 MG TABLET PO (16:07)
[2021-11-19 16:53] LABS: Glucose Point of Care 150 mg/dl (65-105)
[2021-11-19 20:25] LABS: Glucose Point of Care 205 mg/dl (65-105)
[2021-11-19] MEDS: ATORVASTATIN 40 MG TABLET PO (21:03)
[2021-11-19] MEDS: MELATONIN 3 MG TABLET PO (21:04)
[2021-11-20] VITALS (8 sets, daily range): BP systolic 110–121; BP diastolic 62–71; PULSE 72–88; RESP 16–18; TEMP 35.8–36.2; O2SAT 93–100
[2021-11-20 05:37] LABS: Basophils Absolute Auto 0.1 K/mm3 (0.0-0.1); Basophils Percent Auto 0.7 % (0.2-1.2); Eosinophils Absolute Auto 0.2 K/mm3 (0-0.3); Hematocrit 33.5 % (42.0-52.0); Hemoglobin 10.3 g/dL (14.0-18.0); Immature Granulocyte Absolute 0.03 K/mm3 (0.00-0.031); Immature Granulocyte Percent A 0.4 % (0-0.5); Lymphocytes Absolute Auto 1.19 K/mm3 (0.9-3.2); Lymphocytes Percent Auto 13.9 % (18.3-44.2); Mean Corpuscular HGB Conc 30.7 g/dl (32-36); Mean Corpuscular Hemoglobin 27.6 pg (26-34); Mean Corpuscular Volume 89.8 fl (80-100); Mean Platelet Volume 10.2 fl (7.4-10.4); Monocytes Absolute Auto 1.2 K/mm3 (0.1-0.6); Monocytes Percent Auto 13.9 % (2.6-8.5); Neutrophils Absolute Auto 5.9 K/mm3 (1.3-6.7); Neutrophils Percent Auto 69.1 % (45.5-73.1); Nucleated Red Blood Cells Perc 0.2 % (0.0-0.2); Platelet Count Result 264 k/mm3 (150-375); Red Blood Count 3.73 M/mm3 (4.6-6.20); Red Cell Distribution Width 15.9 % (11.5-14.5); White Blood Count 8.6 K/mm3 (4.5-10.0)
[2021-11-20 05:51] LABS: Anion Gap 6 mmol/L (8-16); Blood Urea Nitrogen 64 mg/dL (9-20); Calcium 8.3 mg/dL (8.4-10.2); Carbon Dioxide 34 mmol/L (22-30); Chloride 95 mmol/L (98-107); Estimated CRCL calculation 31 ml/min; Estimated Glomerular Filt Rate 28; Glucose 222 mg/dL (65-110); Magnesium 2.2 mg/dL (1.6-2.3); Potassium 4.2 mmol/L (3.4-5.0); Sodium 135 mmol/L (137-145)
[2021-11-20 08:18] LABS: Glucose Point of Care 179 mg/dl (65-105)
[2021-11-20] MEDS: FUROSEMIDE 40 MG TABLET PO (08:29)
[2021-11-20] MEDS: METOPROLOL SUCCINATE EXT REL 12.5 MG TABCR 37.5 MG PO (08:29)
[2021-11-20] MEDS: ASPIRIN 81 MG ENTERIC TABLET PO (08:29)
[2021-11-20] MEDS: ENOXAPARIN 40 MG/0.4 ML SYRINGE SUB-Q (08:29)
[2021-11-20] MEDS: SPIRONOLACTONE 25 MG TABLET PO (08:29)
[2021-11-20] MEDS: INSULIN ASPART (*BKC) 100 UNITS/ML 6 UNITS SUB-Q ×2 (08:31→11:50)
--- NOTE | 2021-11-20 11:15 | PM.PNCARD ---
Progress Note: A&P Assessment and Plan (1) Acute on chronic systolic heart failure: Code(s): I50.23 - Acute on chronic systolic (congestive) heart failure Status: Acute Assessment and Plan: 76 year old male with CAD status post remote PCI/stenting-intervention report not available; CHF with reduced ejection fraction, PAD; paroxysmal atrial fibrillation/flutter, type 2 diabetes mellitus, history of falls. Patient presented with 10 day history of worsening lower extremity and scrotal swelling. Clinical presentation consistent with acute on chronic CHF with reduced ejection fraction. Echo from this admission shows LVEF 30%. Continues to make slow improvement. Changed from IV to oral furosemide 11/19/2021. GDMT for HFrEF with metoprolol, spironolactone. He is having frequent ventricular ectopy increase metoprolol to 37.5 mg daily. Electrolytes within normal limits. Addition of ARNI when renal function stabilizes, Unfortunately his creatinine continues to rise. Addition of SGLT2 inhibitor when volume status is stable. Fluid restriction Compression stockings, keep feet elevated as much as possible Daily weights--reviewed w/ pt Low Na+ diet Cris MEYER discussed LifeVest as he is at increased risk for sudden cardiac because of his cardiomyopathy. Pt agreed. I encouraged him to wear it all the time except when he was in the shower. Pt has improved but is not compensated. Can not tolerate further IV diuretics at this point due to worsening renal insufficiency. I have some reservations about his success on discharge, connie since he lives alone and has such significant edema, but reasonable to see how he does w/ close FU and C, and hopefully he will slowly cont to diurese w/o aggravating his renal fxn further. If he relapses, then we could consider IV milrinone (or dobutamine, but he has had some ventricular ectopy which may be problematic), a lasix drip, etc. Discussed w/ pt's RN and DR. Arteaga Also recommended that pt ask for help as he will not be able to get around well for the next couple of weeks. (2) Atrial flutter with rapid ventricular response: Code(s): I48.92 - Unspecified atrial flutter Status: Acute Assessment and Plan: Patient has history of paroxysmal atrial fibrillation/flutter. Heart rates improved with metoprolol succinate. Due to recurrent falls, patient has not been deemed to be an appropriate candidate for chronic anticoagulation. He had a fall before hospitalization and has bruising and abrasions in the right forehead. He has also had a fall while in the hospital. 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 (3) CAD (coronary artery disease): Qualifiers: Coronary Disease-Associated Artery/Lesion type: [place] artery [place] vs. transplanted heart: [place] heart Associated angina: without angina Qualified Code(s): I25.10 - Atherosclerotic heart disease of [place] coronary artery without angina pectoris Code(s): I25.10 - Atherosclerotic heart disease of [place] coronary artery without angina pectoris Status: Chronic Assessment and Plan: No active ischemic symptoms at present. Troponins are minimally elevated and essentially flat in the setting of CHF exacerbation. Patient has history of remote PCI/stenting. Resume low-dose aspirin; beta-huan and statin. Further ischemic evaluation for progression of CAD can be considered as an outpatient. Subjective Date/time seen: 11/20/21 11:15 Interval history: Pt w/ CAD admitted w/ new onset CHF and 30-35%. 11/19/2021: Feels a little better today. Does still have some lower extremity edema and BERMUDEZ. He states he is irritated and wants to go home. No chest pain, palpitations. Date of service 11/20/2021: Still w/ BERMUDEZ and edema. Fitted for LIfe VEst. Not needing O2. Had declined [facility] initiall
[2021-11-20 11:35] LABS: Glucose Point of Care 325 mg/dl (65-105)
--- NOTE | 2021-11-20 13:39 | PM.DS ---
DS: Admitting Diagnosis Discharge Date 11/20/2021 Admitting Diagnosis Bilateral lower extremity swelling DS: Discharge Diagnosis Discharge Diagnosis (1) Acute on chronic systolic heart failure: Code(s): I50.23 - Acute on chronic systolic (congestive) heart failure Status: Acute Assessment and Plan: [id number]-->[id number] CHF with reduced ejection fraction (LVEF 40% with segmental wall motion abnormality from 06/15/2021 echo) on 06/15/2021 continue telemetry continue Fluid restriction to 1500 cc daily cardiology consulted, recommendations appreciated continue Lasix , closely monitor electrolytes and renal function. spironolactone added per cardiology Continue metoprolol 25 mg daily. ACEI and ARB or preferably ARNI. Also consider adding SGLT2 inhibitor.will be added once renal function improve per cardio Monitor I/O Daily weights Continue to monitor Repeat Echocardiogram-->EF 30% Venous Doppler no DVTs indicated Chest x-ray indicates small bilateral pleural effusion 11/16/2021 Interval history: patient is 76-year-old male presented with shortness of breath is found to have acute on chronic systolic congestive Heart failure with ejection fraction of 30% patient is seen by Cardiology patient being diuresed with Lasix 40 mg IV b.i.d., also metoprolol, spironolactone, seen by banner painter and added 1 time dose metolazone 2.5 mg, patient is sitting in the chair eating his lunch is feeling much better not a short of breath as when he arrived his lower extremity edema is also improving, patient also participated in PT and OT will continue to monitor and further recommendation to follow. 11/17/2021 Interval history: patient is 76-year-old male presented with shortness of breath is found to have acute on chronic systolic congestive Heart failure with ejection fraction of 30% patient is seen by Cardiology patient being diuresed with Lasix 40 mg IV b.i.d., also metoprolol, spironolactone, seen by banner painter and on 11/16 added 1 time dose metolazone 2.5 mg, today increased it to 5mg x1 today, patient is feeling much better not a short of breath as when he arrived his lower extremity edema is also improving, patient also participated in PT and OT will continue to monitor and further recommendation to follow. 11/18/2021 Interval history: patient is 76-year-old male presented with shortness of breath is found to have acute on chronic systolic congestive Heart failure with ejection fraction of 30% patient is seen by Cardiology patient being diuresed with Lasix 40 mg IV b.i.d., also metoprolol, spironolactone, seen by banner painter and on 11/16 added 1 time dose metolazone 2.5 mg, on 11/17 increased it to 5mg x1, today patient seen by Cardiology recommended to continue present management, patient is feeling much better not as short of breath as when he arrived, his lower extremity edema is also improving, patient also participated in PT and OT will continue to monitor and further recommendation to follow. 11/19/21 presented with shortness of breath with elevated BNP chest x-ray with bilateral effusion suggestive of acute on chronic congestive heart failure. Ejection fraction 30% worsened from last year when it was 40%. Diurese with Lasix 40 mg IV b.i.d. and intermittent metolazone. Renal function 1.3 creatinine on admission now up to 2. Diuresed well. He is negative almost 10 L 5 kilos weight down since admission. Cardiology on board. On beta-huan metoprolol 25 every a.m. spironolactone 25 every a.m. addition of AR and I planned when renal function stabilizes addition of SGOT 2 inhibitor is also planned in future. LifeVest has been recommended and he is willing to use revaluation of ejection fraction in short follow-up to check any improvement otherwise consideration of ICD will be made at that point. Plan to switch to oral Lasix and monitor renal function on oral diuretic if weight remains stable plan for discharge in 1-2 days (2) Anasarca:
== END 2021-11-20 14:10 | disposition home health service (06) | DRG 292 ==
LOC: ANHED 19:16 → ANH2MED 21:07
PROVIDERS: Nurse Practitioner; Nurse Practitioner Adult Health; Admitting Provider Family Medicine; Emergency Provider Emergency Medicine; PCP Physician Assistant; Visit Provider Family Medicine
DX: I50.23 Acute on chronic systolic (congestive) heart failure (principal); N18.4 Chronic kidney disease, stage 4 (severe); N17.9 Acute kidney failure, unspecified; I48.92 Unspecified atrial flutter; I42.9 Cardiomyopathy, unspecified; I27.20 Pulmonary hypertension, unspecified; Z20.822 Contact with and (suspected) exposure to COVID-19; E11.51 Type 2 diabetes mellitus with diabetic peripheral angiopathy without gangrene; E11.22 Type 2 diabetes mellitus with diabetic chronic kidney disease; I48.0 Paroxysmal atrial fibrillation; M48.061 Spinal stenosis, lumbar region without neurogenic claudication; I25.10 Atherosclerotic heart disease of native coronary artery without angina pectoris; E78.5 Hyperlipidemia, unspecified; E53.8 Deficiency of other specified B group vitamins; Z96.651 Presence of right artificial knee joint; Z79.84 Long term (current) use of oral hypoglycemic drugs; Z79.899 Other long term (current) drug therapy; Z87.891 Personal history of nicotine dependence; Z91.81 History of falling; Z95.5 Presence of coronary angioplasty implant and graft; Z98.1 Arthrodesis status
CPT/HCPCS: 36415; 51702; 71046; 80048; 80053; 81001; 82948; 83036; 83735; 83880; 84484; 85025; 85027; 93005; 93970; 96372; 96374; 96375; 96376; 97110; 97116; 97161; 97165; 97530; 97535; 99285; A9270; C8929; C9803; G0378; J1650; J1815; J1940; J2405; Q9957; U0003; U0005

== ENCOUNTER → 2021-12-06 12:49 | Outpatient (CLI) | payer MEDICARE, OTHER, SELFPAY ==
--- NOTE | ~2021-12-06 | XR_ITS ---
XR chest 2V 12/06/2021 13:16 Indication: Cough for 2 weeks Procedure: 2 view chest Comparison: Comparison to multiple prior studies sequentially, with oldest reviewed study dated 08/09. Findings: Moderate right pleural effusion with underlying compressive atelectasis. Cardiomegaly. No f ocal pneumonia, edema or pneumothorax. Partially visualized spinal fixation rods and screws. Impression: 1: Moderate right pleural effusion with underlying compressive atelectasis. Reviewed, dictated and finalized at location A. GE PREVENTION COORDINATOR Impression: 1: Moderate right pleural effusion with underlying compressive atelectasis.
== END ==
PROVIDERS: PCP Physician Assistant; Visit Provider Physician Assistant
DX: R05.9 Cough, unspecified (principal); J90 Pleural effusion, not elsewhere classified
CPT/HCPCS: 71046